=== PATIENT | female | born 1945 | race Caucasian/White ===

== ENCOUNTER 2017-02-26 13:57 | Inpatient (IN) | payer OTHER, MEDICAID ==
[2017-02-26] VITALS (9 sets, daily range): BP systolic 114–168; BP diastolic 61–92
[~2017-02-26] VITALS: Ht 167.6 cm; Wt 71.2 kg
--- NOTE | ~2017-02-26 | PR ---
[place], [place] PROGRESS NOTE NAME: SARAHI NELSON UNIT #: [id number] ROOM: 408 DOCTOR: JACK CALI MD,RAHEEL BIRTHDATE: [birth year] DOS: 03/01/2017 PULMONARY FOLLOWUP NOTE SUBJECTIVE: The patient was seen and examined on 03/01/2017. She has been noted without any acute respiratory complaints. The patient denies any symptoms of chest pain or any abdominal pain. The coughing of the patient has been improving. Shortness of breath has been resolving. OBJECTIVE: VITAL SIGNS: For the patient, which has been recorded shows the temperature of the patient noted as normal. The respiratory rate of the patient recorded as 18, heart rate of 107, and blood pressure 141/85. HEENT: Examination shows no acute change. NECK: Supple. CARDIOVASCULAR SYSTEM: S1, S2 is audible. LUNGS: The patient was noted without any wheezing or crackles at the present time. ABDOMEN: Soft, nontender. IMPRESSION: 1. Resolving acute exacerbation of chronic obstructive pulmonary disease. 2. Exertional hypoxia for the patient was also noted. PLAN OF TREATMENT: Continue the patient on current therapy, plan and management as in progress, other care, usual treatment and other therapies, plan and management and care. RAHEEL SANTIAGO MD CM:PNTRANS [phone] RAHEEL CALI MD 03/01/172124 interface
--- NOTE | ~2017-02-26 | CON ---
[place], [place] REPORT OF CONSULTATION NAME: SARAHI NELSON UNIT #: [id number] ROOM: 408 DOCTOR: RAHEEL SANABRIA MD BIRTHDATE: [birth year] DOS: 02/27/2017 PULMONARY CONSULTATION EVALUATION MANAGEMENT CONSULTATION REQUESTED BY: Hospitalist Services. REASON FOR CONSULTATION: For assessment of symptoms of COPD. HISTORY OF PRESENT ILLNESS: This is a 71-year-old white female who has been seen in my office initially on 02/11/2017. The patient has been noted with COPD at that time. The patient's oxygen saturation noted 93%. COPD was noted as severe COPD with FEV1 of only 30% after bronchodilators administration. She came back to the office for a 6-minute walk test that was done for the patient on 02/14/2017. The patient was noted with tachycardia with heart rate of 121 beats per minute with further worsens with 6-minute walk test. There was no oxygen desaturation. The patient was advised to be assessed in the hospital for the assessment of the tachycardia. The patient did not come to the hospital until 02/26/2017. She presented to the Emergency Room for further assessment of the current symptom. She does have symptoms of dyspnea, which occurs with exertion. The patient does not have any symptoms of sputum expectoration noted with mild coughing. Denies symptoms of chest pain. Denies any active wheezing. REVIEW OF SYSTEMS: CONSTITUTIONAL: Fatigue and tiredness noted without any fever or chills. EYES: Denies any burning, redness, or tenderness. EARS, NOSE, THROAT SYMPTOMS: No sore throat, hoarseness, otalgia, or postnasal drainage. CARDIOVASCULAR: Denies anginal pain, edema of the lower extremities. Denies any palpitation symptoms. GASTROINTESTINAL: Denies dysphagia, nausea, vomiting, diarrhea, abdominal pain, hematemesis, melena, or hematochezia. SKIN: Denies lesions or rashes. MUSCULOSKELETAL: Denies acute joint pain, redness, or tenderness. CENTRAL NERVOUS SYSTEM: No dizziness, headache, diplopia, or syncopal episodes. Remaining systems were reviewed with the patient and they were noted all negative. PAST MEDICAL HISTORY: Noted with history of severe centrilobular emphysema. SOCIAL HISTORY: The patient is , has 3 children. She has been noted with history of tobacco use since age of [age] years old, 1.5 packs of cigarettes per day, actively smoked until in the last couple of weeks, decreased the tobacco use to about a pack of cigarettes per day. Denies history of alcohol use or any illicit drugs use. The patient has worked in the [employer] for about 5 years. PAST SURGICAL HISTORY: Noted: 1. Appendectomy. 2. Complete hysterectomy. [place], [place] REPORT OF CONSULTATION NAME: SARAHI NELSON UNIT #: [id number] ROOM: [facility] DOCTOR: RAHEEL SANABRIA MD BIRTHDATE: [birth year] FAMILY HISTORY: Father at the age 5555 years old, complications of renal failure. The mother at age 8787 years old from complication related to acute stroke. HOME MEDICATIONS: Noted as use of: 1. Symbicort HFA inhaler 160/4.5 two puffs b.i.d. 2. ProAir HFA inhaler p.r.n. use. 3. Albuterol sulfate 2.5 mg nebulizer for this patient to use q.i.d. p.r.n. for shortness of breath. DRUG ALLERGY HISTORY: The patient noted as allergy to: 1. PENICILLIN. 2. NYQUIL. PHYSICAL EXAMINATION: GENERAL: This is a 71-year-old white female who has been noted currently awake and alert for this patient without any distress. VITAL SIGNS: Height was 5 feet 6 inches, weight of 157 pounds, BMI 25.3. Vital signs show a normal temperature, respiratory rate 16-20, heart rate of 110 noted on admission, later on noted normal heart rate of 86 beats per minute this morning. Blood pressure ranging between 140/90 to 121/80. Pulse oxygen saturation of the patient recorded as 98% on room air, 2 liters nasal cannula 100% saturation. HEENT: Head was atraumatic. Eyes nonicterus. NECK: Supple. CARDIOVASCULAR: S1, S2 audible. LUNGS: Noted without any wheezing or crackles. Breaths are noted generally diminished bilaterally. ABDOMEN: Soft, flat, nontender. EXTREMITIES: Show no edema, clubbing, cyanosis. LABORATORY DATA: CBC of the patient that was done yesterday on admission 02/26/2017, normal CBC. CMP yesterday on admission of the patient noted normal BUN and creatinine and the CMP was normal. Arterial blood gas for the patient, pH of 7.39, pCO2 of 40, pO2 of 93 on room air. The troponin for the patient yesterday and this morning noted normal. PT/PTT this morning normal. CMP this morning, glucose 132. Sodium 135, remaining CMP grossly normal. CBC this morning remains normal. Urine culture noted heavy growth of gram-negative bacilli. Chest x-ray of the patient 1 view shows changes of COPD, hyperinflation. CT scan of the chest for the patient, which was done with IV contrast and a CTA of the chest, the patient does not show any evidence of pulmonary embolism. There was no pulmonary infiltration noted. There was no abnormal lymphadenopathy. The parenchymal window of the patient's review shows evidence of centrilobular emphysema changes. There were no prominent pulmonary nodules, lung masses visible. IMPRESSION: 1. The patient who has been currently admitted to the hospital noted tachycardia for this patient, most likely related to the exacerbation of chronic [place], [place] REPORT OF CONSULTATION NAME: SARAHI NELSON UNIT #: [id number] ROOM: [facility] DOCTOR: RAHEEL SANABRIA MD BIRTHDATE: [birth year] obstructive pulmonary disease. 2. Resolution of tachycardia noted with use of the corticosteroids. 3. Chronic heavy nicotine abuse up to a pack of cigarettes per day. 4. The patient with possibility of acute bronchitis as well. 5. Questionable urinary tract infection with colonization of the urinary genital tract. PLAN OF TREATMENT: Continue current dose of Solu-Medrol. Continuation of bronchodilators. Tobacco cessation has been addressed with the patient. The patient was offered the nicotine replacement patches, but she does not wish to use those at this time. All other previous treatment to be continued as well. Usual treatment, all supportive care and therapies. Further treatment plan and management to be continued for the patient based on progression of the illness. RAHEEL SANTIAGO MD CM:CONSTR:REPORT OF CONSULTATION 1511 02/28/17 0238 interface
--- NOTE | ~2017-02-26 | CON ---
[place], [place] REPORT OF CONSULTATION NAME: SARAHI NELSON UNIT #: [id number] ROOM: 408 DOCTOR: JENS HOLT,RONYN BIRTHDATE: [birth year] DOS: 02/27/2017 ADDENDUM REASON FOR CONSULTATION: Tachycardia and dyspnea. Addendum to the consult note dictated by Dr. Riley Jorge. I personally examined and assessed the patient. Rhythm strips, labs reviewed. Past medical history reviewed. Case discussed with Dr. Jorge. Dr. Jorge's examination and assessment reflects my work. PHYSICAL EXAMINATION: CARDIAC: Heart was regular rhythm, slightly tachycardic, grade 1/6 systolic murmur. NECK: Slightly elevated neck veins. No carotid bruit. LUNGS: Few scattered rhonchi decreased at the bases. EXTREMITIES: Showed trace edema. Labs rhythm strips and EKG reviewed. IMPRESSION: 1. Sinus tachycardia, multifactorial including a chronic obstructive pulmonary disease exacerbation. Bronchodilators. Positive urinary tract infection and respiratory distress. 2. Hypertension. 3. Tobacco smoking. 4. Alcohol use. 5. Chronic obstructive pulmonary disease exacerbation. RECOMMENDATIONS: 1. The T4 levels are normal, and she is mostly asymptomatic. 2. The heart rates persistently high, then we will add low-dose beta blockers or Cardizem and monitor her heart rate and blood pressures. 3. Check 2D echo for LV function and valvular function. 4. The patient is strongly counseled to quit smoking, also quit drinking. 5. Consider Lexiscan stress test either prior to discharge or as outpatient. RONNY COLINDRES MD CM:CONSTR:REPORT OF CONSULTATION 1258 02/27/17 2832 interface
--- NOTE | ~2017-02-26 | PR ---
[place], [place] PROGRESS NOTE NAME: SARAHI NELSON UNIT #: [id number] ROOM: 408 DOCTOR: RAHEEL SANABRIA MD BIRTHDATE: [birth year] DOS: 02/28/2017 SUBJECTIVE: The patient was seen and examined on service 02/28/2017. She has been comfortably resting at this time. The coughing and shortness of breath symptoms continued to resolve. Culture of the sputum preliminary showed normal jazlyn. The Gram stain for the patient from yesterday was pending at this time. She has been noted with tachycardia with mildly uncontrolled hypertension this morning again and in sinus tachycardia with previous normal heart rate noted yesterday. OBJECTIVE: VITAL SIGNS: For the patient which has been recorded showed the temperature noted normal, respiratory rate 19, heart rate of 124, blood pressure 162/96. The pulse oxygen saturation of the patient recorded as 95% on 2 L nasal cannula. HEENT: Showed no new change. NECK: Supple. CARDIOVASCULAR: S1, S2 audible. LUNGS: Noted without any wheezing or crackles. Breaths are noted mild to moderately decreased bilaterally. ABDOMEN: Soft, nontender. LABORATORY DATA: BMP of this morning essentially noted normal except glucose minimally elevated at 130. Blood culture from the 02/26/2017 showed no bacterial growth. IMPRESSION: 1. The patient who has been currently noted with acute exacerbation of chronic obstructive pulmonary disease with acute tracheobronchitis noted recurrent tachycardia, etiology is unclear. There was no evidence of pulmonary embolism noted with recent CT of the chest. 2. Mildly uncontrolled hypertension. The etiology of the patient's tachycardia would be considered variable from deformities including chronic obstructive pulmonary disease exacerbation and other issues. PLAN OF TREATMENT: Addressing the tachycardia of the patient and hypertension by the Cardiology Services. The patient could be ready for home discharge once stabilized medically otherwise from the pulmonary standpoint. In the meantime, continue the patient on current therapy, plan of management as in progress. Usual care. All other supportive care and treatments. [place], [place] PROGRESS NOTE NAME: SARAHI NELSON UNIT #: [id number] ROOM: 408 DOCTOR: RAHEEL SANABRIA MD BIRTHDATE: [birth year] RAHEEL SANTIAGO MD CM:PNROLO [phone] RAHEEL CALI MD 03/01/17300 interface
[~2017-02-26 13:57] MED LIST: Albuterol Sulfat3 ML NEB; DELTASONE20 MG PO; PHENERGAN25 M1 PO; VENTOLIN H0.09 MG/AC INH; VIBRAMYCIN100 MG PO
[2017-02-26 14:54] LABS: BASO # 0.1 10*3/uL (0.0-0.1); BASO % 0.8 % (0.0-1.0); EOS # 0.1 10*3/uL (0.0-0.4); EOS % 1.6 % (1.0-4.0); HEMATOCRIT 39.7 % (37.0-47.0); HEMOGLOBIN 13.3 g/dl (12.0-16.0); MEAN CELL VOLUME 94.7 fl (81.0-99.0); MEAN CORPUSCULAR HGB 31.7 pg (27.0-31.0); MEAN CORPUSCULAR HGB CONC 33.5 g/dl (33.0-37.0); MEAN PLATELET VOLUME 9.7 fl (9.6-12.3); MONO # 0.9 10*3/uL (0.1-1.0); MONO % 9.7 % (3.0-9.0); NEUT # 6.9 10*3/uL (2.3-7.9); NEUT % 76.6 % (47.0-73.0); PLATELET COUNT AUTOMATED 391 10*3/uL (130-400); RED BLOOD COUNT 4.19 10*6/uL (4.10-5.10); RED CELL DISTRI WIDTH 14.6 % (0-14.5)
[2017-02-26 15:11] LABS: ALBUMIN 3.3 gm/dl (3.1-4.5); ALKALINE PHOSPHATASE 94 U/L (45-117); BILIRUBIN, TOTAL 0.4 mg/dl (0.2-1.0); BUN 14 mg/dl (7-24); CARBON DIOXIDE 31 mmol/L (21-32); CHLORIDE 99 mmol/L (98-107); CPK 55 U/L (26-192); EST GLOM FILT AFRICAN AMERICAN > 60 ml/min; GLUCOSE 107 mg/dL (65-99); LDH 151 U/L (84-246); MAGNESIUM 1.8 mg/dL (1.5-2.1); SGOT/AST 14 IU/L (3-35); SGPT/ALT 17 U/L (12-78); SODIUM 135 mmol/L (136-145); TOTAL PROTEIN 7.8 gm/dL (6.4-8.2)
[2017-02-26 15:12] LABS: TROPONIN I < 0.015 ng/ml (<0.045)
[2017-02-26 16:08] LABS: BILIRUBIN NEGATIVE (NEGATIVE); BLOOD NEGATIVE (NEGATIVE); CLARITY SL CLOUDY (CLEAR); COLOR YELLOW (YELLOW); GLUCOSE NEGATIVE (NEGATIVE); KETONE NEGATIVE (NEGATIVE); LEUKO ESTERASE 3+ (NEGATIVE); NITRITE POSITIVE (NEGATIVE); PROTEIN NEGATIVE (NEGATIVE); SPECIFIC GRAVITY 1.015 (1.005-1.030); UROBILINOGEN 0.2 E.U./dl (0.2-1.0)
[2017-02-26 16:23] LABS: BACTERIA 4+; URINE REFLEX COMMENT YES (NO); WBC TNTC wbc/hpf (0-5)
[2017-02-26 17:36] LABS: ABG BASE EXCESS -0.2 mmol/L (-2.0-2.0); ABG CO2 CONTENT 25.3 mmol/L (23-27); ABG HCO3 24.1 mmol/l (22-26); ABG TEMPERATURE 98.7 F (98.0-99.0); ARTERIAL BLOOD GAS PH 7.391 (7.35-7.45); ARTERIAL BLOOD GAS PO2 93.1 mmHg (80-90)
[2017-02-26] MEDS ORDERED: SYMBICORT1 AE1 INH (21:07)
[2017-02-26] MEDS ORDERED: PROAIR HFA8.5 GM INH (21:07)
[2017-02-27] VITALS: BP 140/90
[2017-02-27 06:19] LABS: HEMATOCRIT 40.4 % (37.0-47.0); HEMOGLOBIN 13.5 g/dl (12.0-16.0); MEAN CELL VOLUME 94.2 fl (81.0-99.0); MEAN CORPUSCULAR HGB 31.5 pg (27.0-31.0); MEAN CORPUSCULAR HGB CONC 33.4 g/dl (33.0-37.0); MEAN PLATELET VOLUME 9.8 fl (9.6-12.3); PLATELET COUNT AUTOMATED 390 10*3/uL (130-400); RED BLOOD COUNT 4.29 10*6/uL (4.10-5.10); RED CELL DISTRI WIDTH 14.6 % (0-14.5)
[2017-02-27 06:39] LABS: HEMOGLOBIN A1c 5.5 % (4.8-5.6); PROTHROMBIN TIME 10.4 SECONDS (9.0-12.4)
[2017-02-27 06:44] LABS: BILIRUBIN, TOTAL 0.3 mg/dl (0.2-1.0); BUN 13 mg/dl (7-24); CARBON DIOXIDE 31 mmol/L (21-32); CHLORIDE 100 mmol/L (98-107); CHOLESTEROL 216 mg/dL (<200); EST GLOM FILT AFRICAN AMERICAN > 60 ml/min; GLUCOSE 132 mg/dL (65-99); MAGNESIUM 1.7 mg/dL (1.5-2.1); PHOSPHOROUS 3.3 mg/dL (2.5-4.9); POTASSIUM 4.5 mmol/L (3.5-5.1); SGOT/AST 15 IU/L (3-35); SGPT/ALT 17 U/L (12-78); SODIUM 135 mmol/L (136-145); TRIGLYCERIDES 33 mg/dl (<150); VLDL CHOLESTEROL 7 mg/dL (6-40)
[2017-02-27 06:50] LABS: ALKALINE PHOSPHATASE 94 U/L (45-117); FREE T4 0.89 ng/dl (0.76-1.46); HDL CHOLESTEROL 94 mg/dl (40-60); LDL CHOLESTEROL 115 mg/dL (9-159); THYROID STIM HORMONE (HS) 0.268 uIU/ml (0.358-4.75); TOTAL PROTEIN 7.6 gm/dL (6.4-8.2)
[2017-02-27 07:06] LABS: LYMPHOCYTE # 0.3 10*3/uL (1.3-4.4); MONOCYTE # 0.1 10*3/uL (0.1-1.0); NEUTROPHIL # 4.7 10*3/uL (2.3-7.9); NEUTROPHILS 94 % (47-73); TOTAL CELLS COUNTED 100 #CELLS
[2017-02-27 07:07] LABS: PLATELET SUFFICIENCY NORMAL (NORMAL)
[2017-02-27 08:00] VITALS: BP 168/90
[2017-02-27 09:52] LABS: VITAMIN D, 25-HYDROXY 8.2 ng/mL (30-100)
[2017-02-27 09:56] LABS: FOLIC ACID > 24.00 ng/mL (>5.38)
[2017-02-27 12:00] VITALS: BP 134/78
[2017-02-27 16:00] VITALS: BP 136/70
[2017-02-27 20:00] VITALS: BP 149/80
[2017-02-28] VITALS: BP 143/64; BP 148/88
[2017-02-28 06:24] LABS: BUN 19 mg/dl (7-24); CARBON DIOXIDE 30 mmol/L (21-32); CHLORIDE 105 mmol/L (98-107); EST GLOM FILT AFRICAN AMERICAN > 60 ml/min; GLUCOSE 130 mg/dL (65-99); POTASSIUM 4.9 mmol/L (3.5-5.1); SODIUM 139 mmol/L (136-145)
[2017-02-28 08:00] VITALS: BP 162/96
[2017-02-28 12:00] VITALS: BP 142/87
[2017-02-28 16:00] VITALS: BP 138/77
[2017-02-28 20:00] VITALS: BP 148/88
[2017-03-01] VITALS: BP 140/85
[2017-03-01 08:00] VITALS: BP 107/97
[2017-03-01 12:00] VITALS: BP 145/81
[2017-03-01] MEDS ORDERED: PREDNISONE10 MG PO (15:38)
[2017-03-01] MEDS ORDERED: LOPRESSOR25 MG PO (15:38)
[2017-03-01] MEDS ORDERED: NYSTATIN100000 U/M PO (15:38)
[2017-03-01] MEDS ORDERED: LEVAQUIN500 M2 PO (15:38)
[2017-03-01 16:00] VITALS: BP 143/77
== END 2017-03-01 17:46 | disposition home or self-care (01) | DRG 871 ==
LOC: ED 13:57 → EDHOLD 18:21 → 4E 18:21
PROVIDERS: Family Medicine; Internal Medicine; Physician Assistant
DX: A41.9 Sepsis, unspecified organism (principal); J18.9 Pneumonia, unspecified organism; N39.0 Urinary tract infection, site not specified; B37.0 Candidal stomatitis; J44.0 Chronic obstructive pulmonary disease with (acute) lower respiratory infection; J44.1 Chronic obstructive pulmonary disease with (acute) exacerbation; E87.1 Hypo-osmolality and hyponatremia; R09.02 Hypoxemia; I10 Essential (primary) hypertension; J20.9 Acute bronchitis, unspecified; R73.9 Hyperglycemia, unspecified; D72.810 Lymphocytopenia; B96.20 Unspecified Escherichia coli [E. coli] as the cause of diseases classified elsewhere; Z16.23 Resistance to quinolones and fluoroquinolones; F17.210 Nicotine dependence, cigarettes, uncomplicated; Z82.61 Family history of arthritis; Z84.1 Family history of disorders of kidney and ureter; Z88.0 Allergy status to penicillin; Z88.6 Allergy status to analgesic agent; Z90.710 Acquired absence of both cervix and uterus; Z90.49 Acquired absence of other specified parts of digestive tract; Z71.6 Tobacco abuse counseling; Z88.1 Allergy status to other antibiotic agents; Z88.8 Allergy status to other drugs, medicaments and biological substances; Z79.51 Long term (current) use of inhaled steroids; Z79.2 Long term (current) use of antibiotics; Z79.899 Other long term (current) drug therapy; Z72.89 Other problems related to lifestyle

== ENCOUNTER → 2017-11-28 | Outpatient (CLI) | payer OTHER, MEDICAID ==
[~2017-11-28] MED LIST changes: +BUSPAR15 MG PO; +CONSTULOSE10 GM/151 PO; +INCRUSE ELLI62.5 MCG INH; +LEVAQUIN500 M2 PO; +LOPRESSOR25 MG PO; +NYSTATIN100000 U/M PO; +PREDNISONE10 MG PO; +PROAIR HFA8.5 GM INH; +SYMBICORT1 AE1 INH
== END | disposition home or self-care (01) ==
LOC: CT 13:50
DX: I25.10 Atherosclerotic heart disease of native coronary artery without angina pectoris (principal); C78.7 Secondary malignant neoplasm of liver and intrahepatic bile duct; R59.9 Enlarged lymph nodes, unspecified; C74.91 Malignant neoplasm of unspecified part of right adrenal gland; R91.8 Other nonspecific abnormal finding of lung field

== ENCOUNTER 2017-12-02 05:19 | Inpatient (IN) | payer OTHER, MEDICAID ==
[2017-12-02] VITALS (7 sets, daily range): BP systolic 130–171; BP diastolic 65–89
[~2017-12-02] VITALS: Ht 165.1 cm; Wt 77.1 kg
--- NOTE | ~2017-12-02 | PR ---
[place], [place] PROGRESS NOTE [id number] UN[facility] #: [id number] ROOM: 504 DOCTOR: REY KURTZ MD BIRTHDATE: [birth year] DOS: 12/09/2017 SUBJECTIVE: The patient is doing better. She is eating. She is alert. She was not scheduled for CT-guided biopsy as of now. She is awake, alert and responsive. REVIEW OF SYSTEMS: HEENT: No trouble swallowing. No double vision. No loss of vision. No pain. ENT AND RESPIRATORY: No wheeze. No change in voice. No cough. No shortness of breath. No coughing up blood. No epistaxis. CARDIOLOGIC: No chest pain. No dizziness. No irregular heartbeat. No leg edema. No palpitations. No shortness of breath. HEMATOLOGIC AND LYMPH: No past transfusion. No fatigue. No loss of appetite. No easy bruising. GASTROENEROLOGIC: No change in bowel habits. No vomiting blood. No abdominal cramping. No nausea. No vomiting. No diarrhea. No constipation. No blood in stool. FEMALE REPRODUCTIVE: No dyspareunia. No pelvic pain. MUSCULOSKELETAL: No back pain. No muscle pain or weakness. No tingling/numbness. UROLOGIC: No pain with urination. No difficulty urinating. No frequent urination. NEUROLOGIC: No burning pain in feet. No trouble with coordination. No loss of consciousness. No headache. No tingling/numbness. No memory loss. PHYSICAL EXAMINATION: GENERAL: She is a pleasant woman in no apparent distress. VITAL SIGNS: Stable. She is afebrile. HEENT: Normocephalic, atraumatic NECK AND THYROID: Supple. No JVD, thyromegaly, or lymphadenopathy. HEART: Normal S1, S2. Regular rate and rhythm. LUNGS: Clear to auscultation and percussion. ABDOMEN: Soft. Nontender, nondistended. Bowel sounds present. EXTREMITIES: Normal ROM. No clubbing. No edema. LABORATORY DATA: White count 12.8, hemoglobin 10.2, hematocrit 30.5, platelet count of 269. TIBC 189, iron of 109, saturation 57 and vitamin B12 is 454. Folic acid 19.26. Ferritin is pending. ASSESSMENT: 1. Metastatic cancer of unknown primary. 2. Anemia of neoplastic disorder. 3. Bilateral pulmonary embolism. PLAN: The patient is on heparin, which can be stopped a few hours before the CT-guided biopsy and can be resumed a few hours after the biopsy is done. I have discussed the case with the resident. Tumor markers are still pending. Depending on the biopsy further intervention. Discussed with the patient in detail. [place], [place] PROGRESS NOTE NAME: SARAHI NELSON UNIT #: [id number] ROOM: [facility] DOCTOR: REY KURTZ MD BIRTHDATE: [birth year] REY KURTZ MD CM:ALPHONSO [phone] REY KURTZ MD 12/09/17 0858 interface
--- NOTE | ~2017-12-02 | PR ---
[place], [place] PROGRESS NOTE NAME: SARAHI NELSON UNIT #: [id number] ROOM: 504 DOCTOR: JACK CALI MD,RAHEEL BIRTHDATE: [birth year] DOS: 12/08/2017 SUBJECTIVE: The patient was not noted with any ongoing new acute complaints at this time. She has a CT of the chest that was done yesterday, ordered by the primary care attending, described as nonsaddle subsegmental pulmonary emboli in the right lower lobe pulmonary arterial branches and one in the left lower lobe pulmonary arterial branch. Mild lymphadenopathy noted. The pulmonary nodule noted previously remains unchanged. She has not been reported with any symptoms of chest pain. Denies symptoms of hemoptysis. The patient denied symptoms of headache or diplopia. Denies symptoms of nausea, vomiting, or diarrhea. Denies abdominal pain or hematuria. Remaining systems were reviewed. They were noted all negative. OBJECTIVE: VITAL SIGNS: Reviewed, showed the temperature noted as normal, heart rate ranged between 119 and 88. The respiratory rate ranged between 18 and 20. Blood pressure 135/58-154/78. The pulse oxygen saturation of the patient noted on 2 liters nasal cannula 100% saturation. HEENT: Examination shows head was atraumatic. Eyes nonicterus. NECK: Supple. CARDIOVASCULAR: S1, S2 is audible. LUNGS: The patient was noted without any wheezing or crackles at this time. ABDOMEN: Noted soft, nontender. Bowel sounds present. EXTREMITIES: Without any acute edema, clubbing, or cyanosis. MUSCULOSKELETAL: Without any acute deformities. SKIN: No lesions or rashes. CENTRAL NERVOUS SYSTEM: General weakness, otherwise intact. LABORATORY DATA AND IMAGING STUDIES: PTT was noted 43.5. Blood culture, no bacterial growth from 12/02/2017. Culture of the sputum from 12/04/2017 shows light growth of yeast. CBC for the patient that was done this morning showed WBC count 12.8, hemoglobin 10.2, hematocrit 30.5, platelet count 269,000. CMP this morning, normal BUN and creatinine. CT of the chest as already reported in the earlier portion of the note. IMPRESSION: 1. Acute bilateral pulmonary emboli, which were noted in subsegmental branches of the pulmonary artery of right lower and left lower lobe ____ evidence of nonsaddle embolus. 2. Suspected gastrointestinal malignancy with pulmonary nodule and metastasis to the liver as well as adrenal gland enlargement, status post colonoscopy recently. PLAN OF MANAGEMENT: The patient will be started on the Lovenox 1 mg/kg body weight twice a day, which is the drug of choice for this patient for the thromboembolism management of the patient with the current malignancy and hypercoagulable status. Continuation in the meantime other previous therapy, plan of management and care plan. Usual care. Supportive care. Monitor for any abnormal bleeding or any other effects of the patient related to the [place], [place] PROGRESS NOTE NAME: SARAHI NELSON UNIT #: [id number] ROOM: [facility] DOCTOR: JACK CALI MD,RAHEEL BIRTHDATE: [birth year] anticoagulation. Other supportive plan of management. Await the results of the biopsy of the colon polyp. Other supportive therapy, plan of management as in progress. Usual care. RAHEEL SANTIAGO MD CM:PNTRANS [phone] RAHEEL CALI MD 12/08/17 2331 interface
--- NOTE | ~2017-12-02 | PR ---
[place], [place] PROGRESS NOTE NAME: SARAHI NELSON UNIT #: [id number] ROOM: 504 DOCTOR: RAHEEL SANABRIA MD BIRTHDATE: [birth year] DOS: 12/06/2017 SUBJECTIVE: She has been noted very comfortable at this time, resting in the bed without any acute distress, not reported any symptoms of chest pain or any abdominal pain. The patient has not been noted symptoms of hemoptysis. OBJECTIVE: VITAL SIGNS: For the patient, which has been recorded showed the temperature noted normal, respirations 18, heart rate 90, blood pressure 130/86 to 147/74. Pulse oxygen saturation on 2 liters nasal cannula 100% saturation. HEENT: No acute change. NECK: Supple. CARDIOVASCULAR: S1, S2 audible. LUNGS: The patient was noted without any wheezing or crackles at the present time. ABDOMEN: Soft, nontender. EXTREMITIES: The patient was noted without any acute edema. LABORATORY DATA: Culture of the sputum for the patient was noted with mild growth of yeast. BMP noted normal BUN and creatinine. CBC with anemia, otherwise normal. IMPRESSION: 1. Status post colonoscopy. 2. Metastatic cancer of the lungs. The patient is most likely degenerating from the colon was considered very likely. 3. Stable chronic obstructive pulmonary disease with progressive resolution and improvement. PLAN OF MANAGEMENT: Reduce Solu-Medrol dose of the patient to 20 mg daily at this time. Continue other supportive therapy, plan of management and care plan. Additional treatment changes to be made for the patient in the treatment as necessary. Await for the results of the GI workup. [place], [place] PROGRESS NOTE NAME: SARAHI NELSON UNIT #: [id number] ROOM: 504 DOCTOR: RAHEEL SANABRIA MD BIRTHDATE: [birth year] RAHEEL SANTIAGO MD CM:PNTRANS [phone] RAHEEL CALI MD 12/07/17 0447 interface
--- NOTE | ~2017-12-02 | EKG ---
[place], [place] ELECTROCARDIOGRAM REPORT NAME: SARAHI NELSON UNIT #: [id number] ROOM: 504 DOCTOR: JACK CALI MD,RAHEEL BIRTHDATE: [birth year] DOS: 12/02/2017 The echocardiogram done on 12/02/2017 for the patient at 05:43 a.m. Normal sinus rhythm noted with heart rate of 89 beats per minute. Left atrial enlargement was noted. Nonspecific ST-T changes were noted. RAHEEL SANTIAGO MD CM:EKGRPT:ELECTROCARDIOGRAM REPORT 1544 [id number] RAHEEL CALI MD
--- NOTE | ~2017-12-02 | PR ---
[place], [place] PROGRESS NOTE NAME: SARAHI NELSON UNIT #: [id number] ROOM: 504 DOCTOR: JACK CALI MDRAHEEL BIRTHDATE: [birth year] DOS: 12/03/2017 SUBJECTIVE: The patient has been noted somewhat better from yesterday. She has been noted reduction in symptoms of shortness of breath and cough. The abdominal pain was noted well controlled. There were no symptoms of nausea, vomiting, hematemesis or melena reported. She denies symptoms of headache or dizziness. General weakness and fatigue were noted. There were no symptoms of seizures. REVIEW OF SYSTEMS: Remaining systems were reviewed with the patient, they were noted all negative. OBJECTIVE: VITAL SIGNS: She has a normal temperature, respiratory rate 20, heart rate 102, mild sinus tachycardia, blood pressure 143/87 recorded this morning. The pulse oxygen saturation on 3 liters nasal cannula 100% saturation noted. HEENT: No acute change. NECK: Supple. CARDIOVASCULAR: S1, S2 audible. LUNGS: The patient was noted with mild expiratory wheezing, decreased from previous examination. ABDOMEN: Noted flat, soft, nontender. Bowel sounds present. EXTREMITIES: Without any acute edema. CENTRAL NERVOUS SYSTEM: Intact. No focal deficit. LABORATORY DATA: CT scan of the chest for the patient that was completed yesterday noted subcentimeter bilateral pulmonary nodules, randomly distributed, ranges from 8 mm to 9 mm size or less. They were noted bilaterally in the lungs, predominantly in the lower portion of the lungs. There was no lymphadenopathy or any abnormal mass or lesions seen. CT scan of the chest was personally reviewed from the PACS images. BMP: Glucose 144, otherwise noted as normal. CBC of the patient this morning: Hemoglobin 10.3, hematocrit 32.1, WBC count normal, platelet count was normal. CEA level of the patient that was completed today was noted 3955. Prealbumin level of the patient which was obtained yesterday noted as 14. IMPRESSION: 1. The patient has been currently noted with resolving acute exacerbation of chronic obstructive pulmonary disease. 2. Chronic hypoxic respiratory failure, stable on current oxygen supplementation. 3. Strong possibility of metastatic cancer originating from the GI tract of the patient with mets to the lung and the liver and adrenal gland enlargement. Adrenal gland metastasis is not commonly seen for the patient, but has been reported the patient with metastatic malignancy for from the GI sources. 4. Protein-calorie malnutrition was also noted with severe debility. 5. Abdominal pain secondary to current, most likely malignant process. PLAN OF MANAGEMENT: Encourage the patient nutritional support. Continue [place], [place] PROGRESS NOTE NAME: SARAHI NELSON UNIT #: [id number] ROOM: [facility] DOCTOR: JACK CALI MD,RAHEEL BIRTHDATE: [birth year] bronchodilators, oxygen supplementation and corticosteroids. Additional treatment changes will be made based on progression of illness. Continue the pain management. GI consultation has been obtained for the patient for the assessment of GI tract. If there be no mass or lesion noted with the colonoscopy, the patient will be ordered CT-guided needle aspiration biopsy of the liver or the adrenal gland. The dose of Solu-Medrol for the patient at this time will be decreased to 40 mg b.i.d. because of reduction and improvement in the respiratory symptoms noted with resolving acute exacerbation of COPD. Usual care, other plan of therapy and care plan. The assessment and management has been discussed with the patient's primary care attending and with the patient's family members, her daughter at the bedside. The patient has been offered nutritional supplements such as Ensure or other calorie drinks, but the patient does not wish to use them. RAHEEL SANTIAGO MD CM:PNTRANS [phone] RAHEEL CALI MD 12/04/17 0240 interface
--- NOTE | ~2017-12-02 | CON ---
[place], [place] REPORT OF CONSULTATION NAME: SARAHI NELSON UNIT #: [id number] ROOM: [facility] DOCTOR: RAHEEL SANABRIA MD BIRTHDATE: [birth year] DOS: 12/02/2017 CONSULTATION REQUESTED BY: Hospitalist service. REASON FOR CONSULTATION: For assessment of the current symptoms of shortness of breath. HISTORY OF PRESENT ILLNESS: This is a 72-year-old white female patient with a known past history of COPD. She has been admitted to the hospital as the patient developed symptoms of progressive pain which has been described in the abdomen, per the patient mostly across the abdomen. The pain was described as moderate to severe. The pain was associated with possibly some constipation or diarrhea. She does not have symptoms of hematemesis or melena. With the current symptoms of GI tract, she has also reported symptoms of shortness of breath, which has been noted gradually increased. She denies symptoms of chest pain with that. Denies symptoms of hemoptysis. The patient reported symptoms of wheezing, which has also been increased recently as well. REVIEW OF SYSTEMS: CONSTITUTIONAL: Symptoms of fatigue and tiredness reported. Denies symptoms of fever or chills. EYES: Denies any burning, redness, or tenderness. EARS, NOSE, THROAT SYMPTOMS: Denies sore throat, hoarseness, otalgia, postnasal drainage. CARDIOVASCULAR: Denies anginal pain, edema, pain of the lower extremities. GASTROINTESTINAL: Pain in the abdomen, which has been noted diffuse, intermittent for the past about 2-3 weeks as per daughter. It was not associated with symptoms of nausea, vomiting, diarrhea, hematemesis, melena, hematochezia, or dysphagia. GENITOURINARY: No dysuria, suprapubic pain, or hematuria. SKIN: Denies lesions or rashes. MUSCULOSKELETAL: No acute joint pain, redness, or tenderness. CENTRAL NERVOUS SYSTEM: General weakness and fatigue were noted. Denies symptoms of fever or chills. Remaining systems were reviewed with the patient, they were noted all negative. PAST MEDICAL HISTORY: 1. The patient was noted with history of COPD, which was noted as end stage with FEV1 of 28% noted with the last pulmonary function testing, which was done on 11/10/2017 assessment. 2. Chronic hypoxic respiratory failure with the use of oxygen supplementation 2 liters nasal cannula continuous use. 3. History of essential hypertension. PAST SURGICAL HISTORY: 1. Appendectomy. 2. Hysterectomy. SOCIAL HISTORY: The patient lives at home. She is and has 2 children. Denies history of alcohol use or any illicit drugs. Tobacco use noted from age [place], [place] REPORT OF CONSULTATION NAME: SARAHI NELSON UNIT #: [id number] ROOM: [facility] DOCTOR: RAHEEL SANABRIA MD BIRTHDATE: [birth year] of 15 years old about a pack of cigarettes per day that was discontinued in August 2017. She does not have a history of occupation related pulmonary exposure. FAMILY HISTORY: The patient's father at 55 years old, complication of renal failure. Mother at age 86, complications of acute stroke. HOME MEDICATIONS: Reported as use of albuterol sulfate via nebulizer, Symbicort HFA inhaler, BuSpar, lactulose, Lopressor, Incruse Ellipta, ProAir HFA inhaler and oxygen supplementation 2 liters nasal cannula. DRUG ALLERGIES: NOTED ALLERGY: 1. NYQUIL. 2. PENICILLINS. PHYSICAL EXAMINATION: GENERAL: This is a 72-year-old female who has been currently noted lying in the bed in the Intensive Care Unit at the time of the assessment. Her height was recorded at 5 feet 5 inches, weight 170 pounds, BMI 28.2. VITAL SIGNS: For the patient which were recorded shows temperature noted as normal since admission, respiratory rate 18-24, heart rate of 99-100, blood pressure 168/89-153/72. Pulse oxygen saturation was recorded as 99 on 3 L nasal cannula. HEENT: Examination shows head was atraumatic. Eyes: No icterus. NECK: Supple. Oral mucosa is moist. No abnormal lesions in the mouth. CARDIOVASCULAR SYSTEM: S1, S2 audible. LUNGS: The patient noted with general reduction in the breath sounds bilaterally with mild to moderate expiratory wheezing without any crackles. ABDOMEN: Flat, soft with some tenderness noticed on superficial palpation on the abdomen. MUSCULOSKELETAL: The patient with chronic loss of muscle mass. There were no deformities of the extremities on musculoskeletal symptom examination. CENTRAL NERVOUS SYSTEM: Cranial nerves 2-12 intact. Focal deficit. General weakness and fatigue was noted. SKIN: The visible skin no lesions or rashes. LABORATORY DATA: The CBC that was done on 12/02/2017, hemoglobin 10.6, hematocrit 32.7, WBC count normal, platelet count were normal. Lactic acid 1.2. Arterial blood gas for the patient this morning on admission, pH of 7.37, pCO2 of 48, pO2 of 106, noted 100% nonrebreather mask. The CMP of the patient on 12/02/2017, glucose 115, BUN 11, creatinine was normal, sodium 131. The LFTs noted as albumin 2.9, otherwise normal. PT and PTT this morning normal. Troponin 3 sets for this patient, which were done from admission noted normal. Chest x-ray of the patient shows hyperinflated changes, COPD without any acute pulmonary abnormalities. CT scan of the abdomen and pelvis, which was done for this patient by the primary care attending was reported with findings of multiple liver metastatic disease noted and a 5-6 cm mass of the right adrenal gland was also described. Small nodules subcentimeter noted in lower portion on CT of the thorax, which was taken as a part of the current CT scan of the abdomen picture. [place], [place] REPORT OF CONSULTATION NAME: SARAHI NELSON UNIT #: [id number] ROOM: [facility] DOCTOR: JACK CALI MDRAHEEL BIRTHDATE: [birth year] IMPRESSION: 1. The patient was currently admitted to the hospital with noted abdominal pain. Current abnormality in the CT scan of the abdomen with possibility of malignancy may be arising from the colon would be considered. Rule out any pulmonary abnormality or any mass lesion; however, the chest x-ray was not suggestive of any large mass, which was present with a simple one-view chest x-ray. 2. The patient with history of chronic hypoxic respiratory failure with current acute exacerbation of chronic obstructive pulmonary disease as well. 3. The patient with history of essential hypertension as well. PLAN OF MANAGEMENT: Continue oxygen to maintain pulse oxygen saturation 90% greater. Continuation of the bronchodilator every 4 hours is ordered. Solu-Medrol will be continued 60 mg q.8h. for the exacerbation of COPD. The dose will be decreased most likely tomorrow based on improvement in the respiratory status. Await for the patient's CT scan of the chest completion, which has been already ordered to be done today for any additional problem. The current small nodule which is noted anteriorly distributed in the lungs suggest possibly a metastatic disease. Nutrition support to be done. The patient would be ordered prealbumin level as well to assess the patient for nutritional status in general. Titrate oxygen to maintain saturation 90% or greater. Other supportive therapy, plan of management care with additional treatment changes will be made based on progression of the illness. Order the sputum for Gram stain and culture as well. Supportive care therapy, plan of management and care. Pain control for the patient, strong consideration for the GI consultation to get the colonoscopy as well. Certainly if the colonoscopy did not establish any malignancy, the biopsy of the liver mass right adrenal gland would be considered. In the meantime, other supportive therapy, plan of management care to be continued. Her prognosis remains guarded. DVT prophylaxis with the Lovenox would be given. Thank you for allowing me to participate in the care of this patient. RAHEEL SANTIAGO MD CM:CONSTR:REPORT OF CONSULTATION 1507 12/03/17 0256 interface
--- NOTE | ~2017-12-02 | PR ---
[place], [place] PROGRESS NOTE NAME: SARAHI NELSON UNIT #: [id number] ROOM: 504 DOCTOR: JACK CALI MD,RAHEEL BIRTHDATE: [birth year] DOS: 12/09/2017 SUBJECTIVE: She has been noted comfortable at this time, getting intravenous therapeutic unfractionated therapeutic heparin. Denies symptoms of abdominal pain, coughing, shortness of breath or chest pain. OBJECTIVE: VITAL SIGNS: For the patient which has been recorded showed normal temperature, respiration 16, heart 100 to 87, blood pressure 137/73 this morning. The pulse oxygen saturation on 2 liters 100% saturation. HEENT: Examination shows head was atraumatic. Eyes nonicterus. NECK: Supple. CARDIOVASCULAR SYSTEM: S1, S2 is audible. LUNGS: The patient was noted without any wheeze or crackles. ABDOMEN: Soft, nontender. LABORATORY DATA: PTT this morning was noted 62.6 therapeutic. IMPRESSION: 1. The patient with acute pulmonary embolism, non-saddle in bilateral subsegmental branches, right and the left lower lobe, stable. 2. The patient with chronic obstructive pulmonary disease with acute exacerbation, also improved. 3. The patient with current suspected gastrointestinal malignancy as well. The colonoscopy was done for this patient on this admission with the results of the colon polyps pending. PLAN OF MANAGEMENT: The patient has been switched to the 1 mg/kg body weight q.12 hours, therapeutic Lovenox which is the drug of choice for the current suspected malignancy of the colon to treat the pulmonary embolism and also for the chronic hypercoagulable state of malignancy. Continue the supportive therapy, plan of management care plan. Usual treatment, other care. RAHEEL SANTIAGO MD CM:PNTRANS [phone] RAHEEL CALI MD 12/09/17 2325 interface
--- NOTE | ~2017-12-02 | PR ---
[place], [place] PROGRESS NOTE NAME: SARAHI NELSON UNIT #: [id number] ROOM: 504 DOCTOR: RAHEEL SANABRIA MD BIRTHDATE: [birth year] DOS: 12/11/2017 PULMONARY FOLLOWUP SUBJECTIVE: The patient has been noted comfortable at this time, underwent liver biopsy yesterday without any difficulty with the CT guidance. The patient denies symptoms of shortness of breath, cough, or any abdominal pain at this time. OBJECTIVE: VITAL SIGNS: Normal temperature, respiratory rate 20, heart rate 86, blood 154/82. The pulse oxygen saturation was recorded as 99% saturation on 2 liters nasal cannula. HEENT: Examination shows head was atraumatic. Eyes, nonicterus. NECK: Supple. CARDIOVASCULAR: S1, S2 is audible. LUNGS: Noted without any wheezing or crackles. ABDOMEN: Soft, nontender. LABORATORY DATA: Results of the liver biopsy was noted with evidence of poorly differentiated cancer, further characterization pending to be done by the [facility] laboratory. IMPRESSION: 1. 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 2. Resolved exacerbation of chronic obstructive pulmonary disease on this admission. PLAN OF THERAPY: No changes from the pulmonary standpoint at this time will be necessary. Discharge planning as per primary care attending. No change in the respiratory medication management. [place], [place] PROGRESS NOTE NAME: SARAHI NELSON UNIT #: [id number] ROOM: 504 DOCTOR: RAHEEL SANABRIA MD BIRTHDATE: [birth year] RAHEEL SANTIAGO MD CM:PNTRANS [phone] RAHEEL CALI MD 12/12/17 0303 interface
--- NOTE | ~2017-12-02 | CON ---
[place], [place] REPORT OF CONSULTATION NAME: SARAHI NELSON UNIT #: [id number] ROOM: 504 DOCTOR: REY KURTZ MD BIRTHDATE: [birth year] DOS: 12/03/2017 HISTORY OF PRESENT ILLNESS: The patient is a very pleasant 72-year-old woman who noted to have increasing shortness of breath, which is worsening over the last few months, has been using 2 liters oxygen continuously at home, but it was getting more difficult to walk around and do some activities. The last few days ago, her breathing had got worsened with a productive cough and clear sputum and was unable to sleep, started to have respiratory distress and came to the Emergency Room and was admitted for further evaluation. She underwent a CT on 12/02/2017. She underwent a CT of the chest which showed multiple pulmonary nodules considered for metastatic, otherwise proven as mediastinal adenopathy in the right hilar inferior region as well as right adrenal metastasis with hepatic metastases as well as small left adrenal metastasis and portal regional adenopathy encroaching the IVC. I am consulted for further evaluation and management. PAST MEDICAL HISTORY: Significant for COPD, hypertension, no candidiasis. PAST SURGICAL HISTORY: Appendectomy and hysterectomy. SOCIAL HISTORY: Does not drink, former smoker about 50 pack years, quit in 2017. No drug abuse. FAMILY HISTORY: Mother at age 87, cause cerebrovascular accident. Father at age 55, cause kidney failure. ALLERGIES: PENICILLIN, ACETAMINOPHEN, NYQUIL. MEDICATIONS: Albuterol sulfate, Symbicort, BuSpar, lactulose, Lopressor, and Lipitor. REVIEW OF SYSTEMS: CONSTITUTIONAL: No chills. No fatigue. No fever. No loss of appetite. No night sweats. No weakness. No weight loss. HEENT: No trouble swallowing. No loss of smell. No loss of hearing. No double vision. No pain. No discharge. ENT AND RESPIRATORY: No wheeze. No sore throat. No change in voice. No hearing loss. No nose bleed. No cough. No trouble breathing through nose. No coughing up blood. No epistaxis. Increasing shortness of breath. CARDIOVASCULAR: No chest pain. No dizziness. No irregular heartbeat. No leg edema. No pain in legs while walking. No palpitations. No shortness of breath. DERMATOLOGIC: No acne. No hives. No laceration. No mole. No rash. ENDOCRINE: No cold intolerance. No diabetes. No fatigue. No hot flashes. No polydipsia. No polyuria. No urinating frequently. No weight loss. HEMATOLOGIC AND LYMPH: No fatigue. No easy bruising. GASTROENTEROLOGIC: No change in bowel habits. No indigestion. No frequent bloating. No vomiting blood. No abdominal cramping. No nausea. No heartburn. No vomiting. No abdominal pain. No dysphagia. No diarrhea. No constipation. No blood in stool. [place], [place] REPORT OF CONSULTATION NAME: SARAHI NELSON UNIT #: [id number] ROOM: [facility] DOCTOR: REY KURTZ MD BIRTHDATE: [birth year] FEMALE REPRODUCTIVE: No vaginal itching. No difficulty urinating. No heavy periods. No dyspareunia. No sexually active. No dysmenorrhea. No pelvic pain. No breast pain. No nipple discharge. No abnormal vaginal discharge. No hot flashes. MUSCULOSKELETAL: No back pain. No muscle pain or weakness. No neck pain. No tingling/numbness. No swelling/bruising. No osteoporosis treatment. OPTHALMOLOGIC: No double vision. No diminished vision. No loss of vision. UROLOGIC: No dysuria. No frequent nighttime urination. No irregular periods. No pain with urination. No difficulty urinating. No blood in urine. No frequent urination. No urinary incontinence. NEUROLOGIC: No loss of sensation in specific body area. No vertigo. No burning pain in feet. No trouble with balance. No trouble with coordination. No loss of consciousness. No loss of feeling/power. No confusion. No headache. No tingling/numbness. PSYCHOLOGIC: No tinnitus. No headaches. No shortness of breath. No weight decrease. No nausea. No vomiting. No abdominal discomfort. No constipation. No diarrhea. No depression. No anxiety. PHYSICAL EXAMINATION: GENERAL: Pleasant woman in no apparent distress. VITAL SIGNS: Stable. She is afebrile. HEENT: Oral mucosa appears intact. The external ears are normal in appearance. Nares are patent without lesions, exudates, erythema, or inflammation. Tongue is symmetrical. Uvula is midline. NECK AND THYROID: Neck supple without palpable masses. Trachea is midline. No thyromegaly. No carotid bruit or JVD. BREASTS: Normal. Nipples unremarkable. No drainage. No lumps felt on either side. HEART: Normal S1, S2, without significant murmur, rub, or gallop. LUNGS: Clear to auscultation and percussion with good air entry bilaterally. The patient is breathing easily without the use of accessory muscles. Diaphragmatic excursions are intact. ABDOMEN: No costovertebral angle tenderness. Soft. No organomegaly or masses. Nontender. No hernias present. Liver and spleen are not palpable. LYMPHATIC: No adenopathy noted in the cervical, supraclavicular, axillary, or inguinal regions. NEUROLGIC: Nonfocal. Oriented to person, place, and time. MENTAL STATUS: Appropriate for mood and affect. PERIPHERAL PULSES: No varicosities. Femoral and pedal pulses are palpable. EXTREMITIES: Without cyanosis, clubbing, or edema. No gross anomalies. LABORATORY DATA: White count of 5.9, hemoglobin 10.3, hematocrit 32.1, platelet count of 344. Glucose of 144, BUN of 10, EGFR more than 60, sodium 137, potassium 4.8, chloride 101, bicarbonate 29, calcium 8.9. ASSESSMENT: 1. 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 2. Exacerbation of chronic obstructive pulmonary disease. 3. Possible sepsis. [place], [place] REPORT OF CONSULTATION NAME: SARAHI NELSON UNIT #: [id number] ROOM: [facility] DOCTOR: REY KURTZ MD BIRTHDATE: [birth year] 4. Normocytic anemia. PLAN: We will wait for Dr. Jolly for colonoscopy to further evaluate the cause for metastatic disease. If colonoscopy is negative, then we will need a CT-guided biopsy of the liver, depending upon that, further intervention. We will be also getting a CT of the abdomen and pelvis, had detailed discussion with the patient about it, seemed to understand it. Ample time was given to the patient to ask me questions and follow. Thanks for consulting and letting me participate in the care of this interesting patient. REY KURTZ MD CM:CONSTR:REPORT OF CONSULTATION 1135 12/04/17 0238 interface
--- NOTE | ~2017-12-02 | PR ---
[place], [place] PROGRESS NOTE NAME: SARAHI NELSON UNIT #: [id number] ROOM: 504 DOCTOR: JACK CALI MD,RAHEEL BIRTHDATE: [birth year] DOS: 12/05/2017 PULMONARY PROGRESS NOTE SUBJECTIVE: She has been comfortably resting on the bed at this time, seen and examined on 12/05/2017. She is n.p.o. past midnight for the patient, already had a prep completed for the patient for colonoscopy performed today. She denies any symptoms of wheezing or cough at the present time. OBJECTIVE: VITAL SIGNS: Shows normal temperature, respiratory rate 18, heart rate 94, blood pressure 138/87 this morning. Pulse oxygen saturation on 2 liters nasal cannula 100% saturation noted. HEENT: Examination shows head was atraumatic. Eyes: No icterus. NECK: Supple. CARDIOVASCULAR: S1, S2 was audible. LUNGS: The patient was noted without any wheeze or crackles at the present time. ABDOMEN: Soft, flat, nontender. Bowel sounds present. EXTREMITIES: Without any acute edema. IMPRESSION: 1. The patient with progressive resolution of the acute exacerbation of chronic obstructive pulmonary disease was noted. 2. Suspected malignancy. The patient metastasis to the lung originating from the GI tract. PLAN OF TREATMENT: Proceed with the assessment of the GI tract with the colonoscopy. Solu-Medrol will be decreased to 40 mg daily. All other supportive therapy, plan of management and other treatment will be continued without any changes. RAHEEL SANTIAGO MD CM:PNTRANS [phone] RAHEEL CALI MD 12/05/171950 interface
--- NOTE | ~2017-12-02 | PR ---
[place], [place] PROGRESS NOTE NAME: SARAHI NELSON UNIT #: [id number] ROOM: 504 DOCTOR: JACK CALI MD,RAHEEL BIRTHDATE: [birth year] DOS: 12/07/2017 SUBJECTIVE: The patient was noted comfortable at this time, resting, no abdominal pain. The respiratory symptoms have been improving progressively. Shortness of breath and the wheezing are resolving progressively. OBJECTIVE: VITAL SIGNS: For the patient, which was recorded showed the temperature noted as normal. The respiratory rate 20, heart rate 102, blood pressure 156/84. Pulse oxygen saturation 2 liters nasal cannula of 100% saturation. HEENT: Examination shows head was atraumatic. Eyes nonicterus. NECK: Supple. CARDIOVASCULAR: S1, S2 audible. LUNGS: Without any wheezing or crackles. ABDOMEN: Soft, nontender. IMPRESSION: The patient with a stable respiratory status was noted at the present time with resolving exacerbation of chronic obstructive pulmonary disease, suspected malignancy of metastasis in the liver and also in the lungs for this patient from the gastrointestinal tract. PLAN OF THERAPY: Continuation of the current plan of management at this time without any changes. All other supportive plan of management to be continued as well. Usual care. All other supportive plan of therapies. RAHEEL SANTIAGO MD CM:PNTRANS [phone] RAHEEL CALI MD 12/08/17 0027 interface
--- NOTE | ~2017-12-02 | PR ---
[place], [place] PROGRESS NOTE NAME: SARAHI NELSON UNIT #: [id number] ROOM: 504 DOCTOR: REY KURTZ MD BIRTHDATE: [birth year] DOS: 12/08/2017 SUBJECTIVE: The patient is doing better. She is awake, alert and responsive. PHYSICAL EXAMINATION: GENERAL: Pleasant woman in no apparent distress. VITAL SIGNS: Stable. HEENT: Normocephalic, atraumatic NECK AND THYROID: Supple. No JVD, thyromegaly, or lymphadenopathy. HEART: Normal S1, S2. Regular rate and rhythm. LUNGS: Clear to auscultation and percussion. ABDOMEN: Soft. Nontender, nondistended. Bowel sounds present. EXTREMITIES: Normal ROM. No clubbing. No edema. LABORATORY DATA: White count of 12.8, hemoglobin 10.2, hematocrit 30.5, platelet count of 269. CTA chest showed bilateral pulmonary artery and blood vessels embolism, multiple soft tissue nodules in the lung consistent with metastatic disease. Right hilar mass and adenopathy, extensive edema. CT of the chest showed multiple pulmonary nodules, mediastinal adenopathy in the right hilar inferior hilar region, right adrenal metastasis and hepatic metastasis. A small left renal metastasis, portal region adenopathy ASSESSMENT: 1. 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 2. Status post colonoscopy, biopsy is pending, though Dr. Jolly does not think colon is a primary since there are only 2 polyps. 3. Bilateral pulmonary embolism. 4. Chronic obstructive pulmonary disease exacerbation. 5. Anemia, probably iron deficiency. 6. Bilateral adrenal lesions, right more than left. PLAN: Dr. Jolly does not think that the tumor primary is colon. We are going to get a biopsy of the liver as well as the tumor markers depending on the further intervention. I had a detailed discussion with the patient about it and it was decided. Ample time was given to the patient for asking questions. [place], [place] PROGRESS NOTE NAME: SRAAHI NELSON UNIT #: [id number] ROOM: 504 DOCTOR: REY KURTZ MD BIRTHDATE: [birth year] REY KURTZ MD CM:ALPHONSO [phone] REY KURTZ MD 12/09/17 0152 interface
--- NOTE | ~2017-12-02 | PR ---
[place], [place] PROGRESS NOTE NAME: SARAHI NELSON UNIT #: [id number] ROOM: 504 DOCTOR: JACK CALI MD,RAHEEL BIRTHDATE: [birth year] DOS: 12/04/2017 SUBJECTIVE: She was comfortably resting at this time on the bed. The patient was not noted any symptoms of chest pain or any hemoptysis, abdominal pain and noted decreased shortness of breath and her respiratory symptoms has been subsiding. OBJECTIVE: VITAL SIGNS: For the patient, which has been recorded shows the temperature noted as normal. The respiratory rate recorded as 18, heart rate of 61-119, blood pressure 146/95 to 140/92. Pulse oxygen saturation on 2 liters nasal cannula 100% saturation recorded. HEENT: No acute change. NECK: Supple. CARDIOVASCULAR: S1, S2 audible. LUNGS: Occasional wheezing, no crackles. ABDOMEN: Soft, nontender. EXTREMITIES: Without any acute edema. IMPRESSION: 1. Resolving acute exacerbation of chronic obstructive pulmonary disease with acute bronchitis with improvement in wheezing, other symptoms has been continued. 2. 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 PLAN OF MANAGEMENT: Continuation of bronchodilators, oxygen supplementation. Decrease the Solu-Medrol 40 mg b.i.d. to 40 mg daily dosing. Continue the GI workup for the patient, did plan of colonoscopy tomorrow. The prep for this patient for the colonoscopy has been noted in progress. RAHEEL SANTIAGO MD CM:PNTRANS [id number] RAHEEL CALI MD 12/04/17 2350 interface
--- NOTE | ~2017-12-02 | PR ---
[place], [place] PROGRESS NOTE NAME: SARAHI NELSON UNIT #: [id number] ROOM: 504 DOCTOR: RAHEEL SANABRIA MD BIRTHDATE: [birth year] DOS: 12/10/2017 PULMONARY PROGRESS NOTE SUBJECTIVE: She has been noted comfortable at this time, free of any abdominal pain. There were symptoms of coughing, sputum expectoration, and chest pain. The patient was started on Lovenox subcutaneous yesterday, which has been tolerated. OBJECTIVE: VITAL SIGNS: Normal temperature, respiratory rate 22, heart rate 112, and blood pressure 126/80. The pulse oxygen saturation of the patient was noted as 96% on 2 liters cannula. HEENT: Examination shows head was atraumatic. Eyes nonicterus. NECK: Supple. CARDIOVASCULAR: S1, S2 audible. LUNGS: The patient was noted free of any wheezing or crackles. ABDOMEN: Noted soft. Bowel sounds were present. Nontender. EXTREMITIES: Without any acute edema. IMPRESSION: 1. The patient with bilateral pulmonary embolism with resolved acute exacerbation of chronic obstructive pulmonary disease progressively. 2. 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 PLAN OF THERAPY: No changes in the plan for this patient at this time except consideration for home discharge. Once the patient discharge, outpatient assessment with consideration of liver biopsy will be made. In the meantime, continue to remain on Lovenox. Outpatient therapy for the patient for the pulmonary embolism. She already completed the corticosteroid dose. Would not require any further dose of corticosteroids. The assessment and management was discussed with the patient and the primary care attending, Dr. Reddy, for discharge. [place], [place] PROGRESS NOTE NAME: SARAHI NELSON UNIT #: [id number] ROOM: 504 DOCTOR: RAHEEL SANABRIA MD BIRTHDATE: [birth year] RAHEEL SANTIAGO MD CM:PNTRANS [phone] RAHEEL CALI MD 12/11/17 0145 interface
--- NOTE | ~2017-12-02 | O ---
[place], [place] OPERATIVE NOTE NAME: SARAHI NELSON UNIT #: [id number] ROOM: 504 DOCTOR: COLLEEN HOLTABBY BIRTHDATE: [birth year] DOS: 12/05/2017 HISTORY OF PRESENT ILLNESS: This is a 72-year-old patient who presented with tiredness, shortness of breath and undergoing investigation. INDICATIONS: The patient was during the investigation suspected to have metastatic disease and we have been asked for assessment of the patient regarding screening colonoscopy to rule out source of primary site. Metastasis has been noticed in liver, adrenal gland and adenopathy in the mediastinum. The patient has been admitted also with exacerbation of shortness of breath that has been addressed. PAST SURGICAL HISTORY: Appendectomy and hysterectomy. SOCIAL HISTORY: Multi-decade smoker. FAMILY HISTORY: Noncontributory. ALLERGIES: ____ PENICILLIN. PAST MEDICAL HISTORY: Also shows COPD, hypertension, oral candidiasis. Medication list has been reviewed. Labs have been reviewed. Initial CBC with anemia, H and H of 10 and 32, and platelets of 365. Lactic acid, which has been normal. CT scan of the abdomen and pelvis, which has been reviewed. Multiple masses in the liver consistent with metastatic disease, aortic adenopathy, 6 cm mass in the adrenal gland consistent with metastasis, multiple lesions in the lungs as well. PROCEDURE: Today's procedure part of investigation is colonoscopy plus biopsy. PREMEDICATION: Versed and Diprivan. SCOPE: Olympus forward-viewing colonoscope 10L video. REPORT: After putting the patient in left lateral position and application of lubricant to rectal pouch and digital examination, scope was introduced. Thereafter, under direct visualization, advanced through the length of colon without difficulty. Multiple colonic polyps were identified. Neither one suspected to be the source for metastatic disease. Base of the cecum explored, appendiceal orifice identified, and ileocecal valve was defined. Scope was gradually withdrawn from ascending, transverse, and descending colon. The patient extubated. One of these polyps that the proximal sigmoid colon photographed and biopsied. IMPRESSION: Multiple colonic polyps, status post biopsy of one polyp at proximal sigmoid colon. Colon is not the primary source for metastasis. [place], [place] OPERATIVE NOTE NAME: SARAHI NELSON UNIT #: [id number] ROOM: 504 DOCTOR: ABBY MACIAS MD BIRTHDATE: [birth year] ABBY MACIAS MD CM:OPRECORD:OPERATIVE NOTE [phone] ABBY MACIAS MD 12/05/17 1534 interface
[~2017-12-02 05:19] MED LIST changes: -BUSPAR15 MG PO; -CONSTULOSE10 GM/151 PO; -INCRUSE ELLI62.5 MCG INH
[2017-12-02 05:57] LABS: BASO # 0.1 10*3/uL (0.0-0.1); BASO % 0.7 % (0.0-1.0); EOS # 0.4 10*3/uL (0.0-0.4); EOS % 4.2 % (1.0-4.0); HEMATOCRIT 32.7 % (37.0-47.0); HEMOGLOBIN 10.6 g/dl (12.0-16.0); LYMPH # 0.9 10*3/uL (1.3-4.4); LYMPH % 8.9 % (27.0-41.0); MEAN CELL VOLUME 89.6 fl (81.0-99.0); MEAN CORPUSCULAR HGB CONC 32.4 g/dl (33.0-37.0); MEAN PLATELET VOLUME 10.2 fl (9.6-12.3); MONO # 1.2 10*3/uL (0.1-1.0); MONO % 11.6 % (3.0-9.0); NEUT # 7.8 10*3/uL (2.3-7.9); NEUT % 74.3 % (47.0-73.0); PLATELET COUNT AUTOMATED 365 10*3/uL (130-400); RED BLOOD COUNT 3.65 10*6/uL (4.10-5.10); RED CELL DISTRI WIDTH 15.6 % (0-14.5); WHITE BLOOD COUNT 10.5 10*3/uL (4.8-10.8)
[2017-12-02 05:59] LABS: ABG BASE EXCESS 1.8 mmol/L (-2.0-2.0); ABG HCO3 27.5 mmol/l (22-26); ABG O2 SATURATION 99.4 % (95-97); ARTERIAL BLOOD GAS PCO2 48.4 mmHg (35-45); ARTERIAL BLOOD GAS PH 7.371 (7.35-7.45)
[2017-12-02 06:10] LABS: ALBUMIN 2.9 gm/dl (3.1-4.5); ALKALINE PHOSPHATASE 109 U/L (45-117); BUN 11 mg/dl (7-24); CHLORIDE 93 mmol/L (98-107); CREATININE 0.83 mg/dL (0.55-1.02); POTASSIUM 5.1 mmol/L (3.5-5.1); SGOT/AST 22 IU/L (3-35); SGPT/ALT 18 U/L (12-78); SODIUM 131 mmol/L (136-145); TOTAL PROTEIN 7.8 gm/dL (6.4-8.2)
[2017-12-02 06:12] LABS: ACT PARTIAL THROMBO TIME 25.1 SECONDS (20.8-31.5); TROPONIN I < 0.015 ng/ml (<0.045)
[2017-12-02] MEDS ORDERED: INCRUSE ELLI62.5 MCG INH (08:15)
[2017-12-02] MEDS ORDERED: BUSPAR15 MG PO (08:16)
[2017-12-02] MEDS ORDERED: CONSTULOSE10 GM/151 PO (08:19)
[2017-12-03] VITALS: BP 148/83
[2017-12-03 04:00] VITALS: BP 126/68
[2017-12-03 05:14] LABS: BUN 10 mg/dl (7-24); CHLORIDE 101 mmol/L (98-107); POTASSIUM 4.8 mmol/L (3.5-5.1); SODIUM 137 mmol/L (136-145)
[2017-12-03 05:19] LABS: CHOLESTEROL 185 mg/dL (<200); HDL CHOLESTEROL 73 mg/dl (40-60); LDL CHOLESTEROL 101 mg/dL (9-159); PHOSPHOROUS 2.6 mg/dL (2.5-4.9); TRIGLYCERIDES 56 mg/dl (<150); VLDL CHOLESTEROL 11 mg/dL (6-40)
[2017-12-03 05:25] LABS: PREALBUMIN 14 mg/dl (20-40)
[2017-12-03 05:57] LABS: BASO % 0.2 % (0.0-1.0); HEMATOCRIT 32.1 % (37.0-47.0); HEMOGLOBIN 10.3 g/dl (12.0-16.0); LYMPH # 0.3 10*3/uL (1.3-4.4); LYMPH % 5.6 % (27.0-41.0); MEAN CELL VOLUME 90.2 fl (81.0-99.0); MEAN CORPUSCULAR HGB 28.9 pg (27.0-31.0); MEAN CORPUSCULAR HGB CONC 32.1 g/dl (33.0-37.0); MEAN PLATELET VOLUME 10.7 fl (9.6-12.3); MONO # 0.2 10*3/uL (0.1-1.0); MONO % 3.4 % (3.0-9.0); NEUT # 5.3 10*3/uL (2.3-7.9); NEUT % 89.8 % (47.0-73.0); PLATELET COUNT AUTOMATED 344 10*3/uL (130-400); RED BLOOD COUNT 3.56 10*6/uL (4.10-5.10); RED CELL DISTRI WIDTH 15.5 % (0-14.5); WHITE BLOOD COUNT 5.9 10*3/uL (4.8-10.8)
[2017-12-03 08:00] VITALS: BP 160/76
[2017-12-03 08:08] LABS: VITAMIN D, 25-HYDROXY 26.9 ng/mL (30-100)
[2017-12-03] MEDS ORDERED: BUPROPION HCL150 M1 PO (11:52)
[2017-12-03 12:00] VITALS: BP 143/87
[2017-12-03 16:00] VITALS: BP 139/88
[2017-12-03 19:49] VITALS: BP 140/80
[2017-12-04 00:02] VITALS: BP 146/95
[2017-12-04 06:52] LABS: BASO % 0.1 % (0.0-1.0); HEMATOCRIT 34.7 % (37.0-47.0); HEMOGLOBIN 11.4 g/dl (12.0-16.0); LYMPH # 0.6 10*3/uL (1.3-4.4); LYMPH % 5.5 % (27.0-41.0); MEAN CELL VOLUME 88.3 fl (81.0-99.0); MEAN CORPUSCULAR HGB CONC 32.9 g/dl (33.0-37.0); MEAN PLATELET VOLUME 10.5 fl (9.6-12.3); MONO # 1.1 10*3/uL (0.1-1.0); MONO % 8.9 % (3.0-9.0); NEUT % 84.8 % (47.0-73.0); PLATELET COUNT AUTOMATED 391 10*3/uL (130-400); RED BLOOD COUNT 3.93 10*6/uL (4.10-5.10); RED CELL DISTRI WIDTH 15.6 % (0-14.5); WHITE BLOOD COUNT 11.7 10*3/uL (4.8-10.8)
[2017-12-04 07:37] LABS: BUN 11 mg/dl (7-24); CHLORIDE 95 mmol/L (98-107); CREATININE 0.85 mg/dL (0.55-1.02); FREE T4 1.08 ng/dl (0.76-1.46); POTASSIUM 4.5 mmol/L (3.5-5.1); SODIUM 134 mmol/L (136-145)
[2017-12-04 08:00] VITALS: BP 140/92
[2017-12-04 12:00] VITALS: BP 139/82
[2017-12-04 16:00] VITALS: BP 133/90
[2017-12-04 20:00] VITALS: BP 126/89
[2017-12-05] VITALS (8 sets, daily range): BP systolic 97–150; BP diastolic 54–87
[2017-12-05 06:46] LABS: BASO # 0.1 10*3/uL (0.0-0.1); BASO % 0.5 % (0.0-1.0); EOS # 0.1 10*3/uL (0.0-0.4); EOS % 0.5 % (1.0-4.0); HEMATOCRIT 35.1 % (37.0-47.0); HEMOGLOBIN 11.2 g/dl (12.0-16.0); LYMPH # 1.3 10*3/uL (1.3-4.4); LYMPH % 12.3 % (27.0-41.0); MEAN CELL VOLUME 90.5 fl (81.0-99.0); MEAN CORPUSCULAR HGB 28.9 pg (27.0-31.0); MEAN CORPUSCULAR HGB CONC 31.9 g/dl (33.0-37.0); MEAN PLATELET VOLUME 10.6 fl (9.6-12.3); MONO # 1.3 10*3/uL (0.1-1.0); MONO % 12.7 % (3.0-9.0); NEUT # 7.6 10*3/uL (2.3-7.9); PLATELET COUNT AUTOMATED 368 10*3/uL (130-400); RED BLOOD COUNT 3.88 10*6/uL (4.10-5.10); RED CELL DISTRI WIDTH 15.8 % (0-14.5); WHITE BLOOD COUNT 10.4 10*3/uL (4.8-10.8)
[2017-12-05 07:15] LABS: ALBUMIN 2.7 gm/dl (3.1-4.5); ALKALINE PHOSPHATASE 94 U/L (45-117); BUN 10 mg/dl (7-24); CHLORIDE 97 mmol/L (98-107); CREATININE 0.81 mg/dL (0.55-1.02); SGOT/AST 23 IU/L (3-35); SGPT/ALT 18 U/L (12-78); SODIUM 135 mmol/L (136-145); TOTAL PROTEIN 6.9 gm/dL (6.4-8.2)
[2017-12-05 07:19] LABS: POTASSIUM 3.2 mmol/L (3.5-5.1)
[2017-12-06] VITALS: BP 144/83
[2017-12-06 06:05] LABS: BASO % 0.1 % (0.0-1.0); EOS % 0.1 % (1.0-4.0); HEMATOCRIT 30.9 % (37.0-47.0); LYMPH # 0.8 10*3/uL (1.3-4.4); LYMPH % 7.7 % (27.0-41.0); MEAN CELL VOLUME 90.6 fl (81.0-99.0); MEAN CORPUSCULAR HGB 29.3 pg (27.0-31.0); MEAN CORPUSCULAR HGB CONC 32.4 g/dl (33.0-37.0); MEAN PLATELET VOLUME 10.6 fl (9.6-12.3); MONO % 10.1 % (3.0-9.0); NEUT % 81.6 % (47.0-73.0); PLATELET COUNT AUTOMATED 302 10*3/uL (130-400); RED BLOOD COUNT 3.41 10*6/uL (4.10-5.10); RED CELL DISTRI WIDTH 15.7 % (0-14.5); WHITE BLOOD COUNT 9.7 10*3/uL (4.8-10.8)
[2017-12-06 06:20] LABS: ALBUMIN 2.4 gm/dl (3.1-4.5); ALKALINE PHOSPHATASE 83 U/L (45-117); BUN 15 mg/dl (7-24); CHLORIDE 102 mmol/L (98-107); CREATININE 0.73 mg/dL (0.55-1.02); PHOSPHOROUS 2.1 mg/dL (2.5-4.9); POTASSIUM 3.6 mmol/L (3.5-5.1); SGOT/AST 15 IU/L (3-35); SGPT/ALT 16 U/L (12-78); SODIUM 138 mmol/L (136-145); TOTAL PROTEIN 6.1 gm/dL (6.4-8.2)
[2017-12-06 08:00] VITALS: BP 146/74
[2017-12-06 12:00] VITALS: BP 138/86
[2017-12-06 14:46] LABS: ACT PARTIAL THROMBO TIME 19.4 SECONDS (20.8-31.5)
[2017-12-06 16:00] VITALS: BP 153/87
[2017-12-06 20:06] VITALS: BP 158/77
[2017-12-07] VITALS: BP 155/83
[2017-12-07 06:14] LABS: BASO % 0.3 % (0.0-1.0); EOS % 0.2 % (1.0-4.0); HEMATOCRIT 33.5 % (37.0-47.0); HEMOGLOBIN 10.7 g/dl (12.0-16.0); LYMPH # 1.3 10*3/uL (1.3-4.4); LYMPH % 11.3 % (27.0-41.0); MEAN CELL VOLUME 89.8 fl (81.0-99.0); MEAN CORPUSCULAR HGB 28.7 pg (27.0-31.0); MEAN CORPUSCULAR HGB CONC 31.9 g/dl (33.0-37.0); MEAN PLATELET VOLUME 10.5 fl (9.6-12.3); MONO # 1.2 10*3/uL (0.1-1.0); MONO % 10.1 % (3.0-9.0); NEUT # 8.9 10*3/uL (2.3-7.9); NEUT % 77.4 % (47.0-73.0); PLATELET COUNT AUTOMATED 292 10*3/uL (130-400); RED BLOOD COUNT 3.73 10*6/uL (4.10-5.10); RED CELL DISTRI WIDTH 15.7 % (0-14.5); WHITE BLOOD COUNT 11.4 10*3/uL (4.8-10.8)
[2017-12-07 06:18] LABS: ALBUMIN 2.7 gm/dl (3.1-4.5); ALKALINE PHOSPHATASE 85 U/L (45-117); BUN 11 mg/dl (7-24); CHLORIDE 100 mmol/L (98-107); CREATININE 0.66 mg/dL (0.55-1.02); PHOSPHOROUS 2.1 mg/dL (2.5-4.9); POTASSIUM 3.6 mmol/L (3.5-5.1); SGOT/AST 19 IU/L (3-35); SGPT/ALT 19 U/L (12-78); SODIUM 136 mmol/L (136-145); TOTAL PROTEIN 6.7 gm/dL (6.4-8.2)
[2017-12-07 08:00] VITALS: BP 156/84
[2017-12-07 12:00] VITALS: BP 133/83
[2017-12-07 16:00] VITALS: BP 163/81
[2017-12-07 20:00] VITALS: BP 135/82
[2017-12-08] VITALS: BP 154/78
[2017-12-08 06:22] LABS: HEMATOCRIT 30.5 % (37.0-47.0); HEMOGLOBIN 10.2 g/dl (12.0-16.0); MEAN CELL VOLUME 89.2 fl (81.0-99.0); MEAN CORPUSCULAR HGB 29.8 pg (27.0-31.0); MEAN CORPUSCULAR HGB CONC 33.4 g/dl (33.0-37.0); MEAN PLATELET VOLUME 11.1 fl (9.6-12.3); PLATELET COUNT AUTOMATED 269 10*3/uL (130-400); RED BLOOD COUNT 3.42 10*6/uL (4.10-5.10); RED CELL DISTRI WIDTH 15.9 % (0-14.5); WHITE BLOOD COUNT 12.8 10*3/uL (4.8-10.8)
[2017-12-08 06:39] LABS: ALBUMIN 2.5 gm/dl (3.1-4.5); BUN 15 mg/dl (7-24); CHLORIDE 102 mmol/L (98-107); POTASSIUM 4.1 mmol/L (3.5-5.1); SODIUM 137 mmol/L (136-145)
[2017-12-08 06:43] LABS: ALKALINE PHOSPHATASE 77 U/L (45-117); CREATININE 0.72 mg/dL (0.55-1.02); PHOSPHOROUS 2.6 mg/dL (2.5-4.9); SGOT/AST 27 IU/L (3-35); SGPT/ALT 20 U/L (12-78); TOTAL PROTEIN 6.2 gm/dL (6.4-8.2)
[2017-12-08 07:11] LABS: PLATELET SUFFICIENCY NORMAL (NORMAL); TOTAL CELLS COUNTED 100 #CELLS
[2017-12-08 08:00] VITALS: BP 135/58
[2017-12-08 12:00] VITALS: BP 138/66
[2017-12-08 16:00] VITALS: BP 137/75
[2017-12-08 20:00] VITALS: BP 149/74
[2017-12-09] VITALS: BP 159/96
[2017-12-09 07:52] LABS: CEA 4231.2 ng/mL
[2017-12-09 08:00] VITALS: BP 137/73
[2017-12-09 10:11] LABS: FERRITIN 428.5 ng/mL (10.0-291.0)
[2017-12-09 12:00] VITALS: BP 156/82
[2017-12-09 15:58] VITALS: BP 153/68
[2017-12-09 16:00] VITALS: BP 149/78
[2017-12-09 20:00] VITALS: BP 119/54
[2017-12-10] VITALS: BP 125/64
[2017-12-10 05:57] LABS: BASO % 0.4 % (0.0-1.0); EOS # 0.2 10*3/uL (0.0-0.4); EOS % 1.5 % (1.0-4.0); HEMATOCRIT 29.5 % (37.0-47.0); HEMOGLOBIN 9.4 g/dl (12.0-16.0); LYMPH # 1.6 10*3/uL (1.3-4.4); LYMPH % 14.9 % (27.0-41.0); MEAN CORPUSCULAR HGB CONC 31.9 g/dl (33.0-37.0); MEAN PLATELET VOLUME 10.4 fl (9.6-12.3); MONO # 1.4 10*3/uL (0.1-1.0); MONO % 13.1 % (3.0-9.0); NEUT # 7.2 10*3/uL (2.3-7.9); NEUT % 69.4 % (47.0-73.0); PLATELET COUNT AUTOMATED 265 10*3/uL (130-400); RED BLOOD COUNT 3.24 10*6/uL (4.10-5.10); RED CELL DISTRI WIDTH 16.1 % (0-14.5); WHITE BLOOD COUNT 10.4 10*3/uL (4.8-10.8)
[2017-12-10 06:36] LABS: ALBUMIN 2.5 gm/dl (3.1-4.5); ALKALINE PHOSPHATASE 70 U/L (45-117); BUN 15 mg/dl (7-24); CHLORIDE 101 mmol/L (98-107); CREATININE 0.65 mg/dL (0.55-1.02); POTASSIUM 3.4 mmol/L (3.5-5.1); SGOT/AST 22 IU/L (3-35); SGPT/ALT 20 U/L (12-78); SODIUM 138 mmol/L (136-145)
[2017-12-10 08:00] VITALS: BP 126/80
[2017-12-10 08:09] LABS: CA 15-3 143404 707.8 U/mL (0.0-25.0)
[2017-12-10 12:00] VITALS: BP 132/84
[2017-12-10 16:00] VITALS: BP 143/67
[2017-12-10 20:00] VITALS: BP 127/52
[2017-12-11] VITALS: BP 151/70
[2017-12-11 06:37] LABS: HEMATOCRIT 28.5 % (37.0-47.0); HEMOGLOBIN 9.2 g/dl (12.0-16.0); MEAN CELL VOLUME 91.9 fl (81.0-99.0); MEAN CORPUSCULAR HGB 29.7 pg (27.0-31.0); MEAN CORPUSCULAR HGB CONC 32.3 g/dl (33.0-37.0); MEAN PLATELET VOLUME 11.5 fl (9.6-12.3); PLATELET COUNT AUTOMATED 245 10*3/uL (130-400); RED CELL DISTRI WIDTH 16.3 % (0-14.5); WHITE BLOOD COUNT 13.1 10*3/uL (4.8-10.8)
[2017-12-11 07:05] LABS: TOTAL CELLS COUNTED 100 #CELLS
[2017-12-11 07:06] LABS: PLATELET SUFFICIENCY NORMAL (NORMAL); POLYCHROMASIA SLIGHT
[2017-12-11 07:18] LABS: CHLORIDE 103 mmol/L (98-107); SODIUM 138 mmol/L (136-145)
[2017-12-11 07:36] LABS: ALBUMIN 2.5 gm/dl (3.1-4.5); BUN 15 mg/dl (7-24); CREATININE 0.71 mg/dL (0.55-1.02); SGOT/AST 23 IU/L (3-35); SGPT/ALT 21 U/L (12-78); TOTAL PROTEIN 6.1 gm/dL (6.4-8.2)
[2017-12-11 08:00] VITALS: BP 158/72
[2017-12-11 08:05] LABS: ALKALINE PHOSPHATASE 70 U/L (45-117); POTASSIUM 4.5 mmol/L (3.5-5.1)
[2017-12-11] MEDS ORDERED: ENOXAPARIN80 MG/0.2 SC (11:06)
[2017-12-11] MEDS ORDERED: VITAMIN D-32000 UNIT PO (11:06)
[2017-12-11] MEDS ORDERED: MUCINEX ER600 MG PO (11:06)
[2017-12-11] MEDS ORDERED: BUSPAR15 MG PO (11:11)
[2017-12-11] MEDS ORDERED: NORCO 5-325 TA1 EACH PO (11:44)
[2017-12-11 12:00] VITALS: BP 154/82
== END 2017-12-11 17:08 | disposition home or self-care (01) | DRG 871 ==
LOC: ED 05:19 → ICCU 06:20 → 5E 06:20 → EDHOLD 06:20 → ICCU 06:35 → 5E 12-03 11:11
PROVIDERS: Family Medicine; Internal Medicine; Internal Medicine Critical Care Medicine; Internal Medicine Hematology & Oncology; Student in an Organized Health Care Education/Training Program
PROC: 0DBN8ZZ Excision of Sigmoid Colon, Via Natural or Artificial Opening Endoscopic (ICD-10-PCS; principal; 2017-12-05)
PROC: 0FB13ZX Excision of Right Lobe Liver, Percutaneous Approach, Diagnostic (ICD-10-PCS; 2017-12-09)
DX: A41.9 Sepsis, unspecified organism (principal); J18.9 Pneumonia, unspecified organism; I26.99 Other pulmonary embolism without acute cor pulmonale; J96.21 Acute and chronic respiratory failure with hypoxia; E44.0 Moderate protein-calorie malnutrition; C78.7 Secondary malignant neoplasm of liver and intrahepatic bile duct; C79.70 Secondary malignant neoplasm of unspecified adrenal gland; C78.1 Secondary malignant neoplasm of mediastinum; C26.9 Malignant neoplasm of ill-defined sites within the digestive system; D63.0 Anemia in neoplastic disease; C34.90 Malignant neoplasm of unspecified part of unspecified bronchus or lung; J44.1 Chronic obstructive pulmonary disease with (acute) exacerbation; E87.1 Hypo-osmolality and hyponatremia; J44.0 Chronic obstructive pulmonary disease with (acute) lower respiratory infection; K62.1 Rectal polyp; R65.20 Severe sepsis without septic shock; I87.2 Venous insufficiency (chronic) (peripheral); K76.9 Liver disease, unspecified; E27.9 Disorder of adrenal gland, unspecified; F17.200 Nicotine dependence, unspecified, uncomplicated; D72.810 Lymphocytopenia; K63.5 Polyp of colon; J20.9 Acute bronchitis, unspecified; R91.1 Solitary pulmonary nodule; K59.00 Constipation, unspecified; Z90.49 Acquired absence of other specified parts of digestive tract; Z90.710 Acquired absence of both cervix and uterus; Z88.0 Allergy status to penicillin; Z88.1 Allergy status to other antibiotic agents; Z84.1 Family history of disorders of kidney and ureter; Z82.3 Family history of stroke; Z68.26 Body mass index [BMI] 26.0-26.9, adult

== ENCOUNTER 2017-12-13 11:47 | Inpatient (IN) | payer OTHER, MEDICAID ==
[2017-12-13] VITALS (7 sets, daily range): BP systolic 124–134; BP diastolic 59–78
[~2017-12-13] VITALS: Ht 167.6 cm; Wt 78.3 kg
--- NOTE | ~2017-12-13 | PR ---
[place], [place] PROGRESS NOTE NAME: SARAHI NELSON UNIT #: [id number] ROOM: 520 DOCTOR: REY KURTZ MD BIRTHDATE: [birth year] DOS: 12/16/2017 SUBJECTIVE: The patient is doing better. PHYSICAL EXAMINATION VITALS SIGNS: Stable. HEENT: Normocephalic, atraumatic. NECK AND THYROID: Supple. No JVD, thyromegaly, or lymphadenopathy. HEART: Normal S1, S2. Regular rate and rhythm. LUNGS: Clear to auscultation and percussion. ABDOMEN: Soft. Nontender, nondistended. Bowel sounds present. EXTREMITIES: Normal ROM. No clubbing. No edema. LABORATORY DATA: White count of 17.4, hemoglobin 8.4, hematocrit 26.5, platelet count of 241. ASSESSMENT: 1. Metastatic carcinoma of unknown primary. 2. Leukocytosis, reactive. 3. Anemia of neoplastic disorder. 4. Chronic obstructive pulmonary disease. 5. Pneumonia. PLAN: We will wait for the final report to come back. Depending upon that decision about further treatment will be made. Ample time was given to the patient to ask me questions. ERY KURTZ MD CM:ALPHONSO [phone] REY KURTZ MD 12/17/17 0111 interface
--- NOTE | ~2017-12-13 | PR ---
[place], [place] PROGRESS NOTE NAME: SARAHI NELSON UNIT #: [id number] ROOM: 520 DOCTOR: JACK CALI MD,RAHEEL BIRTHDATE: [birth year] DOS: 12/17/2017 SUBJECTIVE: She has been noted comfortable at this time, shows continued gradual reduction and improvement in the respiratory symptom. The patient has not noted any symptoms of hemoptysis. Cough has been improving gradually. OBJECTIVE: VITAL SIGNS: For the patient which has been recorded shows the temperature noted as normal. The respiratory rate of the patient recorded as 20. Heart rate of 103, blood pressure 148/84. Pulse oxygen saturation of the patient was noted as 100 on 2 liter nasal cannula. HEENT: Shows head was atraumatic. Eyes nonicterus. NECK: Supple. CARDIOVASCULAR: S1, S2 is audible. LUNGS: The patient was noted without any wheeze. HEENT: No acute change. CARDIOVASCULAR: S1, S2 without any added sounds. LUNGS: Noted. Scattered wheezing. No crackles. ABDOMEN: Soft, nontender. Bowel sounds present. EXTREMITIES: The patient was noted without any acute edema. IMPRESSION: 1. The patient has been currently noted with an ongoing acute exacerbation of chronic obstructive pulmonary disease, acute tracheobronchitis and/or debility. 2. The patient with current metastatic cancer. The exact origin for the patient was unknown. Suspicion of her breasts ____ was reported. There was no lung masses noted explaining the current metastatic malignancy. PLAN OF TREATMENT: Continue followup by the Medical Oncology for the patient for the malignancy. Continuation of bronchodilators, oxygen supplementation. Other therapy, plan of management and care plan. Usual treatment. Additional treatment changes to be made based on progression of the illness. RAHEEL SANTIAGO MD CM:PNTRANS [id number] RAHEEL CALI MD 12/17/17 1731 interface
--- NOTE | ~2017-12-13 | PR ---
[place], [place] PROGRESS NOTE NAME: SARAHI NELSON UNIT #: [id number] ROOM: 520 DOCTOR: REY KURTZ MD BIRTHDATE: [birth year] DOS: 12/15/2017 SUBJECTIVE: The patient is doing better, though she has shortness of breath and says that heart rate is high. REVIEW OF SYSTEMS HEENT: No trouble swallowing. No double vision. No loss of vision. No pain. ENT AND RESPIRATORY: No wheeze. No change in voice. No cough. Increasing shortness of breath. No coughing up blood. No epistaxis. CARDIOLOGIC: No chest pain. No dizziness. No irregular heartbeat. No leg edema. No palpitations. No shortness of breath. HEMATOLOGIC AND LYMPH: No past transfusion. No fatigue. No loss of appetite. No easy bruising. GASTROENEROLOGIC: No change in bowel habits. No vomiting blood. No abdominal cramping. No nausea. No vomiting. No diarrhea. No constipation. No blood in stool. FEMALE REPRODUCTIVE: No dyspareunia. No pelvic pain. MUSCULOSKELETAL: No back pain. No muscle pain or weakness. No tingling/numbness. UROLOGIC: No pain with urination. No difficulty urinating. No frequent urination. NEUROLOGIC: No burning pain in feet. No trouble with coordination. No loss of consciousness. No headache. No tingling/numbness. No memory loss. PHYSICAL EXAMINATION: GENERAL: She is a pleasant woman in no apparent distress. VITAL SIGNS: Stable. She is afebrile. HEENT: Normocephalic, atraumatic NECK AND THYROID: Supple. No JVD, thyromegaly, or lymphadenopathy. HEART: Normal S1, S2. Regular rate and rhythm. LUNGS: Clear to auscultation and percussion. Bilateral expiratory wheeze. ABDOMEN: Soft. Nontender, nondistended. Bowel sounds present. EXTREMITIES: Normal ROM. No clubbing. No edema. LABORATORY DATA: Sodium 135, potassium 4.0, chloride 98, bicarbonate 29, EGFR is more than 60. White count of 15.7, hemoglobin 8.8, hematocrit 27.1, platelet count 217. PATHOLOGY. CT-guided biopsy of the liver shows poorly differentiated carcinoma. It has been sent to [facility] for further classifying the tissue of origin. IHC stains, gaines-keratin. Biopsies of polyp, showed fragments of tubular adenoma. ASSESSMENT: 1. 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 2. Leukocytosis, reactive. 3. Anemia of neoplastic disorder. 4. Chronic obstructive pulmonary disease exacerbation. 4. History of pneumonitis. [place], [place] PROGRESS NOTE NAME: SARAHI NELSON UNIT #: [id number] ROOM: 520 DOCTOR: REY KURTZ MD BIRTHDATE: [birth year] PLAN: We will wait for the final to identify the source of origin of the tumor. In addition, the patient is going to [facility]. We will just follow up here if patient continues to take some broad spectrum antibiotics etc. Depending upon the final report for further intervention. I had a detailed discussion with the patient about it, seemed to understand. Ample time was given to the patient to ask me questions. We will be also keep a close watch on her hemoglobin, hematocrit and white count. REY KURTZ MD CM:PNTRANS [id number] REY KURTZ MD 12/15/17 3746 interface
--- NOTE | ~2017-12-13 | EKG ---
[place], [place] ELECTROCARDIOGRAM REPORT NAME: SARAHI NELSON UNIT #: [id number] ROOM: 520 DOCTOR: JACK CALI MD,RAHEEL BIRTHDATE: [birth year] DOS: 12/13/2017 ELECTROCARDIOGRAM TIME: 12:05 p.m. Sinus tachycardia noted, heart rate 106 beats per minute. There were no acute changes of ischemia or other abnormalities. RAHEEL SANTIAGO MD CM:EKGRPT:ELECTROCARDIOGRAM REPORT [id number] RAHEEL CALI MD
--- NOTE | ~2017-12-13 | PR ---
[place], [place] PROGRESS NOTE NAME: SARAHI NELSON UNIT #: [id number] ROOM: 520 DOCTOR: RAHEEL SANABRIA MD BIRTHDATE: [birth year] DOS: 12/16/2017 SUBJECTIVE: The patient was noted comfortable at this time. Coughing, shortness breath was noted partially decreased. There were no symptoms of chest pain or abdominal pain, reported by the patient. The patient denies symptoms of edema or pain of the lower extremities. OBJECTIVE: VITAL SIGNS: Normal temperature, respiratory rate 20, heart rate 100, blood pressure 158/56. Pulse oxygen saturation on 2 liters nasal cannula 98% saturation. HEENT: Showed no acute change. NECK: Supple. CARDIOVASCULAR: S1, S2 audible. LUNGS: Noted without any crackles, mild expiratory wheezing noted bilaterally for the patient with decreased breath sounds. ABDOMEN: Soft, nontender. EXTREMITIES: Without any acute edema. LABORATORY DATA: Lab results, biopsy of the liver was reported as a tumor regeneration. The patient was suggested either from the breast or the lungs. IMPRESSION: 1. The patient metastatic cancer, exactly primary patient. There were no large mass lesion noted in the lung. Only small nodule was noted. The patient would now be considered primary malignancy, most likely secondary lesions would be considered. 2. Resolving acute exacerbation of chronic obstructive pulmonary disease progressively with improving overall debility. PLAN OF TREATMENT: Plan of therapy, no changes in the plan of management at this time. Continuation of other plan of therapy as in progress. Usual care. Awaiting for assessment and the authorization for the LTAC facility. [place], [place] PROGRESS NOTE NAME: MARIA LUISA NELSONNICK Gray UNIT #: [id number] ROOM: 520 DOCTOR: RAHEEL SANABRIA MD BIRTHDATE: [birth year] RAHEEL SANTIAGO MD CM:PNTRANS [phone] RAHEEL CALI MD 12/16/17 2242 interface
--- NOTE | ~2017-12-13 | PR ---
[place], [place] PROGRESS NOTE NAME: SARAHI NELSON UNIT #: [id number] ROOM: 520 DOCTOR: REY KURTZ MD BIRTHDATE: [birth year] DOS: 12/17/2017 SUBJECTIVE: The patient is doing better. She could not go to the [facility]. The patient is going to home. REVIEW OF SYSTEMS: HEENT: No trouble swallowing. No double vision. No loss of vision. No pain. ENT AND RESPIRATORY: No wheeze. No change in voice. No cough. No shortness of breath. No coughing up blood. No epistaxis. CARDIOLOGIC: No chest pain. No dizziness. No irregular heartbeat. No leg edema. No palpitations. No shortness of breath. HEMATOLOGIC AND LYMPH: No past transfusion. No fatigue. No loss of appetite. No easy bruising. GASTROENTEROLOGIC: No change in bowel habits. No vomiting blood. No abdominal cramping. No nausea. No vomiting. No diarrhea. No constipation. No blood in stool. FEMALE REPRODUCTIVE: No dyspareunia. No pelvic pain. MUSCULOSKELETAL: No back pain. No muscle pain or weakness. No tingling/numbness. UROLOGIC: No pain with urination. No difficulty urinating. No frequent urination. NEUROLOGIC: No burning pain in feet. No trouble with coordination. No loss of consciousness. No headache. No tingling/numbness. No memory loss. PHYSICAL EXAMINATION: GENERAL: She is a pleasant woman in no apparent distress. VITAL SIGNS: Stable. She is afebrile. HEENT: Normocephalic, atraumatic. NECK AND THYROID: Supple. No JVD, thyromegaly, or lymphadenopathy. HEART: Normal S1, S2. Regular rate and rhythm. LUNGS: Clear to auscultation and percussion. ABDOMEN: Soft. Nontender, nondistended. Bowel sounds present. EXTREMITIES: Normal ROM. No clubbing. No edema. LABORATORY DATA: White count of 11.2, hemoglobin of 9.1, and hematocrit 28.4, MCV 90.7, before it was under 104.7 on 08/12/2012; and platelets of 293. ASSESSMENT: 1. Metastatic cancer of unknown primary, probably breast primary versus lung. 2. Anemia, probably of neoplastic disorder. 3. Macrocytosis. PLAN: She will be getting a mammogram. In addition, I talked to Dr. Henson, if HER-2/aissatou positive marker can be done. He told me that the specimen may not be suitable for HER-2/aissatou and advised to get another biopsy for HER-2/aissatou. Subsequently, I will talk to the patient on discharge. [place], [place] PROGRESS NOTE NAME: SARAHI NELSON UNIT #: [id number] ROOM: [facility] DOCTOR: REY KURTZ MD BIRTHDATE: [birth year] REY KURTZ MD CM:PNTRANS [phone] REY KURTZ MD 12/18/17 0301 interface
--- NOTE | ~2017-12-13 | PR ---
[place], [place] PROGRESS NOTE NAME: SARAHI NELSON UNIT #: [id number] ROOM: 520 DOCTOR: JACK CALI MD,RAHEEL BIRTHDATE: [birth year] DOS: 12/15/2017 SUBJECTIVE: She was noted with coughing. The patient's shortness of breath has been noted partially decreased. Denies symptoms of chest pain or hemoptysis. Denies symptoms of nausea, vomiting, diarrhea or any abdominal pain. She was continued on corticosteroids, bronchodilators, and other medical management including antibiotics. She was noted with general weakness and fatigue. OBJECTIVE: VITAL SIGNS: For the patient this morning, normal temperature, respiratory rate 20, heart rate 120, blood pressure 125/59. Pulse oxygen saturation on 2 L nasal cannula is 96% saturation. HEENT: Shows head was atraumatic. Eyes nonicterus. NECK: Supple. CARDIOVASCULAR: S1, S2 is audible. LUNGS: The patient was noted without any wheezing. Crackles was noted absent. ABDOMEN: Soft, nontender. EXTREMITIES: The patient was noted without any acute edema. IMPRESSION: 1. The patient with metastatic malignancy, pending further identification with genomic testing. 2. The patient with improving acute exacerbation of chronic obstructive pulmonary disease as well as acute tracheobronchitis. PLAN OF MANAGEMENT: No changes in the plan of therapy at this time. Continue current plan of management and other plan of care. Monitor results of the biopsy of the liver. Supportive care. RAHEEL SANTIAGO MD CM:PNTRANS [phone] RAHEEL CALI MD 12/16/17 0151 interface
--- NOTE | ~2017-12-13 | CON ---
[place], [place] REPORT OF CONSULTATION NAME: SARAHI NELSON UNIT #: [id number] ROOM: 520 DOCTOR: JACK CALI MDRAHEEL BIRTHDATE: [birth year] DOS: 12/14/2017 PULMONARY CONSULTATION EVALUATION REASON FOR CONSULTATION: To assess the patient for the recurrence of acute respiratory symptom. HISTORY OF PRESENT ILLNESS: This is a 72-year-old white female very well known to me. The patient has been recently hospitalized in this hospital from the date of 12/02/2017 and discharged on 12/11/2017. The patient is in stable condition with resolved exacerbation of COPD, also noted with a malignancy, which was noted with enlargement of the adrenal gland and hepatic metastasis. The patient was also noted pulmonary nodules. She was discharged home and was readmitted to the hospital on 12/13/2017 as the patient reported with symptoms of having increased chest congestion and coughing. The patient does not have any sputum expectoration. The patient was noted with symptoms of increased wheezing as well. The patient denies symptoms of hemoptysis. She does not have symptoms of fever or chills. She had been readmitted to the hospital and started on intravenous antibiotics. She was also noted progressive increased confusional status on the day of the admission as reported by the daughter. Currently, the patient has been noted comfortably, sitting on the bed, still noted chest congestion, coughing without any sputum expectoration, and complaining of wheezing as well with the tightness in the chest. She denies symptoms of hemoptysis. REVIEW OF SYSTEMS: CONSTITUTIONAL SYMPTOMS: There were no symptoms of fever or chills reported. The appetite was noted decreased. EYES: Denies any burning, redness, or tenderness. EARS, NOSE, AND THROAT SYMPTOMS: No sore throat, hoarseness, otalgia, postnasal drainage, or epistaxis. CARDIOVASCULAR SYSTEM: Denies anginal pain, edema, or pain in lower extremities. GASTROINTESTINAL SYMPTOMS: No dysphagia, nausea, vomiting, diarrhea, abdominal pain, hematemesis, melena, or hematochezia at the present time. GENITOURINARY SYMPTOMS: No dysuria, suprapubic pain, urinary incontinence, or hesitancy. MUSCULOSKELETAL SYMPTOMS: There were no acute joint pain reported. There were no symptoms of redness of any joints stated. CENTRAL NERVOUS SYSTEM: The patient was noted with symptoms of dizziness and lightheadedness on admission as well. There were no symptoms of seizures. General weakness and fatigue was reported. Remaining systems were reviewed with the patient and they were noted all negative. PAST MEDICAL HISTORY: Noted with: 1. History of advanced COPD, stage 4, FEV1 of 28%. 2. Chronic hypoxic respiratory failure, use of oxygen 2 liter nasal cannula. 3. Essential hypertension. 4. 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 The origination of the tumor was not known; however, the elevation in the CEA level noted severe suggestive of GI malignancy, mets to the liver and to the lungs. Final report for the patient, offer consultation from the [facility] was pending. 5. The patient was noted with pulmonary embolism during her admission in 11/2017, which has been treated with anticoagulation. PAST SURGICAL HISTORY: The patient has: 1. Appendectomy. 2. Hysterectomy. 3. Colonoscopy. 4. CT-guided needle aspirate biopsy done on 12/10/2017. SOCIAL HISTORY: The patient lives at home, , and has 2 children. Denies history of alcohol or illicit drug use. Tobacco use noted from age of [id number], pack of cigarettes per day until 08/2017. FAMILY HISTORY: The patient's father at age of [id number] from complication related to the renal failure. Mother at age of 8690-[id number]-pbb from an acute stroke. DRUG ALLERGIES: NOTED ALLERGY: 1. NYQUIL. 2. PENICILLIN. MEDICATIONS: Current medications administered noted as use of vitamin D, Lovenox 80 mg subq b.i.d., metoprolol tartrate, Mucinex, Solu-Medrol 60 mg q.8 hours, Dulera 200/5, Levaquin, and other p.r.n. medication administration. PHYSICAL EXAMINATION: GENERAL: A 72-year-old female patient who has been noted currently comfortable, resting in the bed. Height of 5 feet 6 inches, weight of 72 pounds with a moderate cough, chest congestion, no sputum expectoration. BMI 27.8. VITAL SIGNS: The patient showed normal temperature, respiratory 19-20, heart rate of 160-87, and blood pressure 136/77-125/59. Pulse oxygen saturation noted on 2 liters nasal cannula is 97% saturation. HEENT: Examination shows head was atraumatic. Eyes nonicterus. NECK: Supple. CARDIOVASCULAR: S1, S2 audible. LUNGS: Shows loed-bi-[id number] expiratory wheezing noted, new onset since discharge from the hospital. There were no crackles heard. ABDOMEN: Soft, flat, and nontender. Bowel sounds present without any tenderness. EXTREMITIES: Without any edema, clubbing, or cyanosis. SKIN: No lesions or rashes. MUSCULOSKELETAL: Without any acute deformities. LABORATORY DATA: PT/PTT for the patient that were done 3 sets were noted normal PT and PTT. CBC of the patient of 12/13/2017 noted WBC count 17.7, hemoglobin 9.8, hematocrit 30.5, and platelet count 160, 000, 90% segmented neutrophils. [place], [place] REPORT OF CONSULTATION NAME: SARAHI NELSON UNIT #: [id number] ROOM: [facility] [place] DOCTOR: JACK CALI MD,[facility] BIRTHDATE: [birth year] CMP noted with normal BUN and creatinine. Sodium 134. Lactic acid 1.0. BMP of the patient of 12/14/2017, normal BUN and creatinine, sodium 135. CBC of the patient, WBC count 15.7, hemoglobin 8.8, hematocrit 27.1, and platelet count of 217,000. DIAGNOSTIC DATA: Chest x-ray of the patient that was done was reviewed personally does not show any acute pulmonary infiltration. Previous noted pulmonary nodules not with the bulk since they were noted small on the CT scan. IMPRESSION: 1. The patient will be currently admitted to the hospital with recurrence of acute exacerbation of chronic obstructive pulmonary disease with acute bronchitis and leukocytosis. 2. History of pulmonary embolus. The patient remains on anticoagulation. 3. Current diagnosis of malignancy for poorly differentiated cancer with a pending confirmation of origination of the tumor. 4. Overall severe debility, remains persistent. 5. Chronic hypoxic respiratory failure. PLAN OF MANAGEMENT: Continue current anticoagulation and bronchodilator. The dose of Solu-Medrol 60 mg will be decreased to 40 mg q.8 hours. The assessment, management, and transfer for the long-term acute facility was discussed with the patient and her daughter. The consultation has been ordered for the patient's long-term acute care facility consultation. The patient was not noted sure, convinced for that. However, the consultation will be obtained. If the patient would not accept that; certainly, the patient continue to be treated in this hospital until the improvement and resolution of the current respiratory issues. Supportive therapy, plan of management, and care plan of treatment. Usual treatment, all other supportive, plan of management, and care. RAHEEL SANTIAGO MD CM:CONSTR:REPORT OF CONSULTATION 1457 12/15/17 0131 interface
[~2017-12-13 11:47] MED LIST changes: +BUPROPION HCL150 M1 PO; +BUSPAR15 MG PO; +CONSTULOSE10 GM/151 PO; +ENOXAPARIN80 MG/0.2 SC; +INCRUSE ELLI62.5 MCG INH; +MUCINEX ER600 MG PO; +NORCO 5-325 TA1 EACH PO; +VITAMIN D-32000 UNIT PO
[2017-12-13 12:29] LABS: HEMATOCRIT 30.5 % (37.0-47.0); HEMOGLOBIN 9.8 g/dl (12.0-16.0); MEAN CELL VOLUME 91.9 fl (81.0-99.0); MEAN CORPUSCULAR HGB 29.5 pg (27.0-31.0); MEAN CORPUSCULAR HGB CONC 32.1 g/dl (33.0-37.0); MEAN PLATELET VOLUME 10.9 fl (9.6-12.3); PLATELET COUNT AUTOMATED 268 10*3/uL (130-400); RED BLOOD COUNT 3.32 10*6/uL (4.10-5.10); RED CELL DISTRI WIDTH 16.3 % (0-14.5); WHITE BLOOD COUNT 17.7 10*3/uL (4.8-10.8)
[2017-12-13 12:43] LABS: ALBUMIN 2.6 gm/dl (3.1-4.5); ALKALINE PHOSPHATASE 87 U/L (45-117); BUN 10 mg/dl (7-24); CHLORIDE 95 mmol/L (98-107); POTASSIUM 4.2 mmol/L (3.5-5.1); SGOT/AST 26 IU/L (3-35); SGPT/ALT 28 U/L (12-78); SODIUM 134 mmol/L (136-145); TOTAL PROTEIN 6.6 gm/dL (6.4-8.2)
[2017-12-13 12:48] LABS: PLATELET SUFFICIENCY NORMAL (NORMAL); TOTAL CELLS COUNTED 100 #CELLS; TROPONIN I < 0.015 ng/ml (<0.045)
[2017-12-13] MEDS ORDERED: ALBUTEROL2.5 MG/0.5 INH (15:04)
[2017-12-13] MEDS ORDERED: SYMB160 INH (15:04)
[2017-12-13] MEDS ORDERED: PROAIR HFA8.5 GM INH (15:05)
[2017-12-13] MEDS ORDERED: LOPRESSOR25 MG PO (15:05)
[2017-12-13] MEDS ORDERED: GENERLAC10 GM/15 M PO (15:06)
[2017-12-13] MEDS ORDERED: INCRUSE ELLI62.5 MCG INH (15:06)
[2017-12-13] MEDS ORDERED: MUCINEX1200 M1 PO (15:09)
[2017-12-13] MEDS ORDERED: Lovenox80 MG/0.8 SC (15:09)
[2017-12-13] MEDS ORDERED: VITAMIN D-32000 UNIT PO (15:09)
[2017-12-13] MEDS ORDERED: BUSPAR15 MG PO (15:10)
[2017-12-13] MEDS ORDERED: NORCO 5-325 TA1 EACH PO (15:10)
[2017-12-14] VITALS: BP 136/77
[2017-12-14 07:18] LABS: HEMATOCRIT 27.1 % (37.0-47.0); HEMOGLOBIN 8.8 g/dl (12.0-16.0); MEAN CELL VOLUME 90.3 fl (81.0-99.0); MEAN CORPUSCULAR HGB 29.3 pg (27.0-31.0); MEAN CORPUSCULAR HGB CONC 32.5 g/dl (33.0-37.0); PLATELET COUNT AUTOMATED 217 10*3/uL (130-400); RED CELL DISTRI WIDTH 16.2 % (0-14.5); WHITE BLOOD COUNT 15.7 10*3/uL (4.8-10.8)
[2017-12-14 07:34] LABS: BUN 11 mg/dl (7-24); CHLORIDE 98 mmol/L (98-107); CREATININE 0.49 mg/dL (0.55-1.02); PHOSPHOROUS 2.9 mg/dL (2.5-4.9); SODIUM 135 mmol/L (136-145)
[2017-12-14 07:57] LABS: PLATELET SUFFICIENCY NORMAL (NORMAL); TOTAL CELLS COUNTED 100 #CELLS
[2017-12-14 08:00] VITALS: BP 138/68
[2017-12-14 12:00] VITALS: BP 152/76
[2017-12-14 16:00] VITALS: BP 122/60
[2017-12-14 20:00] VITALS: BP 123/61
[2017-12-15] VITALS: BP 148/77
[2017-12-15 07:13] LABS: HEMATOCRIT 26.5 % (37.0-47.0); HEMOGLOBIN 8.4 g/dl (12.0-16.0); MEAN CELL VOLUME 91.1 fl (81.0-99.0); MEAN CORPUSCULAR HGB 28.9 pg (27.0-31.0); MEAN CORPUSCULAR HGB CONC 31.7 g/dl (33.0-37.0); MEAN PLATELET VOLUME 11.4 fl (9.6-12.3); PLATELET COUNT AUTOMATED 241 10*3/uL (130-400); RED BLOOD COUNT 2.91 10*6/uL (4.10-5.10); RED CELL DISTRI WIDTH 16.3 % (0-14.5); WHITE BLOOD COUNT 17.4 10*3/uL (4.8-10.8)
[2017-12-15 07:29] LABS: CHLORIDE 102 mmol/L (98-107); POTASSIUM 3.8 mmol/L (3.5-5.1); SODIUM 138 mmol/L (136-145)
[2017-12-15 07:37] LABS: PLATELET SUFFICIENCY NORMAL (NORMAL); POLYCHROMASIA SLIGHT; TOTAL CELLS COUNTED 100 #CELLS
[2017-12-15 07:48] LABS: BUN 15 mg/dl (7-24); CREATININE 0.66 mg/dL (0.55-1.02)
[2017-12-15 08:00] VITALS: BP 125/59
[2017-12-15 12:00] VITALS: BP 133/72
[2017-12-15 16:00] VITALS: BP 137/81
[2017-12-15 20:00] VITALS: BP 140/76
[2017-12-16] VITALS: BP 151/81
[2017-12-16 07:22] LABS: HEMATOCRIT 27.1 % (37.0-47.0); HEMOGLOBIN 8.7 g/dl (12.0-16.0); MEAN CELL VOLUME 92.5 fl (81.0-99.0); MEAN CORPUSCULAR HGB 29.7 pg (27.0-31.0); MEAN CORPUSCULAR HGB CONC 32.1 g/dl (33.0-37.0); MEAN PLATELET VOLUME 11.5 fl (9.6-12.3); PLATELET COUNT AUTOMATED 278 10*3/uL (130-400); RED BLOOD COUNT 2.93 10*6/uL (4.10-5.10); RED CELL DISTRI WIDTH 16.4 % (0-14.5); WHITE BLOOD COUNT 15.1 10*3/uL (4.8-10.8)
[2017-12-16 07:26] LABS: BUN 18 mg/dl (7-24); CHLORIDE 104 mmol/L (98-107); CREATININE 0.67 mg/dL (0.55-1.02); POTASSIUM 4.1 mmol/L (3.5-5.1); SODIUM 140 mmol/L (136-145)
[2017-12-16 07:50] LABS: PLATELET SUFFICIENCY NORMAL (NORMAL); POLYCHROMASIA SLIGHT; TOTAL CELLS COUNTED 100 #CELLS
[2017-12-16 08:00] VITALS: BP 158/56
[2017-12-16 12:00] VITALS: BP 154/84
[2017-12-16 16:00] VITALS: BP 156/89
[2017-12-16 20:00] VITALS: BP 158/87
[2017-12-16 23:56] VITALS: BP 150/80; BP 172/87
[2017-12-17 06:38] LABS: HEMATOCRIT 28.4 % (37.0-47.0); HEMOGLOBIN 9.1 g/dl (12.0-16.0); MEAN CELL VOLUME 90.7 fl (81.0-99.0); MEAN CORPUSCULAR HGB 29.1 pg (27.0-31.0); MEAN PLATELET VOLUME 11.1 fl (9.6-12.3); PLATELET COUNT AUTOMATED 293 10*3/uL (130-400); RED BLOOD COUNT 3.13 10*6/uL (4.10-5.10); RED CELL DISTRI WIDTH 16.6 % (0-14.5); WHITE BLOOD COUNT 11.2 10*3/uL (4.8-10.8)
[2017-12-17 06:55] LABS: BUN 19 mg/dl (7-24); CHLORIDE 98 mmol/L (98-107); CREATININE 0.74 mg/dL (0.55-1.02); POTASSIUM 3.8 mmol/L (3.5-5.1); SODIUM 137 mmol/L (136-145)
[2017-12-17 07:10] LABS: PLATELET SUFFICIENCY NORMAL (NORMAL); POLYCHROMASIA SLIGHT; TOTAL CELLS COUNTED 100 #CELLS
[2017-12-17 08:00] VITALS: BP 148/84
[2017-12-17 12:00] VITALS: BP 142/78
[2017-12-17] MEDS ORDERED: PREDNISONE10 MG PO (13:55)
[2017-12-17] MEDS ORDERED: LEVOFLOXACIN500 MG PO (13:55)
[2017-12-17 16:00] VITALS: BP 185/84
== END 2017-12-17 18:20 | disposition home health service (06) | DRG 871 ==
LOC: ED 11:47 → EDHOLD 14:24 → 5E 14:24
PROVIDERS: Hospitalist; Student in an Organized Health Care Education/Training Program
PROC: 02HV33Z Insertion of Infusion Device into Superior Vena Cava, Percutaneous Approach (ICD-10-PCS; principal; 2017-12-13)
PROC: B548ZZA Ultrasonography of Superior Vena Cava, Guidance (ICD-10-PCS; principal; 2017-12-13)
DX: A41.9 Sepsis, unspecified organism (principal); E43 Unspecified severe protein-calorie malnutrition; G93.41 Metabolic encephalopathy; J18.9 Pneumonia, unspecified organism; J96.11 Chronic respiratory failure with hypoxia; C78.7 Secondary malignant neoplasm of liver and intrahepatic bile duct; C80.1 Malignant (primary) neoplasm, unspecified; D63.0 Anemia in neoplastic disease; J44.0 Chronic obstructive pulmonary disease with (acute) lower respiratory infection; J44.1 Chronic obstructive pulmonary disease with (acute) exacerbation; E87.1 Hypo-osmolality and hyponatremia; R65.20 Severe sepsis without septic shock; J20.9 Acute bronchitis, unspecified; I10 Essential (primary) hypertension; Z90.49 Acquired absence of other specified parts of digestive tract; Z90.710 Acquired absence of both cervix and uterus; Z79.899 Other long term (current) drug therapy; Z86.711 Personal history of pulmonary embolism; Z87.891 Personal history of nicotine dependence; Z68.27 Body mass index [BMI] 27.0-27.9, adult; Z88.1 Allergy status to other antibiotic agents; Z88.0 Allergy status to penicillin; Z88.8 Allergy status to other drugs, medicaments and biological substances; Z82.61 Family history of arthritis; Z82.3 Family history of stroke; Z84.1 Family history of disorders of kidney and ureter

== ENCOUNTER → 2017-12-24 | Outpatient (CLI) | payer OTHER, MEDICAID ==
[~2017-12-24] MED LIST changes: +ALBUTEROL2.5 MG/0.5 INH; +GENERLAC10 GM/15 M PO; +LEVOFLOXACIN500 MG PO; +Lovenox80 MG/0.8 SC; +MUCINEX1200 M1 PO; +SYMB160 INH
== END | disposition home or self-care (01) ==
LOC: MAMMO 11:04
DX: Z12.31 Encounter for screening mammogram for malignant neoplasm of breast (principal)

== ENCOUNTER → 2017-12-30 | Outpatient (CLI) | payer OTHER, MEDICAID | END | disposition home or self-care (01) | LOC: RESCLI 03:49 | DX: I10 Essential (primary) hypertension (principal); J44.9 Chronic obstructive pulmonary disease, unspecified; C79.9 Secondary malignant neoplasm of unspecified site; E55.9 Vitamin D deficiency, unspecified; K59.04 Chronic idiopathic constipation; M54.5 Low back pain; R60.0 Localized edema; Z86.711 Personal history of pulmonary embolism ==

== ENCOUNTER → 2018-01-27 | Outpatient (CLI) | payer OTHER, MEDICAID | END | disposition home or self-care (01) | LOC: RESCLI 01:30 | DX: C79.9 Secondary malignant neoplasm of unspecified site (principal); I10 Essential (primary) hypertension; J44.9 Chronic obstructive pulmonary disease, unspecified; E55.9 Vitamin D deficiency, unspecified; K59.04 Chronic idiopathic constipation; M54.5 Low back pain; G89.29 Other chronic pain; R60.0 Localized edema; Z86.711 Personal history of pulmonary embolism; Z87.891 Personal history of nicotine dependence; Z88.0 Allergy status to penicillin ==

== ENCOUNTER 2018-02-04 22:29 | Inpatient (IN) | payer OTHER, MEDICAID ==
[~2018-02-04] VITALS: Ht 165.1 cm; Wt 68.2 kg
--- NOTE | ~2018-02-04 | PR ---
[place], [place] PROGRESS NOTE NAME: SARAHI NELSON UNIT #: [id number] ROOM: 522 DOCTOR: RAHEEL SANABRIA MD BIRTHDATE: [birth year] DOS: 02/08/2018 SUBJECTIVE: The patient was noted comfortable at this time, resting on the bed, has been eating her breakfast. Denies symptoms of chest pain or any abdominal pain. She denies symptoms of hemoptysis. OBJECTIVE: VITAL SIGNS: For the patient, which was recorded showed the temperature patient noted as normal. The respiratory rate of 18, heart rate of 113-121, blood pressure 156-101/56-88. Pulse ox saturation on 2 liters is 98% saturation. HEENT: Examination shows head was atraumatic. Eyes nonicterus. NECK: Supple. CARDIOVASCULAR: S1, S2 is audible. LUNGS: The patient was noted without any wheezing or crackles at the present time. ABDOMEN: Soft, nontender, bowel sounds present. EXTREMITIES: Without any acute edema. LABORATORY DATA: CBC this morning was noted with increase of the WBC count from 1.6-1.9 today, hemoglobin remains at 8.2, platelet count was normal. IMPRESSION: 1. The patient who has been currently admitted to the hospital, being treated for this patient with leukopenia and anemia related to chemotherapy with acute exacerbation of COPD. General weakness and fatigue. 2. The patient with metastatic malignancy. The patient, of unknown primary. The patient currently treated. PLAN OF MANAGEMENT: Continuation of the bronchodilator. The oxygen supplementation. Decrease the Solu-Medrol dose to 40 mg b.i.d. dosing from today. Continuation other supportive plan of management with the growth factor patient and monitoring of the leukopenia. Usual care, other supportive plan of therapy and management, plan of care. [place], [place] PROGRESS NOTE NAME: SARAHI NELSON UNIT #: [id number] ROOM: 522 DOCTOR: RAHEEL SANABRIA MD BIRTHDATE: [birth year] RAHEEL SANTIAGO MD CM:PNTRANS [id number] RAHEEL CALI MD 02/10/18 0918 interface
--- NOTE | ~2018-02-04 | PR ---
[place], [place] PROGRESS NOTE NAME: SARAHI NELSON UNIT #: [id number] ROOM: 522 DOCTOR: RAHEEL SANABRIA MD BIRTHDATE: [birth year] DOS: 02/09/2018 PULMONARY PROGRESS NOTE SUBJECTIVE: The patient noted comfortable at this time, resting on the bed without any acute distress, coughing with sputum expectoration. She denies symptoms of chest pain or hemoptysis. She continued to get the growth factor because of leukopenia, which has been gradually improving. PHYSICAL EXAMINATION: VITAL SIGNS: This morning at 8 o'clock, heart rate of 99, blood pressure 120/76, respiratory rate 2, and the pulse oxygen saturation was recorded as 98% on 2 liters nasal cannula. HEENT: Examination shows head was atraumatic. Eyes nonicterus. NECK: Supple. CARDIOVASCULAR: S1, S2 audible. LUNGS: Noted without any wheezing or crackles. ABDOMEN: Soft, nontender. EXTREMITIES: Without any acute edema. LABORATORY DATA: CBC today, WBC count 2.7, hemoglobin 8.8, hematocrit 27.3, and platelet count was normal. IMPRESSION: 1. The patient who has been currently noted with improvement in the leukopenia with stable anemia, improving. General weakness and fatigue, side effects of chemotherapy. 2. Chronic respiratory failure. 3. Stable pulmonary nodule as well. 4. Metastatic lung cancer. 5. Acute exacerbation of chronic obstructive pulmonary disease as well. PLAN OF THERAPY: Continuation of the bronchodilators and oxygen supplementation previously, in progress. Reduce the dose of Solu-Medrol to 40 mg daily dose. Other additional treatment changes will be continuously made for the patient based on progression of illness. Leukopenia continued to resolve progressively. [place], [place] PROGRESS NOTE NAME: SARAHI NELSON UNIT #: [id number] ROOM: 522 DOCTOR: RAHEEL SANABRIA MD BIRTHDATE: [birth year] RAHEEL SANTIAGO MD CM:PNTRANS [id number] RAHEEL CALI MD 02/10/18 0118 interface
--- NOTE | ~2018-02-04 | PR ---
[place], [place] PROGRESS NOTE NAME: SARAHI NELSON UNIT #: [id number] ROOM: 522 DOCTOR: JACK CALI MD,RAHEEL BIRTHDATE: [birth year] DOS: 02/10/2018 SUBJECTIVE: She was noted comfortable at this time, resting on the bed, without any acute distress. The respiratory symptoms have been improving progressively. Leukopenia of the patient is resolving progressively. OBJECTIVE: VITAL SIGNS: Normal temperature, respiratory rate 20, heart rate 94, blood pressure 102/60 this morning. Pulse oxygen saturation on 2 liters nasal cannula 95-96% saturation. HEENT: Examination shows head was atraumatic. Eyes, no icterus. NECK: Supple. CARDIOVASCULAR: S1, S2 are audible. LUNGS: The patient was noted without any wheezing or crackles today. ABDOMEN: Soft, nontender. EXTREMITIES: Without any acute edema. LABORATORY DATA: CBC today was noted, WBC count 3.3, hemoglobin 7.8, hematocrit 24. Platelet count was normal. IMPRESSION: The patient with continued resolution and improvement of respiratory status of the patient was noted with resolving leukopenia, improving chronic obstructive pulmonary disease exacerbation. PLAN OF MANAGEMENT: The patient is ready for home discharge from pulmonary standpoint, whenever desired she could be discharged. In the meantime, continue current dose of corticosteroids and bronchodilator therapies as previously. RAHEEL SANTIAGO MD CM:PNTRANS [id number] RAHEEL CALI MD 02/11/18 0058 interface
--- NOTE | ~2018-02-04 | CON ---
[place], [place] REPORT OF CONSULTATION NAME: SARAHI NELSON UNIT #: [id number] ROOM: 522 DOCTOR: RAHEEL SANABRIA MD BIRTHDATE: [birth year] DOS: 02/07/2018 PULMONARY CONSULTATION, EVALUATION, AND MANAGEMENT CONSULTATION REQUESTED BY: Hospitalist services. REASON FOR CONSULTATION: To assess the patient for overall COPD. HISTORY OF PRESENT ILLNESS: This is a 72-year-old white female patient who was admitted to the hospital under the hospitalist services on 02/04/2018. The patient was brought to the hospital by the family members as the patient has been noted progressive general weakness and fatigue. She was noted with diarrhea, inability to take liquids. She has been receiving chemotherapy. The patient is under care of Dr. Tinsley in [place], [place] for the recently diagnosed metastatic cancer. The patient has been noted with symptoms of shortness of breath. The symptoms of the patient has been noted progressed. She was supposed to be seen in my office for followup visit about a month, but the patient came into the hospital, where she has been assessed and currently being admitted to the hospital for further medical management. She was still complaining of general weakness and fatigue at this time. She does have shortness of breath that occurs with mild exertion. She does have a cough, which is described intermittently nonproductive at times. She has not been reporting any symptoms of active wheezing. REVIEW OF SYSTEMS: CONSTITUTIONAL SYMPTOMS: Severe fatigue and tiredness reported. Denies symptoms of fever or chills. EYES: Denies any burning, redness, or tenderness. EARS, NOSE, AND THROAT SYMPTOMS: Denies sore throat, hoarseness, otalgia, postnasal drainage, or epistaxis. CARDIOVASCULAR SYSTEM: Denies angina pain, edema, or pain of the lower extremities. GASTROINTESTINAL SYMPTOMS: The patient was noted with diarrhea, previously seemed to be resolved with some nauseated feeling. No vomiting. Denies any symptoms of hematemesis, melena, or hematochezia. GENITOURINARY SYMPTOMS: Denies any dysuria, suprapubic pain, hematuria, or urinary incontinence. SKIN: Denies lesions or rashes. CENTRAL NERVOUS SYSTEM: Denies dizziness, headache, diplopia, or syncopal episodes. Remaining systems were reviewed with the patient and they were noted all negative. PAST MEDICAL HISTORY: The patient was known with history of: 1. Severe COPD. 2. Chronic hypoxic respiratory failure. 3. Metastatic adenocarcinoma, unknown primary. 4. Essential hypertension. 5. Pulmonary embolism also noted in 11/2017, treated with anticoagulation. [place], [place] REPORT OF CONSULTATION NAME: SARAHI NELSON UNIT #: [id number] ROOM: 522 DOCTOR: RAHEEL SANABRIA MD BIRTHDATE: [birth year] PAST SURGICAL HISTORY: 1. Appendectomy. 2. Hysterectomy. 3. Colonoscopy. 4. CT-guided needle aspirate biopsy of the liver met on 12/10/2017 for diagnosis of poorly differentiated metastatic cancer, unknown primary on 12/10/2017. SOCIAL HISTORY: The patient lives at home, currently taken care by her daughter. She was . She does not have a history of alcohol use or illicit drug use. Tobacco use noted from age 15 years, a pack of cigarettes per day until 08/2017. FAMILY HISTORY: Father at age 55-year-old from complication related to renal failure. The mother at age 56-year-old from complication of acute stroke. DRUG ALLERGIES: NOTED NYQUIL AND PENICILLIN ALLERGIES. MEDICATIONS: Current medications administered use of metoprolol tartrate, vitamin D, Mucinex, Dulera, Solu-Medrol 60 mg q.8 hours., DuoNeb q.4 hours, Levaquin, and other p.r.n. medication administration. PHYSICAL EXAMINATION: GENERAL: This is a 72-year-old white female currently noted sitting on side of bed without acute distress. Height of 5 feet 5 inches, weight 150 pounds, and BMI 25. VITAL SIGNS: The patient shows normal temperature in the last couple of days, respiratory rate 18-20, heart rate of 160-180, sinus tachycardia, and blood pressure 152/82-154/89. Pulse oxygen saturation of the patient recorded as 99% saturation on 2 liters nasal cannula. HEENT: Examination shows head was atraumatic. Eyes nonicterus. Oral mucosa was dry. NECK: Supple. CARDIOVASCULAR: S1, S2 is audible. LUNGS:. The patient was noted with decreased breath sounds in the lungs bilaterally with scattered expiratory wheezing. No crackles. ABDOMEN: Soft, nontender. EXTREMITIES: Without any acute edema. CENTRAL NERVOUS SYSTEM: The patient's cranial nerves 2-12 intact. Overall, muscular weakness was noted. There were no focal neurologic deficits. VISIBLE SKIN: No lesions or rashes. MUSCULOSKELETAL: The patient noted without any acute deformities. LABORATORY DATA: CBC on 02/04/2018 on admission, WBC count 3.0, hemoglobin 8.7, hematocrit 27.2, and platelet count was normal. PT and INR of the patient on 02/04/2018 was normal. Lactic acid was 1.2 on 02/04/2018. The CMP of the patient on 02/05/2018, normal BUN and creatinine. CBC of the patient of 02/07/2018, WBC count 1.6, hemoglobin 8.2, hematocrit 26.1, and platelet count [place], [place] REPORT OF CONSULTATION NAME: SARAHI NELSON UNIT #: [id number] ROOM: 522 [facility]: [birth year] was normal at 183,000. BMP of the patient that was done on 01/30/2018 noted normal BUN and creatinine, glucose 118, and sodium 133. The blood culture of the patient from 02/04/2018, 4 sets showed no bacterial growth at this time. Final culture results were pending. The chest x-ray of the patient that was done on admission and on 02/06/2018, both were noted without any acute pulmonary infiltration. Yesterday, the patient had a CTA of the chest was completed that does not show evidence of pulmonary embolism, scattered pulmonary nodules noted subcentimeter, was essentially remains unchanged as previously. Right adrenal mass was seen as previously. IMPRESSION: 1. The patient has been currently treated with acute exacerbation of chronic obstructive pulmonary disease with general weakness and fatigue may be related to the chemotherapy administration and the malignancy. 2. Leukopenia related to the chemotherapy. 3. History of chronic hypoxic respiratory failure, remains stable as well. 4. Possibility of protein-calorie malnutrition as well. 5. Overall severe debility with muscular weakness was noted, multifactorial. There was no evidence of acute pneumonia at the present time. The malignancy also remains stable, unchanged at least with the CT scan of the chest assessment without any changes since her previous CT scan in 11/2017. PLAN OF MANAGEMENT: Reduce the Solu-Medrol dose to 40 mg q.8 hours today and further reduction may be done tomorrow based on the reduction of the wheezing. Ordered the prealbumin level for the patient as well to assess the overall nutritional status. Symptomatic management. Continue oxygen supplementation for chronic respiratory failure management. Usual care with additional treatment changes to be made based on progression of the illness. Monitoring of the leukopenia for this patient related to chemotherapy with the supplements to be used as a growth factors to improve the leukopenia related to chemotherapy. Anemia was also noted related to chemotherapy as well. RAHEEL SANTIAGO MD CM:CONSTR:REPORT OF CONSULTATION 1513 02/08/18 0238 interface
[2018-02-04 22:30] VITALS: BP 112/48
[2018-02-04 23:26] LABS: BASO % 0.7 % (0.0-1.0); EOS # 0.1 10*3/uL (0.0-0.4); EOS % 2.6 % (1.0-4.0); HEMATOCRIT 27.2 % (37.0-47.0); HEMOGLOBIN 8.7 g/dl (12.0-16.0); LYMPH # 0.3 10*3/uL (1.3-4.4); LYMPH % 10.9 % (27.0-41.0); MEAN CELL VOLUME 92.2 fl (81.0-99.0); MEAN CORPUSCULAR HGB 29.5 pg (27.0-31.0); MEAN PLATELET VOLUME 11.9 fl (9.6-12.3); MONO # 0.1 10*3/uL (0.1-1.0); MONO % 3.3 % (3.0-9.0); NEUT # 2.4 10*3/uL (2.3-7.9); NEUT % 80.2 % (47.0-73.0); PLATELET COUNT AUTOMATED 192 10*3/uL (130-400); RED BLOOD COUNT 2.95 10*6/uL (4.10-5.10); RED CELL DISTRI WIDTH 17.6 % (0-14.5)
[2018-02-04 23:44] LABS: ALBUMIN 2.5 gm/dl (3.1-4.5); ALKALINE PHOSPHATASE 140 U/L (45-117); BUN 25 mg/dl (7-24); CHLORIDE 97 mmol/L (98-107); CREATININE 0.79 mg/dL (0.55-1.02); POTASSIUM 4.5 mmol/L (3.5-5.1); SGOT/AST 51 IU/L (3-35); SGPT/ALT 39 U/L (12-78); SODIUM 131 mmol/L (136-145); TOTAL PROTEIN 6.4 gm/dL (6.4-8.2)
[2018-02-04 23:48] LABS: TROPONIN I < 0.015 ng/ml (<0.045)
[2018-02-05] VITALS (7 sets, daily range): BP systolic 116–152; BP diastolic 52–94
[2018-02-05 02:31] LABS: LIPASE 71 U/L (73-393)
[2018-02-05 02:32] LABS: TROPONIN I < 0.015 ng/ml (<0.045)
[2018-02-05] MEDS ORDERED: PREDNISONE10 M1 PO (02:45)
[2018-02-05 06:05] LABS: ALBUMIN 2.2 gm/dl (3.1-4.5); ALKALINE PHOSPHATASE 124 U/L (45-117); BUN 22 mg/dl (7-24); CHLORIDE 104 mmol/L (98-107); CREATININE 0.66 mg/dL (0.55-1.02); PHOSPHOROUS 2.9 mg/dL (2.5-4.9); POTASSIUM 4.4 mmol/L (3.5-5.1); SGOT/AST 45 IU/L (3-35); SGPT/ALT 36 U/L (12-78); SODIUM 138 mmol/L (136-145); TOTAL PROTEIN 5.8 gm/dL (6.4-8.2)
[2018-02-05 06:06] LABS: HEMATOCRIT 25.1 % (37.0-47.0); HEMOGLOBIN 7.9 g/dl (12.0-16.0); MEAN CORPUSCULAR HGB 29.3 pg (27.0-31.0); MEAN CORPUSCULAR HGB CONC 31.5 g/dl (33.0-37.0); MEAN PLATELET VOLUME 12.6 fl (9.6-12.3); PLATELET COUNT AUTOMATED 170 10*3/uL (130-400); RED CELL DISTRI WIDTH 17.6 % (0-14.5); WHITE BLOOD COUNT 2.3 10*3/uL (4.8-10.8)
[2018-02-05 06:14] LABS: ACT PARTIAL THROMBO TIME 31.2 SECONDS (20.8-31.5); INTERNATIONAL NORM RATIO 1.1 (2.0-3.5)
[2018-02-05 06:59] LABS: TOTAL CELLS COUNTED 100 #CELLS
[2018-02-05 07:00] LABS: PLATELET SUFFICIENCY NORMAL (NORMAL); POLYCHROMASIA SLIGHT
[2018-02-05] MEDS ORDERED: COMPAZINE5 M3 PO (07:23)
[2018-02-06 00:14] VITALS: BP 142/81
[2018-02-06 06:51] LABS: HEMATOCRIT 27.1 % (37.0-47.0); HEMOGLOBIN 8.5 g/dl (12.0-16.0); MEAN CELL VOLUME 91.6 fl (81.0-99.0); MEAN CORPUSCULAR HGB 28.7 pg (27.0-31.0); MEAN CORPUSCULAR HGB CONC 31.4 g/dl (33.0-37.0); MEAN PLATELET VOLUME 12.6 fl (9.6-12.3); PLATELET COUNT AUTOMATED 188 10*3/uL (130-400); RED BLOOD COUNT 2.96 10*6/uL (4.10-5.10); RED CELL DISTRI WIDTH 17.6 % (0-14.5); WHITE BLOOD COUNT 2.1 10*3/uL (4.8-10.8)
[2018-02-06 07:14] LABS: ALBUMIN 2.6 gm/dl (3.1-4.5); ALKALINE PHOSPHATASE 139 U/L (45-117); BUN 15 mg/dl (7-24); CHLORIDE 101 mmol/L (98-107); CREATININE 0.72 mg/dL (0.55-1.02); POTASSIUM 4.3 mmol/L (3.5-5.1); SGOT/AST 46 IU/L (3-35); SGPT/ALT 39 U/L (12-78); SODIUM 134 mmol/L (136-145); TOTAL PROTEIN 6.3 gm/dL (6.4-8.2)
[2018-02-06 07:48] LABS: PLATELET SUFFICIENCY NORMAL (NORMAL); TOTAL CELLS COUNTED 100 #CELLS
[2018-02-06 07:49] LABS: BURR CELLS FEW
[2018-02-06 08:00] VITALS: BP 148/82
[2018-02-06 12:00] VITALS: BP 154/89
[2018-02-06 16:00] VITALS: BP 146/87
[2018-02-06 20:00] VITALS: BP 142/88
[2018-02-07 00:26] VITALS: BP 157/98
[2018-02-07 06:37] LABS: HEMATOCRIT 26.1 % (37.0-47.0); HEMOGLOBIN 8.2 g/dl (12.0-16.0); MEAN CELL VOLUME 92.2 fl (81.0-99.0); MEAN CORPUSCULAR HGB CONC 31.4 g/dl (33.0-37.0); MEAN PLATELET VOLUME 11.8 fl (9.6-12.3); PLATELET COUNT AUTOMATED 183 10*3/uL (130-400); RED BLOOD COUNT 2.83 10*6/uL (4.10-5.10); RED CELL DISTRI WIDTH 17.4 % (0-14.5)
[2018-02-07 06:59] LABS: BUN 18 mg/dl (7-24); CHLORIDE 99 mmol/L (98-107); CREATININE 0.81 mg/dL (0.55-1.02); POTASSIUM 4.2 mmol/L (3.5-5.1); SODIUM 133 mmol/L (136-145)
[2018-02-07 07:15] LABS: PLATELET SUFFICIENCY NORMAL (NORMAL); TOTAL CELLS COUNTED 100 #CELLS
[2018-02-07 07:18] LABS: WHITE BLOOD COUNT 1.6 10*3/uL (4.8-10.8)
[2018-02-07 08:00] VITALS: BP 152/82
[2018-02-07 12:00] VITALS: BP 150/90
[2018-02-07 16:23] VITALS: BP 153/80
[2018-02-07 20:00] VITALS: BP 153/82
[2018-02-08] VITALS: BP 166/91
[2018-02-08 06:08] LABS: HEMATOCRIT 25.7 % (37.0-47.0); HEMOGLOBIN 8.2 g/dl (12.0-16.0); MEAN CELL VOLUME 91.1 fl (81.0-99.0); MEAN CORPUSCULAR HGB 29.1 pg (27.0-31.0); MEAN CORPUSCULAR HGB CONC 31.9 g/dl (33.0-37.0); MEAN PLATELET VOLUME 11.6 fl (9.6-12.3); PLATELET COUNT AUTOMATED 203 10*3/uL (130-400); RED BLOOD COUNT 2.82 10*6/uL (4.10-5.10); RED CELL DISTRI WIDTH 17.4 % (0-14.5)
[2018-02-08 06:19] LABS: BUN 18 mg/dl (7-24); CHLORIDE 101 mmol/L (98-107); CREATININE 0.73 mg/dL (0.55-1.02); POTASSIUM 4.1 mmol/L (3.5-5.1); SODIUM 135 mmol/L (136-145)
[2018-02-08 06:24] LABS: PREALBUMIN 24 mg/dl (20-40)
[2018-02-08 06:44] LABS: PLATELET SUFFICIENCY NORMAL (NORMAL); POLYCHROMASIA SLIGHT; TOTAL CELLS COUNTED 100 #CELLS
[2018-02-08 06:46] LABS: WHITE BLOOD COUNT 1.9 10*3/uL (4.8-10.8)
[2018-02-08 08:00] VITALS: BP 156/88
[2018-02-08 12:00] VITALS: BP 156/100
[2018-02-08 16:00] VITALS: BP 144/89
[2018-02-08 20:00] VITALS: BP 103/55
[2018-02-09] VITALS: BP 118/54
[2018-02-09 06:47] LABS: HEMATOCRIT 27.3 % (37.0-47.0); HEMOGLOBIN 8.8 g/dl (12.0-16.0); MEAN CELL VOLUME 91.3 fl (81.0-99.0); MEAN CORPUSCULAR HGB 29.4 pg (27.0-31.0); MEAN CORPUSCULAR HGB CONC 32.2 g/dl (33.0-37.0); MEAN PLATELET VOLUME 11.3 fl (9.6-12.3); NUCLEATED RED BLOOD CELL 1.1 % (0.0-0.0); PLATELET COUNT AUTOMATED 221 10*3/uL (130-400); RED BLOOD COUNT 2.99 10*6/uL (4.10-5.10); RED CELL DISTRI WIDTH 17.7 % (0-14.5); WHITE BLOOD COUNT 2.7 10*3/uL (4.8-10.8)
[2018-02-09 08:00] VITALS: BP 128/76
[2018-02-09 08:01] LABS: ATYPICAL LYMPHS 1 % (0-0); PLATELET SUFFICIENCY NORMAL (NORMAL); POLYCHROMASIA SLIGHT; ROULEAUX SLIGHT; TOTAL CELLS COUNTED 100 #CELLS
[2018-02-09 11:32] LABS: BILIRUBIN NEGATIVE (NEGATIVE); BLOOD NEGATIVE (NEGATIVE); COLOR YELLOW (YELLOW); GLUCOSE NEGATIVE (NEGATIVE); KETONE NEGATIVE (NEGATIVE); LEUKO ESTERASE TRACE (NEGATIVE); NITRITE NEGATIVE (NEGATIVE); PH 5.5 (5.0-9.0); SPECIFIC GRAVITY 1.025 (1.005-1.030); UROBILINOGEN 0.2 E.U./dl (0.2-1.0)
[2018-02-09 11:52] LABS: BACTERIA 1+; CLARITY SL CLOUDY (CLEAR); RBC 0-2 rbc/hpf (0-2); WBC 16-20 wbc/hpf (0-5)
[2018-02-09 12:00] VITALS: BP 138/72
[2018-02-09] MEDS ORDERED: PREDNISONE10 MG PO (14:34)
[2018-02-09] MEDS ORDERED: GENERLAC10 GM/15 M PO (14:34)
[2018-02-09] MEDS ORDERED: DOXYCYCLINE100 MG PO (14:34)
[2018-02-09] MEDS ORDERED: METOPROLOL TART50 M1 PO (14:34)
[2018-02-09 16:00] VITALS: BP 123/63
[2018-02-09 20:00] VITALS: BP 120/70
[2018-02-10 00:19] VITALS: BP 105/49
[2018-02-10 06:29] LABS: HEMATOCRIT 24.9 % (37.0-47.0); HEMOGLOBIN 7.8 g/dl (12.0-16.0); MEAN CELL VOLUME 92.2 fl (81.0-99.0); MEAN CORPUSCULAR HGB 28.9 pg (27.0-31.0); MEAN CORPUSCULAR HGB CONC 31.3 g/dl (33.0-37.0); MEAN PLATELET VOLUME 11.1 fl (9.6-12.3); NUCLEATED RED BLOOD CELL 0.1 10*3/uL (0.0-0.0); NUCLEATED RED BLOOD CELL 1.5 % (0.0-0.0); PLATELET COUNT AUTOMATED 180 10*3/uL (130-400); RED CELL DISTRI WIDTH 17.9 % (0-14.5); WHITE BLOOD COUNT 3.3 10*3/uL (4.8-10.8)
[2018-02-10 07:27] LABS: TOTAL CELLS COUNTED 100 #CELLS
[2018-02-10 07:28] LABS: PLATELET SUFFICIENCY NORMAL (NORMAL)
[2018-02-10 07:29] LABS: POLYCHROMASIA SLIGHT; ROULEAUX SLIGHT
[2018-02-10 08:00] VITALS: BP 102/60
== END 2018-02-10 09:55 | disposition home health service (06) | DRG 871 ==
LOC: ED 22:29 → 5E 02-05 00:40 → EDHOLD 02-05 00:40 → 5E 02-05 00:55
PROVIDERS: Emergency Medicine Emergency Medical Services; Internal Medicine; Internal Medicine Critical Care Medicine; Internal Medicine Hematology & Oncology; Student in an Organized Health Care Education/Training Program
DX: A41.9 Sepsis, unspecified organism (principal); J18.9 Pneumonia, unspecified organism; E43 Unspecified severe protein-calorie malnutrition; G93.41 Metabolic encephalopathy; J96.10 Chronic respiratory failure, unspecified whether with hypoxia or hypercapnia; D70.1 Agranulocytosis secondary to cancer chemotherapy; E87.8 Other disorders of electrolyte and fluid balance, not elsewhere classified; C78.7 Secondary malignant neoplasm of liver and intrahepatic bile duct; Z99.81 Dependence on supplemental oxygen; C34.90 Malignant neoplasm of unspecified part of unspecified bronchus or lung; E87.1 Hypo-osmolality and hyponatremia; J44.1 Chronic obstructive pulmonary disease with (acute) exacerbation; J44.0 Chronic obstructive pulmonary disease with (acute) lower respiratory infection; D64.9 Anemia, unspecified; E86.0 Dehydration; R65.20 Severe sepsis without septic shock; T45.1X5A Adverse effect of antineoplastic and immunosuppressive drugs, initial encounter; R74.0 Nonspecific elevation of levels of transaminase and lactic acid dehydrogenase [LDH]; F41.8 Other specified anxiety disorders; R73.9 Hyperglycemia, unspecified; R73.03 Prediabetes; I10 Essential (primary) hypertension; E55.9 Vitamin D deficiency, unspecified; R91.1 Solitary pulmonary nodule; F32.9 Major depressive disorder, single episode, unspecified; T14.8XXA Other injury of unspecified body region, initial encounter; X58.XXXA Exposure to other specified factors, initial encounter; Z88.0 Allergy status to penicillin; Z88.8 Allergy status to other drugs, medicaments and biological substances; Z79.899 Other long term (current) drug therapy; Z87.01 Personal history of pneumonia (recurrent); Y92.89 Other specified places as the place of occurrence of the external cause; Z90.49 Acquired absence of other specified parts of digestive tract; Z90.710 Acquired absence of both cervix and uterus; Z87.891 Personal history of nicotine dependence; Z82.3 Family history of stroke; Z82.61 Family history of arthritis; Z84.1 Family history of disorders of kidney and ureter; Z68.25 Body mass index [BMI] 25.0-25.9, adult; Y93.89 Activity, other specified; Y99.8 Other external cause status; Z86.711 Personal history of pulmonary embolism

== ENCOUNTER → 2018-02-18 | Outpatient (CLI) | payer OTHER ==
[~2018-02-18] MED LIST changes: +COMPAZINE5 M3 PO; +DOXYCYCLINE100 MG PO; +METOPROLOL TART50 M1 PO; +PREDNISONE10 M1 PO
== END | disposition home or self-care (01) ==
LOC: RESCLI 03:45
DX: C79.9 Secondary malignant neoplasm of unspecified site (principal); I10 Essential (primary) hypertension; J44.9 Chronic obstructive pulmonary disease, unspecified; E55.9 Vitamin D deficiency, unspecified; K59.04 Chronic idiopathic constipation; M54.5 Low back pain; G89.29 Other chronic pain; R60.0 Localized edema; Z86.711 Personal history of pulmonary embolism; Z74.09 Other reduced mobility; Z87.891 Personal history of nicotine dependence; Z88.0 Allergy status to penicillin

== ENCOUNTER 2018-03-02 10:06 | Inpatient (IN) | payer OTHER ==
[~2018-03-02] VITALS: Ht 167.6 cm; Wt 68.6 kg
--- NOTE | ~2018-03-02 | PR ---
[place], [place] PROGRESS NOTE NAME: SARAHI NELSON UNIT #: [id number] ROOM: 504 DOCTOR: JACK CALI MDRAHEEL BIRTHDATE: [birth year] DOS: 03/06/2018 SUBJECTIVE: She has been noted comfortable at this time without any acute distress. Cough and chest congestion of the patient was still noted as previously without any changes. She has not been reported any symptoms of chest pain or hemoptysis. General weakness still persisted. Denies symptoms of abdominal pain or nausea. Denies symptoms of edema or pain of the lower extremities. Appetite was noted decreased. Remaining systems were reviewed. They were noted all negative. PHYSICAL EXAMINATION: VITAL SIGNS: For the patient normal temperature, respiratory rate 18, heart rate 118-124 with sinus tachycardia and APCs or MAT. Blood pressure 128/75 to 122/77. The pulse oxygen saturation of the patient recorded on 3 liters nasal cannula 98% saturation. HEENT: Head was atraumatic. Eyes nonicterus. NECK: Supple. CARDIOVASCULAR: S1, S2 audible. LUNGS: Noted generalized decreased breath sounds bilaterally with questionable crackles. ABDOMEN: Soft, nontender, bowel sounds present. EXTREMITIES: Without any acute edema. MUSCULOSKELETAL: No acute deformities. CENTRAL NERVOUS SYSTEM: Cranial nerves 2-12 intact. LABORATORY DATA: The patient's respiratory viral panel for 03/03/2018 was noted negative. CBC of the patient today, WBC count 13.3, hemoglobin 9.2, hematocrit 29.3, platelet count normal 260,000. BMP of the patient, normal BUN and creatinine and the remaining electrolytes. Urinalysis was noted normal as well. Platelet function assay was done yesterday that was normal as well. IMPRESSION: 1. The patient who has been noted with chest congestion, which has been noted excessive, inability to expectorate sputum with general weakness and fatigue. 2. History of metastatic cancer on a primary adenocarcinoma, acute right lower lobe pneumonia, which has been noted actually worsened. PLAN OF TREATMENT: Continue with the current plan of management of the patient with antibiotics, bronchodilators and oxygen supplementation. The bronchoscopy will be done today. She is already noted n.p.o. for that. Change in antibiotics with de-escalation will occur for the patient after the bronchial washing cultures. [place], [place] PROGRESS NOTE NAME: SARAHI NELSON UNIT #: [id number] ROOM: 504 DOCTOR: RAHEEL SANABRIA MD BIRTHDATE: [birth year] RAHEEL SANTIAGO MD CM:ALPHONSO 1644 [id number] RAHEEL CALI MD 03/07/18 0047 interface
--- NOTE | ~2018-03-02 | EKG ---
[place], [place] ELECTROCARDIOGRAM REPORT NAME: SARAHI NELSON UNIT #: [id number] ROOM: [facility] DOCTOR: JACK CALI MD,RAHEEL BIRTHDATE: [birth year] DOS: 03/02/2018 TIME: 10:35 a.m. RHYTHM: Shows mild sinus tachycardia, heart rate 105 beats per minute. PVCs were noted. Nonspecific ST-T changes were noted. RAHEEL SANTIAGO MD CM:EKGRPT:ELECTROCARDIOGRAM REPORT [id number] RAHEEL CALI MD
--- NOTE | ~2018-03-02 | PR ---
[place], [place] PROGRESS NOTE NAME: SARAHI NELSON UNIT #: [id number] ROOM: 404 DOCTOR: RAHEEL SANABRIA MD BIRTHDATE: [birth year] DOS: 03/14/2018 SUBJECTIVE: She was transferred to Intensive Care Unit because of increased tachycardia. She has been noted with mild hypertension; the dose of the Lopressor was noted to be on hold for three days resulting in worsening of the tachycardia. The patient was started on the Lopressor resulting in improvement in tachycardia and reduction of the heart rate. This morning, the patient was noted comfortable. Denies symptoms of chest pain or hemoptysis. Denies symptoms of nausea or vomiting. OBJECTIVE: VITAL SIGNS: For the patient, which have been recorded showed normal temperature, respiratory rate 22, heart rate 111 , previously noted 150 yesterday at noon and the blood pressure was 114/68. Pulse oxygen saturation on 4 liters nasal cannula is 93% saturation. HEENT: No acute change. NECK: Supple. CARDIOVASCULAR: S1, S2 is audible. LUNGS: The patient was noted without any wheeze or crackles. ABDOMEN: Soft, nontender. EXTREMITIES: Without any acute edema. LABORATORY DATA: CBC, WBC count 32.2, hemoglobin 10, platelet count was normal. Culture of the sputum repeated again was noted with heavy growth of normal jazlyn. IMPRESSION: 1. The patient with congestive heart failure, atrial tachycardia, atrial fibrillation/flutter. 2. Leukocytosis, etiology not clearly defined. All the culture the patient including sputum, bronchial washing noted negative. Possibility of steroid-induced leukocytosis cannot be completely excluded. PLAN OF MANAGEMENT: Reduce the Solu-Medrol dose to 20 mg daily at this time because of absence of wheezing. Continue in the meantime the current antibiotic and the patient's other therapy, plan and management. Monitor respiratory status otherwise closely. Usual treatment, all other supportive plan of treatment and care. [place], [place] PROGRESS NOTE NAME: SARAHI NELSON UNIT #: [id number] ROOM: 404 DOCTOR: RAHEEL SANABRIA MD BIRTHDATE: [birth year] RAHEEL SANTIAGO MD CM:PNTRANS [id number] RAHEEL CALI MD 03/14/18 6385 interface
--- NOTE | ~2018-03-02 | PROC NOTE ---
[place], [place] PROCEDURE NOTE NAME: SARAHI NELSON UNIT #: [id number] ROOM: 504 DOCTOR: JACK CALI MD,RAHEEL BIRTHDATE: [birth year] DOS: 03/10/2018 PROCEDURE: Right sided thoracentesis, ultrasound guided. PREOPERATIVE DIAGNOSIS: The patient with small to moderate pleural fluid, remains persistent, patient's current chest x-ray abnormality, nonresolving. POSTOPERATIVE DIAGNOSES: Successful removal of 250 mL of pleural fluid from right pleural space without any difficulty. COMPLICATIONS: None. PROCEDURE DESCRIPTION: Informed consent obtained for the patient. The patient was placed in sitting position. Ultrasound of the chest was already performed. The site of thoracentesis marked in the right posterior lower chest wall. Skin was cleaned with chlorhexidine solution. After cleaning the skin, 1% lidocaine was administered in the skin intercostal space. The right pleural space was entered during administration of local anesthetic, a small amount of fluid was aspirated. After the small incision given in the skin, [place] thoracentesis catheter introduced through the incision into the right pleural space without any difficulty. A total of 250 mL pleural fluid was obtained. The specimen was sent to the laboratory including cytology specimen. Procedure was well tolerated by the patient without any complications. Chest x-ray that was done was noted with significant improvement in the aeration of the lung with a trace pleural fluid noted in the right side for this patient with improvement in the aeration of the lung and the pulmonary infiltration and/or atelectasis. RAHEEL SANTIAGO MD CM:PROCNOTE:PROCEDURE NOTE [id number] RAHEEL CALI MD
--- NOTE | ~2018-03-02 | PR ---
[place], [place] PROGRESS NOTE NAME: SARAHI NELSON UNIT #: [id number] ROOM: 504 DOCTOR: RAHEEL SANABRIA MD BIRTHDATE: [birth year] DOS: 03/04/2018 PULMONARY PROGRESS NOTE SUBJECTIVE: She has been noted with coughing, chest congestion and mild shortness breath at rest this morning. Noted generalized weakness and fatigue. Denies symptoms of chest pain or any hemoptysis. Denies abdominal pain. The appetite is noted decreased. Denies symptoms of headache. Denies symptoms of edema of the lower extremities or hematuria. OBJECTIVE: VITAL SIGNS: This morning, temperature normal, respiratory rate 18, heart rate 110, blood pressure 140/99. Pulse oxygen saturation on 2 liters 95% saturation. HEENT: Head was atraumatic. Eyes nonicterus. NECK: Supple. CARDIOVASCULAR: S1, S2 is audible. LUNGS: Noted decreased breath sounds with scattered expiratory wheezing, no crackles. ABDOMEN: Soft, nontender. Bowel sounds present. EXTREMITIES: The patient noted without any edema. MUSCULOSKELETAL: Noted without any acute deformities. CENTRAL NERVOUS SYSTEM: The patient noted nonfocal. LABORATORY DATA: CBC today: WBC count 11.4, hemoglobin 8, hematocrit 26, platelet count were normal. The BMP this morning, BUN normal, creatinine normal. Prealbumin 11. Blood culture, no bacterial growth from the 03/02/2018. Final culture results pending. IMPRESSION: 1. The patient with moderate severe protein-calorie malnutrition was noted at this time with acute exacerbation of chronic obstructive pulmonary disease, general debility, chest congestion with retained secretion of the airways was also noted. 2. History of metastatic adenocarcinoma, unknown primary as well. PLAN OF MANAGEMENT: Continuation of the bronchodilators, oxygen supplementation. Obtain a chest x-ray to assess any interval development of new pulmonary issues. Overall prognosis remains guarded. Other supportive plan of management in the meantime to be continued. [place], [place] PROGRESS NOTE NAME: SARAHI NELSON UNIT #: [id number] ROOM: 504 DOCTOR: RAHEEL SANABRIA MD BIRTHDATE: [birth year] ARHEEL SANTIAGO MD CM:PNTRANS [id number] RAHEEL CALI MD 03/05/18 0229 interface
--- NOTE | ~2018-03-02 | PR ---
[place], [place] PROGRESS NOTE NAME: SARAHI NELSON UNIT #: [id number] ROOM: [facility] DOCTOR: RAHEEL SANABRIA MD BIRTHDATE: [birth year] DOS: 03/13/2018 SUBJECTIVE: The patient was noted comfortable at rest this time this morning of assessment, not noted with any edema of the lower extremities. The coughing has been noted very mild at this time. Denies symptoms of shortness of breath. There were no symptoms of abdominal pain. OBJECTIVE: VITAL SIGNS: For the patient, which are recorded showed normal temperature, respiratory rate 18, heart rate of 134, previously 127, blood pressure of 106/45-110/77. Pulse oxygen saturation on 4 liters nasal cannula 95% saturation. HEENT: Shows head was atraumatic. Eyes nonicterus. NECK: Supple. CARDIOVASCULAR: S1, S2 is audible. LUNGS: Noted without any wheezing or crackles at the present time. Breaths are noted mildly decreased bilaterally. ABDOMEN: Soft, nontender. EXTREMITIES: Without any acute edema. LABORATORY DATA: The patient's sputum culture was ordered, noted as heavy bacterial growth. Blood culture was ordered for leukocytosis noted no bacterial growth. The patient and both of the set final results were pending. IMPRESSION: Leukocytosis with tachycardia, which has been noted at the present time. There was no so far active blood culture. The patient did have normal blood cultures noted. The chest x-ray was not noted with any acute pneumonia at the present time as well. PLAN OF THERAPY: Continuation of the current plan of management at the present time with the monitoring of the respiratory status and other symptoms. Continuation of other supportive plan of management and care plan. The Cardiology consultation might be necessary for the tachycardia assessment. [place], [place] PROGRESS NOTE NAME: SARAHI NELSON UNIT #: [id number] ROOM: [facility] DOCTOR: RAHEEL SANABRIA MD BIRTHDATE: [birth year] RAHEEL SANTIAGO MD CM:PNTRANS [id number] RAHEEL CALI MD 03/13/18 1322 interface
--- NOTE | ~2018-03-02 | PR ---
[place], [place] PROGRESS NOTE NAME: SARAHI NELSON UNIT #: [id number] ROOM: 504 DOCTOR: RAHEEL SANABRIA MD BIRTHDATE: [birth year] DOS: 03/11/2018 SUBJECTIVE: She has a thoracentesis done yesterday successfully without any difficulty. Procedure well tolerated. Chest congestion and shortness of breath of the patient seemed to be better. The patient was still noted with general weakness and fatigue. Denies symptoms of abdominal pain. There were no symptoms of nausea or vomiting. The patient denies any edema or pain of the lower extremities. The remaining systems were reviewed. They were noted all negative. OBJECTIVE: VITAL SIGNS: For the patient was noted normal temperature, respiratory rate 18, heart rate of 111, blood pressure 115/58. Pulse oxygen saturation of the patient noted on 3 liters nasal cannula is 90-93% saturation. HEENT: Examination shows head was atraumatic. Eyes nonicterus. NECK: Supple. CARDIOVASCULAR: S1, S2 audible. LUNGS: The patient was noted without any wheeze or crackles. Moderate decreased breath sounds noted in the lungs bilaterally. ABDOMEN: Soft and nontender. EXTREMITIES: Without any acute edema. VISIBLE SKIN: No lesions or rashes. MUSCULOSKELETAL SYMPTOMS: Without any acute deformities. LABORATORY DATA: Analysis of pleural fluid, which was reviewed at the lab yesterday, pH noted at 7.35. The pleural fluid for the patient noted only 87 WBCs with 69% ____ epithelial cells, 12% lymphocytes, 18% neutrophils. The cholesterol was noted as less than 50, albumin 1.2. The chemistry for the patient noted with finding consistent with transexudative effusion for the patient based only on the LDH criteria. Otherwise appeared to be a transudative effusion. The CBC of the patient this morning, WBC count 28.4, hemoglobin 10.1, hematocrit 32.1, and platelet count 238,000. The CMP of the patient this morning, BUN 34, creatinine was 1.01. Creatinine was normal. The other electrolytes was noted as normal. AST mildly elevated ____. Alkaline phosphatase 189. The culture of the pleural fluid, no bacterial growth. The Gram stain moderate and white blood cells, no microorganisms. IMPRESSION: 1. The patient with persistent acute respiratory failure, exudative pleural fluid only based on LDH criteria for the patient was noted removed, 250 mL ____ significant improvement in aeration. 2. Leukocytosis was also noted significant for the patient at this time. Exact etiology remains unclear, may be related to corticosteroids, new infection including ruling out C. diff colitis if the diarrhea was present. 3. The patient with known history of metastatic cancer for the patient with no primary adenocarcinoma with pulmonary nodules, some enlargement of the nodule would be considered at the present time. The bronchial washing culture was noted with no bacterial isolation. PLAN OF TREATMENT: The patient will be continued with oxygen supplementation, [place], [place] PROGRESS NOTE NAME: SARAHI NELSON UNIT #: [id number] ROOM: 504 DOCTOR: RAHEEL SANABRIA MD BIRTHDATE: [birth year] bronchodilator to assess for any interval development of infection and treat accordingly based on any sources of infection. Stool for C. diff toxin could be done if the patient would be noted with the diarrhea. Urine culture certainly could be done for the patient to exclude any urinary tract infection. Other supportive therapy, plan of management and care plan. Additional treatment changes to be done for the patient based on the progression of the illness. She does not have any cough or any sputum expectoration at the present time. Prognosis of the patient will be noted guarded. Two sets of blood cultures will be ordered for this patient. RAHEEL SANTIAGO MD CM:PNTRANS [phone] RAHEEL CALI MD 03/11/18 1547 interface
--- NOTE | ~2018-03-02 | PR ---
[place], [place] PROGRESS NOTE NAME: SARAHI NELSON UNIT #: [id number] ROOM: 504 DOCTOR: JACK CALI MD,RAHEEL BIRTHDATE: [birth year] DOS: 03/09/2018 PULMONARY PROGRESS NOTE SUBJECTIVE: The patient has been still noted with some symptoms of shortness of breath, coughing with chest congestion. Denies symptoms of hemoptysis. Denies symptoms of nausea or vomiting. Noted general weakness and fatigue. Oxygen supplementation with nasal cannula. Remaining systems were reviewed, they were noted limited, but negative. OBJECTIVE: VITAL SIGNS: For the patient, which are recorded this morning showed normal temperature, respiratory rate 22, heart rate 96, blood pressure 113/70. Pulse oxygen saturation of the patient recorded 3 liters nasal cannula is 94% saturation. HEENT: Examination shows head was atraumatic. Eyes nonicterus. NECK: Supple. CARDIOVASCULAR: S1, S2 is audible. LUNGS: Noted without any wheezing or crackles, decreased breaths are noted in the right lower portion of the lung. ABDOMEN: Soft, nontender. Bowel sounds present. EXTREMITIES: Without any acute edema. MUSCULOSKELETAL: No acute deformities. CENTRAL NERVOUS SYSTEM: Noted nonfocal. LABORATORY DATA: The BMP that was done 03/09/2018, BUN 25, creatinine was normal. Potassium 3.4. CO2 of 34. CBC this morning: WBC count elevated 21.1, hemoglobin 9.6, hematocrit 30.6, platelet count 317,000. Ultrasound of the chest was personally done for the patient this morning noted with moderate pleural fluid noted in the right side. The patient explaining the current worsening of the chest x-ray correlation. IMPRESSION AND PLAN: The patient has been noted with leukocytosis, which seemed to be increased, but there were no signs of any acute infection at this time. ____ the patient does have diarrhea as well. The thoracentesis was planned for the patient to be done in the morning. Lovenox will be discontinued for the patient or placed on hold for patient tomorrow morning dose prior to thoracentesis. The patient could continue the Lovenox today. The dose was already administered at 6 o'clock. The consent will be obtained with the patient's daughter. Continue in the meantime other therapy, plan of management and care plan. Usual treatment, other supportive therapy and care. Usual medical management. [place], [place] PROGRESS NOTE NAME: AKSHAT NELSONRA [place] UNIT #: [id number] ROOM: 504 DOCTOR: RAHEEL SANABRIA MD BIRTHDATE: [birth year] RAHEEL SANTIAGO MD CM:PNTRANS [phone] RAHEEL CALI MD 03/09/18 2336 interface
--- NOTE | ~2018-03-02 | CON ---
[place], [place] REPORT OF CONSULTATION NAME: SARAHI NELSON UNIT #: [id number] ROOM: 504 DOCTOR: RAHEEL SANABRIA MD BIRTHDATE: [birth year] DOS: 03/03/2018 REASON FOR CONSULTATION: Assessment of chronic obstructive pulmonary disease exacerbation. HISTORY OF PRESENT ILLNESS: The patient is a 72-year-old white female who has been known to me with past history of COPD, chronic hypoxic respiratory failure. She has been developing increased shortness of breath, which was ongoing for the past few days. The symptoms have been noted gradually worsened. The patient was noted with general weakness and fatigue. She has been coughing with clear sputum intermittently at times. The patient denies any symptoms of hemoptysis with that. She denies any symptoms of wheezing, but the predominant symptom noted essentially coughing and wheezing. The patient has been receiving chemotherapy for previous metastatic adenocarcinoma with metastasis to the liver. She had received only one chemotherapy about a month ago or so. The patient has not been given any further chemotherapy because of illness so far. REVIEW OF SYSTEMS: CONSTITUTIONAL SYMPTOMS: General weakness and fatigue, which was noted progressive in the last several days. Denies any symptoms of fever or chills. EYES: Denies any burning, redness, or tenderness. EARS, NOSE, AND THROAT SYMPTOMS: Denies sore throat, hoarseness, otalgia, postnasal drainage. CARDIOVASCULAR: Denies anginal pain, edema, or pain of the lower extremities. GASTROINTESTINAL: No dysphagia, nausea, vomiting, diarrhea, abdominal pain, hematemesis, melena, or hematochezia. GENITOURINARY: No dysuria, suprapubic pain, or hematuria. MUSCULOSKELETAL: Without any acute joint pain or tenderness. VISIBLE SKIN: No lesions or rashes reported. MUSCULOSKELETAL: Without any acute deformities. Past medical history, surgical history, social history, and family history of the patient all reviewed with the patient again and remains unchanged for the patient since assessment and consultation of 02/07/2018. The medical record of the patient was available for any reference for those details. CURRENT MEDICATIONS: Administered today were noted use of vitamin D, metoprolol tartrate, Dulera, Compazine, Lovenox 60 mg subq b.i.d., Mucinex 1200 mg b.i.d., Solu-Medrol 60 mg IV b.i.d., Dulera 200/5 two inhalations b.i.d., BuSpar, Levaquin, and other medications. DRUG ALLERGIES: 1. PENICILLIN. 2. NYQUIL. PHYSICAL EXAMINATION: GENERAL: This is a 72-year-old female who has been currently noted to be awake and alert without any acute distress, but appeared to be fatigued and tired. Height of the patient recorded by the nursing staff at the current admission is 5 feet 6 inches, weight 145 pounds, BMI 23. [place], [place] REPORT OF CONSULTATION NAME: SARAHI NELSON UNIT #: [id number] ROOM: 504 DOCTOR: JACK CALI MD,[facility] BIRTHDATE: [birth year] VITAL SIGNS: The patient was recorded since admission, temperature remains normal, respiratory rate range between 18-14, heart rate 113-99, blood pressure 125/58-95/55. Pulse oxygen saturation on 3 liters cannula was recorded as 98% saturation. HEENT: Head was atraumatic. Eyes nonicterus. NECK: Supple. Oral mucosa was noted moist. CARDIOVASCULAR SYSTEM: S1, S2 audible. LUNGS: Noted with generalized decreased breath sounds. ABDOMEN: Soft, flat, nontender, bowel sounds present. EXTREMITIES: Without any acute edema. MUSCULOSKELETAL: Noted without any acute deformities. VISIBLE SKIN: No lesions or rashes. CENTRAL NERVOUS SYSTEM: No gross focal deficit. Cranial nerves 2-12 intact. LABORATORY DATA: CBC for the patient that was done yesterday admission WBC count 14.4, hemoglobin 9.1, hematocrit 29.1 and platelet count were normal. CMP of the patient that was done 03/02/2018, BUN 20, creatinine normal. Sodium 134, potassium 3.4. Alkaline phosphatase 280. Lactic acid 2.0. The troponin noted to be normal yesterday. CBC this morning, normal WBC count, hemoglobin 8.1, hematocrit 26.2, platelet count 211,000. PT/PTT was noted. INR 1.3, PTT normal. BMP this morning, normal BUN and creatinine. Potassium 3.4. One view chest x-ray of the patient that was done in the Emergency was reviewed for the patient does not show any acute pulmonary infiltration with a small right pleural effusion was noted. IMPRESSION: 1. The patient who has been currently admitted to the hospital was noted with a partial weight loss with increased respiratory symptoms and findings consistent with acute exacerbation of chronic obstructive pulmonary disease, possibility acute bronchitis would be considered along with that. 2. Severe debility. 3. History of adenocarcinoma, which are noted metastatic unknown primary, treated with chemotherapy only. The patient only able to receive one chemotherapy over a month ago. 4. Over debilitated status noted at this time. Possibility of protein-calorie malnutrition as well. PLAN OF MANAGEMENT: Order the sputum for gram stain and culture. Continue antibiotics. Continue current dose of corticosteroids and other therapy, plan of management as well. Also ordered respiratory viral panel to rule out any viral etiology ____ current severe debility and lethargy. Usual care, other supportive therapy, plan of management and care. Additional treatment changes will be made for this patient based on the progression of the illness. Thanks for allowing me to participate in the care of this patient. [place], [place] REPORT OF CONSULTATION NAME: SARAHI NELSON UNIT #: [id number] ROOM: [facility] DOCTOR: RAHEEL SANABRIA MD BIRTHDATE: [birth year] RAHEEL SANTIAGO MD CM:CONSTR:REPORT OF CONSULTATION 1549 03/04/18 8308 interface
--- NOTE | ~2018-03-02 | PR ---
[place], [place] PROGRESS NOTE NAME: SARAHI NELSON UNIT #: [id number] ROOM: 504 DOCTOR: JACK CALI MD,RAHEEL BIRTHDATE: [birth year] DOS: 03/08/2018 PULMONARY PROGRESS NOTE SUBJECTIVE: The patient noted comfortable at this time, still noted with some chest congestion, not expectorating much sputum. Culture with bronchial washing noted a routine jazlyn. Denies symptoms of chest pain or any hemoptysis. Denies symptoms of nausea or vomiting. The patient denies symptoms of any acute pain at this time. Remaining systems were reviewed and they were noted all negative. PHYSICAL EXAMINATION: VITAL SIGNS: Vital signs of the patient this morning, normal temperature, respiratory rate 20, heart rate 112-101 as multifocal atrial tachycardia time. The blood pressure 153/81-131/83. Pulse oxygen saturation on 3 liters nasal cannula is 98% saturation. HEENT: Examination shows head was atraumatic. Eyes nonicterus. NECK: Supple. CARDIOVASCULAR: S1, S2 is audible. LUNGS: The patient was noted with decreased breath sounds noted in the right lower lung. There were no crackles. ABDOMEN: Soft, nontender. Bowel sounds present. EXTREMITIES: Without any acute edema. LABORATORY DATA: CBC today, WBC count 16.3, hemoglobin 9, hematocrit 29.0, platelet count 304,000, and 95% segmented neutrophils. Cultures of the blood, no bacterial growth on 03/02/2018. Culture with bronchial washing was noted moderate growth of yeast. BMP: BUN normal and creatinine was normal. Prealbumin 19. Urine Strep antigen and Legionella urinary antigen both noted negative. Chest x-ray 2-view for the patient that was done this morning were personally reviewed shows evidence of pleural fluid was noted more than pneumonia in the right side worsen from previous exam. IMPRESSION: 1. The patient with right pleural fluid with associated acute pneumonia. The pleural fluid appeared to give a worsening of the pneumonia appearance on the chest x-ray. 2. History of metastatic adenocarcinoma, unknown primary, treated just one time with the chemotherapy previously. 3. Overall severe debility. 4. Leukocytosis. 5. Acute exacerbation of chronic obstructive pulmonary disease. PLAN OF TREATMENT: Assess the patient tomorrow with the ultrasound for the potential thoracentesis. Decrease the Solu-Medrol dose to 40 mg daily. Continue oxygen supplementation to maintain a pulse ox saturation 92% or greater. Continue the Lovenox for the therapeutic anticoagulation for past pulmonary embolism and history of recurrent active malignancy. Antibiotic to be continued, Levaquin is the only antibiotic based on the current culture results. [place], [place] PROGRESS NOTE NAME: SARAHI NELSON UNIT #: [id number] ROOM: [facility] DOCTOR: RAHEEL SANABRIA MD BIRTHDATE: [birth year] RAHEEL SANTIAGO MD CM:PNTRANS [phone] RAHEEL CALI MD 03/09/187 interface
--- NOTE | ~2018-03-02 | PR ---
[place], [place] PROGRESS NOTE NAME: SARAHI NELSON UNIT #: [id number] ROOM: 504 DOCTOR: JACK CALI MD,RAHEEL BIRTHDATE: [birth year] DOS: 03/12/2018 PULMONARY PROGRESS NOTE SUBJECTIVE: The patient has been noted comfortable at this time. She was noted with symptoms of chest congestion. She has been noted coughing ____ sputum expectoration. Denies symptoms of hemoptysis. She was still noted generalized weakness and fatigue. She denies symptoms of nausea, vomiting, or diarrhea. Denies any pain of the lower extremities. Mild edema of the lower extremities was reported. The remaining systems reviewed, they were noted all negative. OBJECTIVE: VITAL SIGNS: Which have been recorded showed the temperature noted as normal, respiratory rate 20, heart rate 71, blood pressure 108/61. Blood pressure previously noted as 76/56 as well. Pulse oxygen saturation on 4 liters is 94% saturation. HEENT: Head was atraumatic. Eyes nonicterus. NECK: Supple. CARDIOVASCULAR: S1, S2 audible. LUNGS: Noted with scattered crackles in the lungs. There was no wheezing. ABDOMEN: Soft, nontender. Bowel sounds present. EXTREMITIES: Mild edema. VISIBLE SKIN: No lesions or rashes. CENTRAL NERVOUS SYSTEM: Generalized weakness. There were no focal deficits. MUSCULOSKELETAL: Without any acute deformities. LABORATORY DATA: CMP was not done. CBC that I ordered this morning was completed, shows WBC count still elevated at 28.9, hemoglobin 9.7, hematocrit 30.9, platelet count 211,000. IMAGING DATA: Chest x-ray 1 view which was done yesterday was personally reviewed, shows a possibility of small patchy infiltration in the right mid lung. MediPort noted in place. Minimal pleural fluid was noted on the right side. IMPRESSION: 1. The patient currently noted with acute exacerbation of chronic obstructive pulmonary disease. 2. Leukocytosis. Possibly, superimposed acute pneumonia would be suggested. She has been noted with excessive increased cough recently with leukocytosis. 3. History of known metastatic cancer of the lung with possible worsening in the lung with pulmonary nodules. PLAN OF MANAGEMENT: The patient was started on oral doxycycline. Sputum for Gram stain culture was ordered, which is pending. Blood culture was taken. Urine culture was also taken. Stool for C. diff toxin was also ordered in case of any diarrhea. Overall prognosis remains guarded. [place], [place] PROGRESS NOTE NAME: OMARMARIA LUISASARAHI S UNIT #: [id number] ROOM: [facility] DOCTOR: RAHEEL SANABRIA MD BIRTHDATE: [birth year] RAHEEL SANITAGO MD CM:PNROLO [id number] RAHEEL CALI MD 03/12/18 1233 interface
--- NOTE | ~2018-03-02 | PROC NOTE ---
[place], [place] PROCEDURE NOTE NAME: SARAHI NELSON UNIT #: [id number] ROOM: 504 DOCTOR: RAHEEL SANABRIA MD BIRTHDATE: [birth year] DOS: 03/06/2018 BRONCHOSCOPY PREOPERATIVE DIAGNOSES: The patient with acute pneumonia was noted progressive with coughing, chest congestion, inability to expectorate sputum, and history of metastatic adenocarcinoma. POSTOPERATIVE DIAGNOSES: The patient with acute pneumonia was noted progressive with coughing, chest congestion, inability to expectorate sputum, and history of metastatic adenocarcinoma with mucus impaction of endobronchial tree and ongoing active pneumonia suspected as well. PROCEDURE DESCRIPTION: Informed consent obtained for the patient. She was brought to the OR and placed in supine position. Conscious administered by the Anesthesia Department. After achieving proper sedation, airway introduced into the mouth. Bronchoscope advanced to the airway into laryngeal area. Epiglottis and vocal cords were seen. Vocal cords were moving in symmetrical movements. Bronchoscope entered to vocal cord and tracheal lumen. Tracheal lumen was identified. The tracheal lumen was noted with moderate amount of thick mucopurulent secretion mixture, which was suctioned out at milly level. The patient with moderate amount of purulent secretion in the right lower lobe endobronchial tree. Impaction of the main bronchial tree was noted. Some secretion present in the left main stem bronchus as well. All the secretions suctioned out clear with normal saline wash. There were no endobronchial obstructive lesions noted. Bronchial washings sent for appropriate cultures. Based on the bronchoscopy, no change in treatment will be needed. RAHEEL SANTIAGO MD CM:PROCNOTE:PROCEDURE NOTE [id number] RAHELE CALI MD
--- NOTE | ~2018-03-02 | PROC NOTE ---
[place], [place] PROCEDURE NOTE NAME: SARAHI NELSON UNIT #: [id number] ROOM: 504 DOCTOR: ANGELA SHANNON BIRTHDATE: [birth year] DOS: REFERRING PHYSICIAN: Dr. Reddy. RADIOLOGIST: Dr. Slade. HISTORY OF PRESENT ILLNESS: The patient is a 72-year-old female admitted to [facility] on 03/02/2018 due to dyspnea. The patient was diagnosed with COPD exacerbation. The patient's hospital course was complicated by development of right lower lobe pneumonia. Modified barium swallow was ordered to rule out aspiration. The patient's medical history is also significant for current lung cancer, sepsis, hypertension and pneumonitis. The patient is previously unknown to [facility] service. GENERAL COMMENTS: Patient remained awake, alert and cooperative, although reported she was very tired. The patient was receiving 3 liters of oxygen via nasal cannula. She was positioned upright on the stretcher. The patient denied concerns regarding swallowing and reported that she was tolerating a regular diet with thin liquids prior to admission. Oral mechanism exam, mild lingual weakness noted. The patient is slow to coordinate between oral motor movements. The patient is with very limited dentition and no dentures, otherwise unremarkable. MBSS METHODS: This exam was viewed in the lateral plane. The patient self fed the following barium impregnated consistencies. Single sips of thin liquids via straw x 3, multiple consecutive sips of thin liquids via straw x 1, teaspoons of pureed x 1 and bites of coarse solids x 1. ORAL PHASE: Adequate bolus acceptance with no anterior loss. The patient with prolonged oral manipulation and mastication; however, AP bolus transit was adequate. No oral residue appreciated. PHARYNGEAL PHASE: Initiation of the swallow response was timely. HLE was adequate in both superior and anterior planes with subsequent complete epiglottic retroflexion. No penetration or aspiration was observed with any consistency. Base of tongue to posterior pharyngeal wall contact was reduced with resulting mild to moderate vallecular residue. This residue cleared during subsequent swallows. IMPRESSION: The patient tolerated all presented consistencies without penetration or aspiration. Given her limited dentition, recommend soft diet with thin liquids. The patient also requires slow rate of feeding and small bites/sips given prolonged oral phase. RECOMMENDATIONS: 1. Initiate soft diet with thin liquids. 2. Aspiration precautions, fully upright, awake and alert for all p.o., small bites/sips, slow rate, oral care at least b.i.d., do not eat/drink when short of breath or very fatigued. [place], [place] PROCEDURE NOTE NAME: SARAHI NELSON UNIT #: [id number] ROOM: [facility] DOCTOR: ANGELA SHANONN BIRTHDATE: [birth year] PLAN OF CARE: [facility]ER will follow up likely x1 to ensure tolerance to diet and reinforce aspiration precautions. Thank you for consulting. If you have any questions/concerns, please call the [facility] Department at [phone]. Angela Moore CM:PROCNOTE:PROCEDURE NOTE [id number] ANGELA SHANNON
--- NOTE | ~2018-03-02 | PR ---
[place], [place] PROGRESS NOTE NAME: SARAHI NELSON UNIT #: [id number] ROOM: 504 DOCTOR: JACK CAIL MDRAHEEL BIRTHDATE: [birth year] DOS: 03/10/2018 SUBJECTIVE: She still noted symptoms of shortness breath with cough, chest congestion. She has not been noted symptoms of nausea or vomiting. She has not been noted any worsening of the respiratory symptom in the last 24 hours. She denies symptoms of any chest pain. Denies symptoms of nausea or vomiting. Denies any pain, edema of lower extremity. General weakness remains persistent. OBJECTIVE: VITAL SIGNS: For the patient, which are recorded showed the temperature noted normal, respiratory rate of 18, heart rate of 70, blood pressure 100/61. The pulse oxygen saturation 3 liters nasal cannula 94% saturation. HEENT: Shows head was atraumatic. Eyes nonicterus. NECK: Supple. CARDIOVASCULAR: S1, S2 audible. LUNGS: Decreased breath sounds noted in the right lower portion of the lungs. There were no wheezing or crackles. ABDOMEN: Flat, soft, nontender. EXTREMITIES: Without any acute edema. MUSCULOSKELETAL: Without any acute deformities. CENTRAL NERVOUS SYSTEM: Cranial nerves 2-12 intact. LABORATORY DATA: The patient was ordered CT scan of the chest without contrast by the primary care attending, which was personally reviewed. Bilateral pleural fluid was noted, small to moderate pleural fluid in the right side and a very small pleural fluid noted in the left side as well. Evidence of patchy infiltration was noted with nodules in the lungs. IMPRESSION: 1. The patient was currently treated for the pneumonia noted with the pleural fluid bilaterally. Lack of CT scan of the chest with IV contrast does limit the finding of the mediastinum, right hilar lymphadenopathy cannot be completely excluded. The nodule, which has been noted in the lungs might be representing a possibility of metastatic malignancy as well the area of compression atelectasis, the right lower lobe versus pneumonia was suspected as well. 2. History of known lung cancer. The patient unknown primary has adenocarcinoma with one chemotherapy administered. PLAN OF MANAGEMENT: The patient has been already assessed at bedside noted with a small to moderate pleural fluid, correlating to the chest x-ray as well as with the CT scan of the chest, will be undergoing thoracentesis. No change in antibiotics or other medical management otherwise will be needed. Continue other supportive therapy, plan of management. The COPD exacerbation seems to be resolving progressively. At this time, the patient has not been noted any wheezing. She started receiving Solu-Medrol 40 mg daily. Bronchodilator will be continued. Additional changes or adjustments in medications if necessary after the thoracentesis will be ordered accordingly. [place], [place] PROGRESS NOTE NAME: SARAHI NELSON UNIT #: [id number] ROOM: 504 DOCTOR: RAHEEL SANABRIA MD BIRTHDATE: [birth year] RAHEEL SANTIAGO MD CM:ALPHONSO [id number] RAHEEL CALI MD 03/10/18 1517 interface
--- NOTE | ~2018-03-02 | PR ---
[place], [place] PROGRESS NOTE NAME: SARAHI NELSON UNIT #: [id number] ROOM: 404 DOCTOR: RAHEEL SANABRIA MD BIRTHDATE: [birth year] DOS: 03/15/2018 SUBJECTIVE: The patient noted comfortable at this time without any acute distress. She has been noted to be sleepy. The patient noted also to vocal commands. A family member has been present at bedside with the patient. The patient's code status of advanced directives has been changed to just comfort measures. OBJECTIVE: VITAL SIGNS: The blood pressure at noon rather noted 71/46, heart rate 127, respiratory rate 20, temperature 99. The pulse oxygen saturation 3 liters nasal cannula 96% saturation. HEENT: Examination shows head was atraumatic. Eyes nonicterus. NECK: Supple. CARDIOVASCULAR: S1, S2 audible. LUNGS: The patient was noted with moderate decreased breath sounds bilaterally without any wheeze or crackles. ABDOMEN: Soft, nontender. EXTREMITIES: Without acute edema. LABORATORY DATA: WBC count in the CBC today was noted 26.6, decreased from previous level. More than 30,000 BMP for this patient, BUN 36, and creatinine was normal. IMPRESSION: 1. Leukocytosis for the patient with potential infection and sepsis has been considered, but the exact source was unknown. 2. The patient with advanced metastatic adenocarcinoma of unknown primary. Change in mental status, multifactorial. PLAN OF TREATMENT: No changes in the plan of care. Proceed with the hospice assessment as agreed upon by the patient and family members as well. Overall, prognosis remains poor. [place], [place] PROGRESS NOTE NAME: SARAHI NELSON UNIT #: [id number] ROOM: 404 DOCTOR: RAHEEL SANABRIA MD BIRTHDATE: [birth year] RAHEEL SANTIAGO MD CM:PNTRANS [id number] [id number] RAHEEL CALI MD 03/15/181947 interface
--- NOTE | ~2018-03-02 | PR ---
[place], [place] PROGRESS NOTE NAME: SARAHI NELSON UNIT #: [id number] ROOM: 504 DOCTOR: JACK CALI MDRAHEEL BIRTHDATE: [birth year] DOS: 03/05/2018 SUBJECTIVE: She has been noted with chest congestion, inability to cough. However, shortness breath was noted somewhat better from yesterday. There were symptoms of chest pain reported. General weakness and fatigue were noted. There were symptoms of nausea, vomiting, diarrhea, and abdominal pain. Generalized weakness and fatigue persisted. Remaining systems were reviewed. They were noted all negative. PHYSICAL EXAMINATION: VITAL SIGNS: For the patient, which are recorded as normal temperature, respiratory rate 20, heart rate of 110, and blood pressure 149/91. The pulse oxygen saturation 3 liters nasal canula 99-100% saturation. HEENT: Head was atraumatic. Eyes nonicterus. NECK: Supple. CARDIOVASCULAR: S1, S2 audible. LUNGS: The patient was noted with decreased breath sounds in the lungs were noted bilaterally. Occasional crackles and wheezing. ABDOMEN: Soft and nontender. Bowel sounds present. EXTREMITIES: The patient without any acute edema. SKIN: No lesions or rashes. MUSCULOSKELETAL: ____ deformity. CENTRAL NERVOUS SYSTEM: No focal deficit. General weakness was noted. LABORATORY DATA: CBC today: WBC count was normal, hemoglobin 8.6, hematocrit 28.3, and platelet count 259,000. BMP this morning, normal BUN and creatinine. Lactic acid was normal today as well. Chest x-ray of the patient that I ordered yesterday was reviewed, was noted with increasing pneumonia for the patient in the right lower lobe with some associated pleural effusion. IMPRESSION: The patient with acute pneumonia, right lower lobe which were noted progressive with significant chest congestion ____ expectorate sputum with severe general weakness, fatigue, metastatic cancer of unknown primary, protein calorie malnutrition status as well. PLAN OF THERAPY: Continuation of the bronchodilator with oxygen supplementation. Continuation of the antibiotics as well. The patient had been assessed for the patient for ____ and procedure was discussed with the patient and his daughter, Selene. The consent was obtained from the patient and the daughter, both agreeable to proceed with the bronchoscopy. N.p.o. past midnight status will be achieved. In the meantime, continue other therapy, plan of management and care plan. Usual treatment. Supportive care, other therapies. [place], [place] PROGRESS NOTE NAME: SARAHI NELSON UNIT #: [id number] ROOM: [facility] DOCTOR: RAHEEL SANABRIA MD BIRTHDATE: [birth year] RAHEEL SANTIAGO MD CM:PNTRANS [id number] RAHEEL CALI MD 03/05/18 1446 interface
--- NOTE | ~2018-03-02 | PR ---
[place], [place] PROGRESS NOTE NAME: SARAHI NELSON UNIT #: [id number] ROOM: 504 DOCTOR: JACK CALI MD,RAHEEL BIRTHDATE: [birth year] DOS: 03/07/2018 PULMONARY PROGRESS NOTE SUBJECTIVE: She has been noted comfortable with reduction of the chest congestion, but still noted with some cough and not expectorate sputum. Bronchoscopy done yesterday with a significant amount of secretions removed from the endobronchial tree. She has now been noted with symptoms of hemoptysis, chest pain, general weakness, and fatigue. She denies symptoms of headache. Decreased mobility noted, generally has suffered from weakness. Remaining systems reviewed and they were noted all negative. PHYSICAL EXAMINATION: VITAL SIGNS: Normal temperature, respiratory rate 18, heart rate 101, and blood pressure 125/79. The pulse oxygen saturation recorded on 3 liters nasal cannula is 96% saturation. HEENT: On examination, head was atraumatic. Eyes nonicterus. NECK: Supple. CARDIOVASCULAR: S1, S2 audible. LUNGS: The patient noted without any wheeze or crackles at the present time. Breaths are noted generally diminished bilaterally. ABDOMEN: Soft and nontender. Bowel sounds present. EXTREMITIES: The patient without any acute edema. MUSCULOSKELETAL: No acute deformities. CENTRAL NERVOUS SYSTEM: Without any gross focal deficit. General weakness persisted with debility. LABORATORY DATA: The culture of the bronchial washing today was noted normal jazlyn, preliminary final culture results pending. Gram stain bronchial washings yesterday, many white blood cells, moderate epithelial cells, many gram-positive bacilli, a few gram-negative bacilli, and a few budding yeast. Vancomycin trough level noted as normal yesterday at 16.9 in the therapeutic range. BMP this morning, normal BUN and creatinine. CBC of the patient this morning, WBC count 15.4, hemoglobin 9, hematocrit 28.6, and platelet count 347,000. IMPRESSION: 1. The patient with a known history of metastatic cancer was also noted. 2. The patient with evidence of acute pneumonia involving the right lower lobe; currently, treated with broad-spectrum intravenous antibiotics. 3. Overall severe debility. 4. Stable respiratory failure as well. PLAN OF MANAGEMENT: Continue antibiotic currently without any changes, bronchodilators, oxygen supplementation, and physical therapy as tolerated. Additional treatment changes will be made for the patient in the antibiotic based on the culture results. Preliminary culture results were noted no bacterial growth. The patient could be continued on Levaquin and other antibiotics could be discontinued. Chest x-ray of the patient, monitoring will be continued. Repeat chest x-ray to be done in the morning to reassess the progression of the pneumonia with radiological assessment. ____ management was [place], [place] PROGRESS NOTE NAME: OMARSARAHI UNIT #: [id number] ROOM: [facility] DOCTOR: RAHEEL SANABRIA MD BIRTHDATE: [birth year] discussed with the patient's daughter and other family members today at the bedside. Overall prognosis remains guarded. RAHEEL SANTIAGO MD CM:PNTRANS [id number] [id number] RAHEEL CALI MD 03/08/18 0013 interface
--- NOTE | ~2018-03-02 | CON ---
[place], [place] REPORT OF CONSULTATION NAME: SARAHI NELSON UNIT #: [id number] ROOM: 504 DOCTOR: CHRISTY BUTLER MD BIRTHDATE: [birth year] DOS: 03/03/2018 ATTENDING PHYSICIAN: Bruce Gil D.O. HISTORY OF PRESENT ILLNESS: The patient is a 72-year-old female. The patient with a past medical history of: 1. Chronic obstructive pulmonary disease. 2. Metastatic cancer of the lung with metastasis to the liver, status post chemotherapy. 3. Chronic respiratory failure and oxygen dependence. 4. Hypertension. 5. Metabolic encephalopathy, prediabetic. 6. History of sepsis. 7. Stasis dermatitis. 8. History of tubular adenoma of the colon. 9. Vitamin D deficiency. 10. History of appendectomy, hysterectomy and liver biopsy. The patient is presently admitted to [facility] with acute respiratory failure with acute exacerbation of COPD. The patient is very weak, lethargic and has mental confusion off and on. The patient is diagnosed with sepsis and severe protein-calorie malnutrition. The patient's condition deteriorated after she was started on chemotherapy in January by Dr. Keller. The patient's daughter is present with her and would like to take her home with her. The patient's daughter is requesting appetite stimulation. The patient is somewhat anxious and confused and does not want to discuss the situation any further. No chest pains at this time, just shortness of breath. The patient is on oxygen. REVIEW OF SYSTEMS: LUNGS: Increasing shortness of breath and wheezing. GASTROINTESTINAL: No nausea, poor appetite. CARDIOVASCULAR: No chest pains. FAMILY HISTORY: Noncontributory. SOCIAL HISTORY: The patient does live at home with her daughter, was moved into the area from [place]. FAMILY HISTORY: Noncontributory. HOME MEDICATIONS: DuoNeb, buspirone, Lovenox, guaifenesin, hydrocodone, lactulose, metoprolol, prednisone, bronchodilator inhalers. ALLERGIES: Known ALLERGIES TO PENICILLIN, DEXTROMETHORPHAN, PSEUDOEPHEDRINE. PHYSICAL EXAMINATION: GENERAL: Awake, alert, somewhat anxious, but in no visible distress. Generalized weakness and the patient is wearing oxygen. HEENT AND NECK: Extraocular movements are intact. Sclerae are anicteric. Oral [place], [place] REPORT OF CONSULTATION NAME: SARAHI NELSON UNIT #: [id number] ROOM: 504 DOCTOR: CHRISTY BUTLER MD BIRTHDATE: [birth year] mucosa is moist and clean. No obvious facial weakness. Neck is supple without any lymphadenopathy. No thyromegaly. No JVD. No carotid arterial bruits. LUNGS: Lung auscultation revealed expiratory wheezes all over. CARDIOVASCULAR SYSTEM: Heart rate is regular in rate and rhythm. S1 and S2 normally audible. No significant murmur or any other abnormal cardiac sounds. ABDOMEN: Soft, nontender. No obvious organomegaly. Bowel sounds are present. No obvious herniation. EXTREMITIES: Without significant cyanosis or edema. Warm to touch. CENTRAL NERVOUS SYSTEM: Alert and oriented x 3. Cranial nerves II-XII are intact. Speech is normal. The patient is able to move all extremities. Normal muscle strength. Deep tendon reflexes are equal on both sides. Plantars were downgoing. LABORATORY DATA: Albumin level of 2, potassium level 3.4. Normal serum electrolytes. White cell count of 14,400, hemoglobin 9.1. Normal platelets. IMPRESSION: 1. The patient presenting with severe adult failure to thrive, metastatic cancer of the lung to the liver and status post chemotherapy started in January by Dr. Keller and since then, patient's condition has declined. Mental status has deteriorated. She is having confusion off and on, poor appetite, increased weakness, difficulty with ambulation and she is severely malnourished. The patient's daughter is moving in to [facility] to take care of her at home. The patient's daughter is requesting appetite stimulation and hopes that her mother improves enough that the mother has better quality of life. Apparently, chemotherapy has affected the patient and made her weaker, considering she is already weak from her malignancy and advance adult failure to thrive. The patient also in acute over chronic respiratory failure and has bibasilar interstitial fibrosis including COPD. Apparently, the patient is not tolerating chemotherapy very well and one option of treatment would be to stop the chemotherapy and let the patient recover at least for now. For appetite stimulant, the patient has been started on Marinol as requested by the hospitalist application processor today. 2. Hospice consult to be considered by daughter when the patient is going home with her to keep the patient comfortable. Avoid air hunger because of her chronic respiratory failure. 3. Sepsis, treated with antibiotics and followed closely at the hospital. 4. Severe protein-calorie malnutrition. Nutritional experts at the hospital are already working with the patient and she is being encouraged to eat and started on appetite stimulant. 5. Situation discussed in good detail with the patient's daughter and the patient herself and hospice consult is being considered by patient and her daughter. Dr. Bruce Gil, thank you for asking me to see the patient. We will follow along with you. [place], [place] REPORT OF CONSULTATION NAME: SARAHI NELSON UNIT #: [id number] ROOM: 504 DOCTOR: CHRISTY BUTLER MD BIRTHDATE: [birth year] CHRISTY BUTLER MD CM:CONSTR:REPORT OF CONSULTATION 39 03/04/18 0032 interface
[2018-03-02 10:06] VITALS: BP 104/51
[2018-03-02 10:38] LABS: BASO # 0.1 10*3/uL (0.0-0.1); BASO % 0.3 % (0.0-1.0); EOS # 0.1 10*3/uL (0.0-0.4); EOS % 0.3 % (1.0-4.0); HEMATOCRIT 29.1 % (37.0-47.0); HEMOGLOBIN 9.1 g/dl (12.0-16.0); LYMPH # 0.9 10*3/uL (1.3-4.4); LYMPH % 6.1 % (27.0-41.0); MEAN CORPUSCULAR HGB 29.1 pg (27.0-31.0); MEAN CORPUSCULAR HGB CONC 31.3 g/dl (33.0-37.0); MEAN PLATELET VOLUME 11.8 fl (9.6-12.3); MONO # 1.4 10*3/uL (0.1-1.0); MONO % 9.9 % (3.0-9.0); NEUT # 11.7 10*3/uL (2.3-7.9); NEUT % 81.8 % (47.0-73.0); NUCLEATED RED BLOOD CELL 0.1 % (0.0-0.0); PLATELET COUNT AUTOMATED 322 10*3/uL (130-400); RED BLOOD COUNT 3.13 10*6/uL (4.10-5.10); RED CELL DISTRI WIDTH 19.3 % (0-14.5); WHITE BLOOD COUNT 14.4 10*3/uL (4.8-10.8)
[2018-03-02 10:45] VITALS: BP 100/59
[2018-03-02 10:55] LABS: ALKALINE PHOSPHATASE 280 U/L (45-117); BUN 20 mg/dl (7-24); CHLORIDE 96 mmol/L (98-107); CREATININE 0.93 mg/dL (0.55-1.02); POTASSIUM 3.4 mmol/L (3.5-5.1); SGOT/AST 58 IU/L (3-35); SGPT/ALT 34 U/L (12-78); SODIUM 134 mmol/L (136-145); TOTAL PROTEIN 6.2 gm/dL (6.4-8.2)
[2018-03-02 11:02] LABS: TROPONIN I < 0.015 ng/ml (<0.045)
[2018-03-02 11:59] VITALS: BP 95/55
[2018-03-02 13:30] VITALS: BP 122/73
[2018-03-02 16:00] VITALS: BP 119/63
[2018-03-02] MEDS ORDERED: Lopressor25 MG PO (16:10)
[2018-03-02] MEDS ORDERED: LASIX20 MG PO (16:11)
[2018-03-02 20:00] VITALS: BP 105/59
[2018-03-03] VITALS: BP 115/77
[2018-03-03 06:44] LABS: BASO % 0.1 % (0.0-1.0); EOS % 0.1 % (1.0-4.0); HEMATOCRIT 26.2 % (37.0-47.0); HEMOGLOBIN 8.1 g/dl (12.0-16.0); LYMPH # 0.4 10*3/uL (1.3-4.4); LYMPH % 3.8 % (27.0-41.0); MEAN CELL VOLUME 93.9 fl (81.0-99.0); MEAN CORPUSCULAR HGB CONC 30.9 g/dl (33.0-37.0); MEAN PLATELET VOLUME 12.3 fl (9.6-12.3); MONO # 0.5 10*3/uL (0.1-1.0); MONO % 4.8 % (3.0-9.0); NEUT # 9.2 10*3/uL (2.3-7.9); NEUT % 89.3 % (47.0-73.0); PLATELET COUNT AUTOMATED 311 10*3/uL (130-400); RED BLOOD COUNT 2.79 10*6/uL (4.10-5.10); RED CELL DISTRI WIDTH 19.4 % (0-14.5); WHITE BLOOD COUNT 10.3 10*3/uL (4.8-10.8)
[2018-03-03 07:20] LABS: ACT PARTIAL THROMBO TIME 36.9 SECONDS (20.8-31.5); INTERNATIONAL NORM RATIO 1.3 (2.0-3.5)
[2018-03-03 07:29] LABS: CHLORIDE 99 mmol/L (98-107); POTASSIUM 3.4 mmol/L (3.5-5.1); SODIUM 138 mmol/L (136-145)
[2018-03-03 07:50] LABS: BUN 20 mg/dl (7-24); CHOLESTEROL 126 mg/dL (<200); CREATININE 0.82 mg/dL (0.55-1.02); HDL CHOLESTEROL 47 mg/dl (40-60); LDL CHOLESTEROL 56 mg/dL (9-159); PHOSPHOROUS 3.4 mg/dL (2.5-4.9); THYROID STIM HORMONE (HS) 0.305 uIU/ml (0.358-4.75); TRIGLYCERIDES 113 mg/dl (<150); VLDL CHOLESTEROL 23 mg/dL (6-40)
[2018-03-03 08:00] VITALS: BP 115/66
[2018-03-03 11:53] LABS: VITAMIN D, 25-HYDROXY 38.1 ng/mL (30-100)
[2018-03-03 12:00] VITALS: BP 125/58
[2018-03-03 16:00] VITALS: BP 123/68
[2018-03-03 20:00] VITALS: BP 156/82
[2018-03-04] VITALS: BP 151/88
[2018-03-04 05:52] LABS: MEAN CELL VOLUME 94.2 fl (81.0-99.0); MEAN CORPUSCULAR HGB CONC 30.8 g/dl (33.0-37.0); MEAN PLATELET VOLUME 11.9 fl (9.6-12.3); NUCLEATED RED BLOOD CELL 0.3 % (0.0-0.0); PLATELET COUNT AUTOMATED 325 10*3/uL (130-400); RED BLOOD COUNT 2.76 10*6/uL (4.10-5.10); RED CELL DISTRI WIDTH 19.5 % (0-14.5); WHITE BLOOD COUNT 11.4 10*3/uL (4.8-10.8)
[2018-03-04 05:58] LABS: BUN 20 mg/dl (7-24); CHLORIDE 102 mmol/L (98-107); POTASSIUM 4.2 mmol/L (3.5-5.1); SODIUM 138 mmol/L (136-145)
[2018-03-04 06:02] LABS: PREALBUMIN 11 mg/dl (20-40)
[2018-03-04 06:32] LABS: TOTAL CELLS COUNTED 100 #CELLS
[2018-03-04 06:33] LABS: BURR CELLS FEW; SCHISTOCYTES FEW
[2018-03-04 06:34] LABS: ROULEAUX SLIGHT
[2018-03-04 06:35] LABS: PLATELET SUFFICIENCY NORMAL (NORMAL)
[2018-03-04 08:00] VITALS: BP 140/99
[2018-03-04] MEDS ORDERED: [UNRECOGNIZED DRUG - REMARK] PO (11:27)
[2018-03-04 12:00] VITALS: BP 138/88
[2018-03-04 16:00] VITALS: BP 153/87
[2018-03-04 20:00] VITALS: BP 153/100
[2018-03-04 20:25] VITALS: BP 154/98
[2018-03-05] VITALS (7 sets, daily range): BP systolic 110–158; BP diastolic 64–102
[2018-03-05 07:12] LABS: BUN 20 mg/dl (7-24); CHLORIDE 99 mmol/L (98-107); CREATININE 0.84 mg/dL (0.55-1.02); SODIUM 136 mmol/L (136-145)
[2018-03-05 07:13] LABS: HEMATOCRIT 28.3 % (37.0-47.0); HEMOGLOBIN 8.6 g/dl (12.0-16.0); MEAN CELL VOLUME 93.1 fl (81.0-99.0); MEAN CORPUSCULAR HGB 28.3 pg (27.0-31.0); MEAN CORPUSCULAR HGB CONC 30.4 g/dl (33.0-37.0); NUCLEATED RED BLOOD CELL 0.3 % (0.0-0.0); PLATELET COUNT AUTOMATED 359 10*3/uL (130-400); RED BLOOD COUNT 3.04 10*6/uL (4.10-5.10); RED CELL DISTRI WIDTH 19.5 % (0-14.5); WHITE BLOOD COUNT 10.6 10*3/uL (4.8-10.8)
[2018-03-05 07:44] LABS: TOTAL CELLS COUNTED 100 #CELLS
[2018-03-05 07:45] LABS: PLATELET SUFFICIENCY NORMAL (NORMAL); POLYCHROMASIA SLIGHT
[2018-03-05 19:00] LABS: BILIRUBIN NEGATIVE (NEGATIVE); BLOOD NEGATIVE (NEGATIVE); CLARITY CLEAR (CLEAR); COLOR YELLOW (YELLOW); GLUCOSE NEGATIVE (NEGATIVE); KETONE NEGATIVE (NEGATIVE); LEUKO ESTERASE NEGATIVE (NEGATIVE); NITRITE NEGATIVE (NEGATIVE); SPECIFIC GRAVITY 1.015 (1.005-1.030); UROBILINOGEN 0.2 E.U./dl (0.2-1.0)
[2018-03-05 19:07] LABS: BACTERIA TRACE; RBC 0-2 rbc/hpf (0-2); WBC 0-2 wbc/hpf (0-5)
[2018-03-06] VITALS (8 sets, daily range): BP systolic 122–171; BP diastolic 71–102
[2018-03-06 01:04] LABS: ADENOVIRUS Negative (Negative); INFLUENZA A Negative (Negative); INFLUENZA B Negative (Negative); METAPNEUMOVIRUS Negative (Negative); PARAINFLUENZA 1 Negative (Negative); PARAINFLUENZA 2 Negative (Negative); PARAINFLUENZA 3 Negative (Negative); RHINOVIRUS Negative (Negative); RSV A Negative (Negative); RSV B Negative (Negative)
[2018-03-06 06:52] LABS: HEMATOCRIT 29.3 % (37.0-47.0); HEMOGLOBIN 9.2 g/dl (12.0-16.0); MEAN CELL VOLUME 92.4 fl (81.0-99.0); MEAN CORPUSCULAR HGB CONC 31.4 g/dl (33.0-37.0); MEAN PLATELET VOLUME 11.7 fl (9.6-12.3); NUCLEATED RED BLOOD CELL 0.1 10*3/uL (0.0-0.0); NUCLEATED RED BLOOD CELL 0.4 % (0.0-0.0); PLATELET COUNT AUTOMATED 360 10*3/uL (130-400); RED BLOOD COUNT 3.17 10*6/uL (4.10-5.10); RED CELL DISTRI WIDTH 19.5 % (0-14.5); WHITE BLOOD COUNT 13.3 10*3/uL (4.8-10.8)
[2018-03-06 07:31] LABS: BUN 20 mg/dl (7-24); CHLORIDE 98 mmol/L (98-107); POTASSIUM 3.9 mmol/L (3.5-5.1); SODIUM 137 mmol/L (136-145)
[2018-03-06 07:34] LABS: CREATININE 0.77 mg/dL (0.55-1.02)
[2018-03-06 08:00] LABS: PLATELET SUFFICIENCY NORMAL (NORMAL); TOTAL CELLS COUNTED 100 #CELLS
[2018-03-07 00:29] VITALS: BP 122/71
[2018-03-07 05:49] LABS: HEMATOCRIT 28.6 % (37.0-47.0); MEAN CELL VOLUME 92.3 fl (81.0-99.0); MEAN CORPUSCULAR HGB CONC 31.5 g/dl (33.0-37.0); MEAN PLATELET VOLUME 11.8 fl (9.6-12.3); NUCLEATED RED BLOOD CELL 0.1 10*3/uL (0.0-0.0); NUCLEATED RED BLOOD CELL 0.4 % (0.0-0.0); PLATELET COUNT AUTOMATED 347 10*3/uL (130-400); RED CELL DISTRI WIDTH 19.6 % (0-14.5); WHITE BLOOD COUNT 15.4 10*3/uL (4.8-10.8)
[2018-03-07 06:04] LABS: BUN 18 mg/dl (7-24); CHLORIDE 99 mmol/L (98-107); CREATININE 0.65 mg/dL (0.55-1.02); SODIUM 137 mmol/L (136-145)
[2018-03-07 07:06] LABS: PLATELET SUFFICIENCY NORMAL (NORMAL); TOTAL CELLS COUNTED 100 #CELLS
[2018-03-07 08:00] VITALS: BP 152/88
[2018-03-07 12:00] VITALS: BP 125/79
[2018-03-07 13:06] LABS: ACID FAST SPEC PROCESSING Concentration (.)
[2018-03-07 16:00] VITALS: BP 132/92
[2018-03-07 20:00] VITALS: BP 115/82
[2018-03-08] VITALS: BP 131/83
[2018-03-08 05:55] LABS: BUN 18 mg/dl (7-24); CHLORIDE 98 mmol/L (98-107); CREATININE 0.68 mg/dL (0.55-1.02); POTASSIUM 3.5 mmol/L (3.5-5.1); SODIUM 137 mmol/L (136-145)
[2018-03-08 05:59] LABS: PREALBUMIN 19 mg/dl (20-40)
[2018-03-08 06:04] LABS: MEAN CELL VOLUME 91.2 fl (81.0-99.0); MEAN CORPUSCULAR HGB 28.3 pg (27.0-31.0); MEAN PLATELET VOLUME 11.6 fl (9.6-12.3); NUCLEATED RED BLOOD CELL 0.1 10*3/uL (0.0-0.0); NUCLEATED RED BLOOD CELL 0.4 % (0.0-0.0); PLATELET COUNT AUTOMATED 304 10*3/uL (130-400); RED BLOOD COUNT 3.18 10*6/uL (4.10-5.10); RED CELL DISTRI WIDTH 19.6 % (0-14.5); WHITE BLOOD COUNT 16.3 10*3/uL (4.8-10.8)
[2018-03-08 06:47] LABS: TOTAL CELLS COUNTED 100 #CELLS; TOXIC GRANULATION SLIGHT
[2018-03-08 06:48] LABS: PLATELET SUFFICIENCY NORMAL (NORMAL)
[2018-03-08 08:00] VITALS: BP 153/81
[2018-03-08 12:00] VITALS: BP 111/70
[2018-03-08 16:00] VITALS: BP 129/85
[2018-03-08 20:00] VITALS: BP 129/75
[2018-03-09] VITALS: BP 106/78
[2018-03-09 06:26] LABS: HEMATOCRIT 30.3 % (37.0-47.0); HEMOGLOBIN 9.6 g/dl (12.0-16.0); MEAN CELL VOLUME 92.4 fl (81.0-99.0); MEAN CORPUSCULAR HGB 29.3 pg (27.0-31.0); MEAN CORPUSCULAR HGB CONC 31.7 g/dl (33.0-37.0); NUCLEATED RED BLOOD CELL 0.1 10*3/uL (0.0-0.0); NUCLEATED RED BLOOD CELL 0.3 % (0.0-0.0); PLATELET COUNT AUTOMATED 317 10*3/uL (130-400); RED BLOOD COUNT 3.28 10*6/uL (4.10-5.10); RED CELL DISTRI WIDTH 19.8 % (0-14.5); WHITE BLOOD COUNT 21.1 10*3/uL (4.8-10.8)
[2018-03-09 07:01] LABS: TOTAL CELLS COUNTED 100 #CELLS
[2018-03-09 07:02] LABS: PLATELET SUFFICIENCY NORMAL (NORMAL); STOMATOCYTE FEW; TOXIC GRANULATION SLIGHT
[2018-03-09 07:06] LABS: CHLORIDE 96 mmol/L (98-107); POTASSIUM 3.4 mmol/L (3.5-5.1); SODIUM 136 mmol/L (136-145)
[2018-03-09 07:10] LABS: BUN 25 mg/dl (7-24); CREATININE 0.79 mg/dL (0.55-1.02)
[2018-03-09 08:00] VITALS: BP 113/70
[2018-03-09 12:00] VITALS: BP 123/66
[2018-03-09 16:00] VITALS: BP 136/74
[2018-03-09 20:00] VITALS: BP 119/69
[2018-03-10] VITALS: BP 103/74
[2018-03-10 08:00] VITALS: BP 100/61
[2018-03-10 10:25] LABS: BODY FLUID WBC 87 /uL
[2018-03-10 11:11] LABS: BF LYMPHOCYTES 12 %; BF MESOTHELIALS 69 %; BF MONOCYTES 1 %; BF NEUTROPHILS 18 %
[2018-03-10 12:00] VITALS: BP 90/62
[2018-03-10 16:00] VITALS: BP 110/65
[2018-03-10 20:00] VITALS: BP 108/69
[2018-03-11] VITALS: BP 104/72
[2018-03-11 06:38] LABS: HEMATOCRIT 32.1 % (37.0-47.0); HEMOGLOBIN 10.1 g/dl (12.0-16.0); MEAN CELL VOLUME 92.5 fl (81.0-99.0); MEAN CORPUSCULAR HGB 29.1 pg (27.0-31.0); MEAN CORPUSCULAR HGB CONC 31.5 g/dl (33.0-37.0); MEAN PLATELET VOLUME 12.1 fl (9.6-12.3); NUCLEATED RED BLOOD CELL 0.1 10*3/uL (0.0-0.0); NUCLEATED RED BLOOD CELL 0.2 % (0.0-0.0); PLATELET COUNT AUTOMATED 238 10*3/uL (130-400); RED BLOOD COUNT 3.47 10*6/uL (4.10-5.10); RED CELL DISTRI WIDTH 19.9 % (0-14.5); WHITE BLOOD COUNT 28.4 10*3/uL (4.8-10.8)
[2018-03-11 06:43] LABS: CREATININE 0.96 mg/dL (0.55-1.02)
[2018-03-11 07:08] LABS: TOTAL CELLS COUNTED 100 #CELLS
[2018-03-11 07:09] LABS: ACANTHOCYTES FEW; PLATELET SUFFICIENCY NORMAL (NORMAL); POLYCHROMASIA SLIGHT; TOXIC GRANULATION SLIGHT
[2018-03-11 08:00] VITALS: BP 115/58
[2018-03-11 09:55] LABS: ALBUMIN 2.1 gm/dl (3.1-4.5); ALKALINE PHOSPHATASE 189 U/L (45-117); BUN 34 mg/dl (7-24); CHLORIDE 97 mmol/L (98-107); CREATININE 1.01 mg/dL (0.55-1.02); POTASSIUM 3.9 mmol/L (3.5-5.1); SGOT/AST 62 IU/L (3-35); SGPT/ALT 33 U/L (12-78); SODIUM 138 mmol/L (136-145); TOTAL PROTEIN 5.9 gm/dL (6.4-8.2)
[2018-03-11 12:00] VITALS: BP 94/62
[2018-03-11 16:00] VITALS: BP 94/52
[2018-03-11 20:00] VITALS: BP 74/56
[2018-03-11 21:28] VITALS: BP 80/60
[2018-03-12] VITALS: BP 106/61
[2018-03-12 09:32] LABS: HEMATOCRIT 30.9 % (37.0-47.0); HEMOGLOBIN 9.7 g/dl (12.0-16.0); MEAN CELL VOLUME 92.5 fl (81.0-99.0); MEAN CORPUSCULAR HGB CONC 31.4 g/dl (33.0-37.0); NUCLEATED RED BLOOD CELL 0.1 10*3/uL (0.0-0.0); NUCLEATED RED BLOOD CELL 0.2 % (0.0-0.0); PLATELET COUNT AUTOMATED 211 10*3/uL (130-400); RED BLOOD COUNT 3.34 10*6/uL (4.10-5.10); RED CELL DISTRI WIDTH 19.8 % (0-14.5); WHITE BLOOD COUNT 28.9 10*3/uL (4.8-10.8)
[2018-03-12 09:55] LABS: TOTAL CELLS COUNTED 100 #CELLS
[2018-03-12 09:56] LABS: PLATELET SUFFICIENCY NORMAL (NORMAL); POLYCHROMASIA SLIGHT
[2018-03-12 12:00] VITALS: BP 84/50
[2018-03-12 16:00] VITALS: BP 89/72
[2018-03-12 20:00] VITALS: BP 89/53
[2018-03-13] VITALS: BP 110/77
[2018-03-13 08:00] VITALS: BP 106/45
[2018-03-13 12:00] VITALS: BP 121/90
[2018-03-13 12:43] LABS: HEMATOCRIT 30.5 % (37.0-47.0); HEMOGLOBIN 9.4 g/dl (12.0-16.0); MEAN CELL VOLUME 93.3 fl (81.0-99.0); MEAN CORPUSCULAR HGB 28.7 pg (27.0-31.0); MEAN CORPUSCULAR HGB CONC 30.8 g/dl (33.0-37.0); MEAN PLATELET VOLUME 12.3 fl (9.6-12.3); NUCLEATED RED BLOOD CELL 0.1 10*3/uL (0.0-0.0); NUCLEATED RED BLOOD CELL 0.2 % (0.0-0.0); PLATELET COUNT AUTOMATED 197 10*3/uL (130-400); RED BLOOD COUNT 3.27 10*6/uL (4.10-5.10); WHITE BLOOD COUNT 32.3 10*3/uL (4.8-10.8)
[2018-03-13 12:52] LABS: ACT PARTIAL THROMBO TIME 34.5 SECONDS (20.8-31.5); INTERNATIONAL NORM RATIO 1.9 (2.0-3.5)
[2018-03-13 12:58] LABS: ALKALINE PHOSPHATASE 217 U/L (45-117); BUN 31 mg/dl (7-24); CHLORIDE 100 mmol/L (98-107); CREATININE 0.88 mg/dL (0.55-1.02); PHOSPHOROUS 2.2 mg/dL (2.5-4.9); POTASSIUM 3.9 mmol/L (3.5-5.1); SGOT/AST 69 IU/L (3-35); SGPT/ALT 37 U/L (12-78); SODIUM 141 mmol/L (136-145); TOTAL PROTEIN 5.6 gm/dL (6.4-8.2)
[2018-03-13 13:04] LABS: PLATELET SUFFICIENCY NORMAL (NORMAL); TOTAL CELLS COUNTED 100 #CELLS
[2018-03-13 16:00] VITALS: BP 154/85
[2018-03-13 20:00] VITALS: BP 117/71
[2018-03-14] VITALS (7 sets, daily range): BP systolic 102–160; BP diastolic 68–84
[2018-03-14 05:37] LABS: HEMATOCRIT 32.6 % (37.0-47.0); MEAN CELL VOLUME 93.9 fl (81.0-99.0); MEAN CORPUSCULAR HGB 28.8 pg (27.0-31.0); MEAN CORPUSCULAR HGB CONC 30.7 g/dl (33.0-37.0); MEAN PLATELET VOLUME 12.4 fl (9.6-12.3); NUCLEATED RED BLOOD CELL 0.1 10*3/uL (0.0-0.0); NUCLEATED RED BLOOD CELL 0.3 % (0.0-0.0); PLATELET COUNT AUTOMATED 176 10*3/uL (130-400); RED BLOOD COUNT 3.47 10*6/uL (4.10-5.10); RED CELL DISTRI WIDTH 20.2 % (0-14.5); WHITE BLOOD COUNT 32.2 10*3/uL (4.8-10.8)
[2018-03-14 06:04] LABS: ALBUMIN 1.9 gm/dl (3.1-4.5); ALKALINE PHOSPHATASE 252 U/L (45-117); BUN 32 mg/dl (7-24); CHLORIDE 103 mmol/L (98-107); CREATININE 0.83 mg/dL (0.55-1.02); PHOSPHOROUS 2.4 mg/dL (2.5-4.9); POTASSIUM 4.2 mmol/L (3.5-5.1); SGOT/AST 60 IU/L (3-35); SGPT/ALT 40 U/L (12-78); SODIUM 143 mmol/L (136-145); TOTAL PROTEIN 5.4 gm/dL (6.4-8.2)
[2018-03-14 06:23] LABS: PLATELET SUFFICIENCY NORMAL (NORMAL); TOTAL CELLS COUNTED 100 #CELLS
[2018-03-14 06:24] LABS: POLYCHROMASIA SLIGHT
[2018-03-15] VITALS: BP 118/84
[2018-03-15 07:00] LABS: HEMATOCRIT 31.4 % (37.0-47.0); HEMOGLOBIN 9.7 g/dl (12.0-16.0); MEAN CELL VOLUME 94.3 fl (81.0-99.0); MEAN CORPUSCULAR HGB 29.1 pg (27.0-31.0); MEAN CORPUSCULAR HGB CONC 30.9 g/dl (33.0-37.0); MEAN PLATELET VOLUME 13.2 fl (9.6-12.3); NUCLEATED RED BLOOD CELL 0.1 10*3/uL (0.0-0.0); NUCLEATED RED BLOOD CELL 0.5 % (0.0-0.0); PLATELET COUNT AUTOMATED 158 10*3/uL (130-400); RED BLOOD COUNT 3.33 10*6/uL (4.10-5.10); RED CELL DISTRI WIDTH 20.4 % (0-14.5); WHITE BLOOD COUNT 26.6 10*3/uL (4.8-10.8)
[2018-03-15 07:30] LABS: ALBUMIN 1.9 gm/dl (3.1-4.5); BUN 36 mg/dl (7-24); CHLORIDE 102 mmol/L (98-107); CREATININE 0.89 mg/dL (0.55-1.02); PHOSPHOROUS 2.4 mg/dL (2.5-4.9); POTASSIUM 4.2 mmol/L (3.5-5.1); SGPT/ALT 37 U/L (12-78); SODIUM 142 mmol/L (136-145); TOTAL PROTEIN 5.2 gm/dL (6.4-8.2)
[2018-03-15 07:33] LABS: ALKALINE PHOSPHATASE 221 U/L (45-117); SGOT/AST 55 IU/L (3-35)
[2018-03-15 08:00] VITALS: BP 139/86
[2018-03-15 08:05] LABS: PLATELET SUFFICIENCY NORMAL (NORMAL); TOTAL CELLS COUNTED 100 #CELLS
[2018-03-15 08:06] LABS: POLYCHROMASIA SLIGHT; TOXIC GRANULATION SLIGHT
[2018-03-15 12:00] VITALS: BP 71/46
[2018-04-16 10:03] LABS: ACID FAST CULTURE Negative (.)
== END 2018-03-15 16:50 | disposition hospice, home (50) | DRG 871 ==
LOC: ED 10:06 → 5E 12:16 → ICCU 03-13 11:18 → 4E 03-14 13:00
PROVIDERS: Emergency Medicine; Family Medicine; Internal Medicine; Internal Medicine Critical Care Medicine; Registered Nurse
PROC: 0BC58ZZ Extirpation of Matter from Right Middle Lobe Bronchus, Via Natural or Artificial Opening Endoscopic (ICD-10-PCS; principal; 2018-03-06)
PROC: 0BC18ZZ Extirpation of Matter from Trachea, Via Natural or Artificial Opening Endoscopic (ICD-10-PCS; principal; 2018-03-06)
PROC: 0BC38ZZ Extirpation of Matter from Right Main Bronchus, Via Natural or Artificial Opening Endoscopic (ICD-10-PCS; principal; 2018-03-06)
PROC: 0BC68ZZ Extirpation of Matter from Right Lower Lobe Bronchus, Via Natural or Artificial Opening Endoscopic (ICD-10-PCS; principal; 2018-03-06)
PROC: 0BC88ZZ Extirpation of Matter from Left Upper Lobe Bronchus, Via Natural or Artificial Opening Endoscopic (ICD-10-PCS; principal; 2018-03-06)
PROC: 0BC98ZZ Extirpation of Matter from Lingula Bronchus, Via Natural or Artificial Opening Endoscopic (ICD-10-PCS; principal; 2018-03-06)
PROC: 0BC78ZZ Extirpation of Matter from Left Main Bronchus, Via Natural or Artificial Opening Endoscopic (ICD-10-PCS; principal; 2018-03-06)
PROC: BD1BYZZ Fluoroscopy of Mouth/Oropharynx using Other Contrast (ICD-10-PCS; principal; 2018-03-06)
PROC: 0BC48ZZ Extirpation of Matter from Right Upper Lobe Bronchus, Via Natural or Artificial Opening Endoscopic (ICD-10-PCS; principal; 2018-03-06)
PROC: 0BCB8ZZ Extirpation of Matter from Left Lower Lobe Bronchus, Via Natural or Artificial Opening Endoscopic (ICD-10-PCS; principal; 2018-03-06)
PROC: 0W993ZX Drainage of Right Pleural Cavity, Percutaneous Approach, Diagnostic (ICD-10-PCS; 2018-03-10)
DX: A41.9 Sepsis, unspecified organism (principal); E43 Unspecified severe protein-calorie malnutrition; J96.21 Acute and chronic respiratory failure with hypoxia; I26.99 Other pulmonary embolism without acute cor pulmonale; J69.0 Pneumonitis due to inhalation of food and vomit; C78.7 Secondary malignant neoplasm of liver and intrahepatic bile duct; E83.42 Hypomagnesemia; E87.1 Hypo-osmolality and hyponatremia; C34.90 Malignant neoplasm of unspecified part of unspecified bronchus or lung; J44.1 Chronic obstructive pulmonary disease with (acute) exacerbation; Z66 Do not resuscitate; E87.8 Other disorders of electrolyte and fluid balance, not elsewhere classified; J84.10 Pulmonary fibrosis, unspecified; Z51.5 Encounter for palliative care; D64.9 Anemia, unspecified; R73.9 Hyperglycemia, unspecified; R62.7 Adult failure to thrive; I48.0 Paroxysmal atrial fibrillation; R74.0 Nonspecific elevation of levels of transaminase and lactic acid dehydrogenase [LDH]; E87.6 Hypokalemia; F41.9 Anxiety disorder, unspecified; G89.3 Neoplasm related pain (acute) (chronic); Z88.0 Allergy status to penicillin; Z88.8 Allergy status to other drugs, medicaments and biological substances; Z79.2 Long term (current) use of antibiotics; Z79.899 Other long term (current) drug therapy; Z90.49 Acquired absence of other specified parts of digestive tract; Z90.710 Acquired absence of both cervix and uterus; Z99.81 Dependence on supplemental oxygen; Z68.23 Body mass index [BMI] 23.0-23.9, adult; Z82.61 Family history of arthritis; Z82.3 Family history of stroke; Z84.1 Family history of disorders of kidney and ureter

== ENCOUNTER 2018-03-15 17:22 | Inpatient (IN) | payer OTHER ==
[~2018-03-15] VITALS: Ht 170.2 cm; Wt 68.6 kg
[~2018-03-15 17:22] MED LIST changes: +LASIX20 MG PO; +Lopressor25 MG PO; +[UNRECOGNIZED DRUG - REMARK] PO
[2018-03-16 08:00] VITALS: BP 42/0
== END 2018-03-16 20:23 | disposition expired | DRG 437 ==
LOC: 4E 17:22
DX: C78.7 Secondary malignant neoplasm of liver and intrahepatic bile duct (principal); Z51.5 Encounter for palliative care